=== PATIENT | male | born 1965 | race African-American/Black ===

== ENCOUNTER 2019-01-07 10:05 | Emergency (ER) | payer MEDICARE ==
[~2019-01-07] VITALS: Ht 166.4 cm; Wt 83.0 kg
[2019-01-07] MEDS ORDERED: MORPHINE SULFATE 10 MG/ML VIAL. IV ONE (11:15)
[2019-01-07] MEDS ORDERED: ONDANSETRON PF 4 MG/2 ML VIAL. IV ONE (11:15)
[2019-01-07] MEDS ORDERED: IV NORMAL SALINE 1000ML BAG 1,000 ML IV ONE (11:15)
[2019-01-07] MEDS ORDERED: CONTRAST GIVEN. MC PRN (11:30)
[2019-01-07] MEDS ORDERED: IOHEXOL 300 MG/ML 100ML VIAL. IV ONE (11:30)
[2019-01-07] MEDS ORDERED: ONDANSETRON ODT 4 MG TAB.RAPDIS. PO ONE (12:30)
[2019-01-07] MEDS ORDERED: MORPHINE SULFATE 4 MG/ML VIAL. IM ONE (12:30)
[2019-01-07 12:32] LABS: AMPHETAMINE/METHAMPHETAMINE NEG (NEG); BARBITURATES NEG (NEG); BENZODIAZEPINES NEG (NEG); CANNABINOIDS POS (NEG); COCAINE NEG (NEG); METHADONE NEG (NEG); OPIATES NEG (NEG); PHENCYCLIDINE NEG (NEG)
[2019-01-07 12:33] LABS: BILIRUBIN,URINE LARGE (NEG); CLARITY,URINE CLEAR; COLOR,URINE AMBER; NITRITE,URINE NEGATIVE (NEG); PROTEIN,URINE 100 mg/dL (NEG-TRACE)
[2019-01-07 12:43] LABS: BASO % 0 % (0-3); EOS % 0 % (0-3); HEMATOCRIT 49.1 % (39.0-53.0); HEMOGLOBIN 16.1 g/dL (13.0-17.5); LYMPH # 1.5 x10^3/uL (1.0-4.8); LYMPH % 13 % (24-48); MEAN CORPUSCULAR HEMOGLOBIN 29 pg (25-35); MEAN CORPUSCULAR HGB CONC 33 g/dL (31-37); MEAN CORPUSCULAR VOLUME 88 fL (79-100); MONO % 9 % (0-9); NEUT # 9.1 x10^3uL (1.8-7.7); NEUT % 78 % (31-73); PLATELET COUNT 287 x10^3/uL (140-400); RED BLOOD COUNT 5.61 x10^6/uL (4.30-5.70); RED CELL DISTRIBUTION WIDTH 15.8 % (11.5-14.5); WHITE BLOOD COUNT 11.7 x10^3/uL (4.0-11.0)
[2019-01-07 12:46] LABS: INFLUENZA A PATIENT NEGATIVE (NEGATIVE); INFLUENZA B PATIENT NEGATIVE (NEGATIVE)
[2019-01-07 12:49] LABS: HYALINE CASTS, URINE MANY /HPF; SQUAMOUS EPITHELIAL CELL,UR FEW /LPF
[2019-01-07 12:55] LABS: BACTERIA,URINE FEW /HPF (0-FEW); RBC,URINE OCC /HPF (0-2)
[2019-01-07 12:56] LABS: CALCIUM 9.1 mg/dL (8.5-10.1); CREATININE 1.1 mg/dL (0.7-1.3); GFR 84.4; POTASSIUM 4.5 mmol/L (3.5-5.1)
[2019-01-07 12:58] LABS: ALBUMIN 3.6 g/dL (3.4-5.0); ALBUMIN/GLOBULIN RATIO 1.1 (1.0-1.7); TOTAL BILIRUBIN 1.1 mg/dL (0.2-1.0)
[2019-01-07] MEDS ORDERED: MORPHINE SULFATE 4 MG/ML VIAL. IV ONE (13:15)
--- NOTE | 2019-01-07 13:47 | RAD ---
PQRS Compliance statement: One or more of the following individualized dose reduction techniques were utilized for this examination: 1. Automated exposure control. 2. Adjustment of the mA and/or kV according to patient size. 3. Use of iterative reconstruction technique. Indication:ABD PAIN H/O C DIFF INJ 75ML OMNI 300 NO PREV TECHNIQUE: CT abdomen and pelvis with IV contrast with multiplanar reformats. COMPARISON: Previous exam from 10/23/2004 FINDINGS: Heart is normal in size. No pericardial or pleural effusion. Clear lung bases. Liver, spleen, pancreas, right adrenal within normal limits. Status post cholecystectomy. Status post gastric bypass. 2.0 x 1.7 cm nodule is seen in the left adrenal gland. No nephrolithiasis or hydronephrosis. No free pelvic fluid or ascites. Small fat-containing right inguinal hernia. No enlarged retroperitoneal or pelvic adenopathy. No bowel obstruction. Normal appendix. The prostate and seminal vesicles show no large mass. Urinary bladder is within normal limits. Mild diffuse atherosclerotic disease of the abdominal aorta. No pneumoperitoneum. No suspicious bony lesion. IMPRESSION: 1. Left abdomen gland nodule may represent adenoma or metastasis. MRI abdomen with IV contrast recommended. Electronically signed by: Justin Serna DO (01/07/2019 1:44 PM) [id number]
[2019-01-07] MEDS ORDERED: HYDROmorphone 2 MG/ML VIAL IV ONE ×2 (15:00→16:15)
[2019-01-07] MEDS ORDERED: HYDR-3164 PO (16:25)
[2019-01-07] MEDS ORDERED: ONDA4TAB7 PO (16:25)
--- NOTE | 2019-01-07 16:26 | PHYS DOC ---
Past Medical History Past Medical History: Diabetes-Type II, Hypertension, Pancreatitis, Other Additional Past Medical Histor: C-DIFF Past Surgical History: Other Additional Past Surgical Histo: PANCREASE Alcohol Use: None Drug Use: None Adult General Chief Complaint Chief Complaint: ABDOMINAL PAIN HPI HPI Patient is a 54 year old male with history of pancreatitis, C. difficile, hypertension, diabetes type 2, who presents to the ED today complaining of 8 out of 10 generalized abdominal pain that is chronic. Patient states this pain has been going for 6 months, he states the pain began when he was diagnosed with C. difficile. He states he was treated for C. difficile. He states he has had diarrhea since then. Patient denies any fever, denies any vomiting, denies any melena. He states he was seen at [facility] for the same pain [address] Henriquez Review of Systems Review of Systems Constitutional: Denies fever or chills [] Eyes: Denies change in visual acuity, redness, or eye pain [] HENT: Denies nasal congestion or sore throat [] Respiratory: Denies cough or shortness of breath [] Cardiovascular: No additional information not addressed in HPI [] GI: Reports generalized abdominal pain with the diarrhea, denies nausea, vomiting, bloody stools : Denies dysuria or hematuria [] Musculoskeletal: Denies back pain or joint pain [] Integument: Denies rash or skin lesions [] Neurologic: Denies headache, focal weakness or sensory changes [] Endocrine: Denies polyuria or polydipsia [] All other systems were reviewed and found to be within normal limits, except as documented in this note. Current Medications Current Medications Current Medications Medications (Trade) Dose Ordered Sig/Rajiv Start Time Stop Time Status Last Admin Dose Admin Hydromorphone HCl (Dilaudid) 1 mg 1X ONCE 01/07/19 16:15 01/07/19 16:16 UNV Info (CONTRAST GIVEN -- Rx MONITORING) 1 each PRN DAILY PRN 01/07/19 11:30 01/09/19 11:29 Iohexol (Omnipaque 300 Mg/ml) 75 ml 1X ONCE 01/07/19 11:30 01/07/19 11:31 DC 01/07/19 13:25 75 ML Morphine Sulfate (Morphine Sulfate) 4 mg 1X ONCE 01/07/19 13:15 01/07/19 13:16 DC 01/07/19 13:04 4 MG Ondansetron HCl (Zofran Odt) 4 mg 1X ONCE 01/07/19 12:30 01/07/19 12:31 DC 01/07/19 12:58 4 MG Ondansetron HCl (Zofran) 4 mg 1X ONCE 01/07/19 11:15 01/07/19 11:16 DC Sodium Chloride 1,000 ml @ 1,000 mls/hr 1X ONCE 01/07/19 11:15 01/07/19 12:14 DC 01/07/19 13:02 1,000 MLS/HR Allergies Allergies Allergies Coded Allergies Type Severity Reaction Last Updated Verified aspirin Allergy Intermediate Hives 01/07/19 Yes fentanyl Allergy Intermediate Hives 01/07/19 Yes ketorolac Allergy Intermediate Hives 01/07/19 Yes tramadol Allergy Intermediate Hives 01/07/19 Yes Physical Exam Physical Exam Constitutional: Well developed, well nourished, no acute distress, non-toxic appearance. [] HENT: Normocephalic, atraumatic, bilateral external ears normal, oropharynx moist, no oral exudates, nose normal. [] Eyes: PERRLA, EOMI, conjunctiva normal, no discharge. [] Neck: Normal range of motion, no tenderness, supple, no stridor. [] Cardiovascular:Heart rate regular rhythm, no murmur [] Lungs & Thorax: Bilateral breath sounds clear to auscultation [] Abdomen: Old healed surgical incision noted on the lateral upper abdomen. Bowel sounds normal, soft, diffuse tenderness, no masses, no pulsatile masses. Negative psoas sign, negative obturator sign, no guarding Skin: Warm, dry, no erythema, no rash. [] Back: No tenderness, no CVA tenderness. [] Extremities: No tenderness, no cyanosis, no clubbing, ROM intact, no edema. [] Neurologic: Alert and oriented X 3, normal motor function, normal sensory function, no focal deficits noted. [] Psychologic: Affect normal, judgement normal, mood normal. [] Current Patient Data Vital Signs Vital Signs Date Time Temp Pulse Resp B/P (MAP) Pulse Ox O2 Delivery O2 Flow Rate FiO2 01/07/19 15:18 20 Room Air 01/07/19 13:04 100 01/07/19 10:15 98.2 112 122/84 (97) 98.2 Lab Values Laboratory Tests Test 01/07/19 10:50 01/07/19 11:55 01/07/19 12:35 Urine Collection Type Unknown Urine Color Dorina Urine Clarity Clear Urine pH 5.0 Urine Specific [place] >=1.030 Urine Protein 100 mg/dL (NEG-TRACE) Urine Glucose (UA) >=1000 mg/dL (NEG) Urine Ketones (Stick) 15 mg/dL (NEG) Urine Blood Negative (NEG) Urine Nitrite Negative (NEG) Urine Bilirubin Large (NEG) Urine Urobilinogen Dipstick 1.0 mg/dL (0.2 mg/dL) Urine Leukocyte Esterase Negative (NEG) Urine RBC Occ /HPF (0-2) Urine WBC 1-4 /HPF (0-4) Urine Squamous Epithelial Cells Few /LPF Urine Bacteria Few /HPF (0-FEW) Urine Hyaline Casts Many /HPF Urine Mucus Marked /LPF Urine Opiates Screen Neg (NEG) Urine Methadone Screen Neg (NEG) Urine Barbiturates Neg (NEG) Urine Phencyclidine Screen Neg (NEG) Urine Amphetamine/Methamphetamine Neg (NEG) Urine Benzodiazepines Screen Neg (NEG) Urine Cocaine Screen Neg (NEG) Urine Cannabinoids Screen Pos (NEG) Urine Ethyl Alcohol Neg (NEG) Influenza Type A Antigen Negative (NEGATIVE) Influenza Type B Antigen Negative (NEGATIVE) White Blood Count 11.7 x10^3/uL (4.0-11.0) H Red Blood Count 5.61 x10^6/uL (4.30-5.70) Hemoglobin 16.1 g/dL (13.0-17.5) Hematocrit 49.1 % (39.0-53.0) Mean Corpuscular Volume 88 fL (79-100) Mean Corpuscular Hemoglobin 29 pg (25-35) Mean Corpuscular Hemoglobin Concent 33 g/dL (31-37) Red Cell Distribution Width 15.8 % (11.5-14.5) H Platelet Count 287 x10^3/uL (140-400) Neutrophils (%) (Auto) 78 % (31-73) H Lymphocytes (%) (Auto) 13 % (24-48) L Monocytes (%) (Auto) 9 % (0-9) Eosinophils (%) (Auto) 0 % (0-3) Basophils (%) (Auto) 0 % (0-3) Neutrophils # (Auto) 9.1 x10^3uL (1.8-7.7) H Lymphocytes # (Auto) 1.5 x10^3/uL (1.0-4.8) Monocytes # (Auto) 1.0 x10^3/uL (0.0-1.1) Eosinophils # (Auto) 0.0 x10^3/uL (0.0-0.7) Basophils # (Auto) 0.0 x10^3/uL (0.0-0.2) Sodium Level 139 mmol/L (136-145) Potassium Level 4.5 mmol/L (3.5-5.1) Chloride Level 102 mmol/L (98-107) Carbon Dioxide Level 25 mmol/L (21-32) Anion Gap 12 (6-14) Blood Urea Nitrogen 20 mg/dL (8-26) Creatinine 1.1 mg/dL (0.7-1.3) Estimated GFR (Cockcroft-Gault) 84.4 BUN/Creatinine Ratio 18 (6-20) Glucose Level 218 mg/dL (70-99) H Calcium Level 9.1 mg/dL (8.5-10.1) Total Bilirubin 1.1 mg/dL (0.2-1.0) H Aspartate Amino Transferase (AST) 14 U/L (15-37) L Alanine Aminotransferase (ALT) 32 U/L (16-63) Alkaline Phosphatase 160 U/L (46-116) H Total Protein 7.0 g/dL (6.4-8.2) Albumin 3.6 g/dL (3.4-5.0) Albumin/Globulin Ratio 1.1 (1.0-1.7) Lipase 27 U/L (73-393) L Ethyl Alcohol Level < 10 mg/dL (0-10) Laboratory Tests 01/07/19 12:35 Laboratory Tests 01/07/19 12:35 EKG EKG [] Radiology/Procedures Radiology/Procedures [] Course & Med Decision Making Course & Med Decision Making Pertinent Labs and Imaging studies reviewed. (See chart for details) This is a 54-year-old male patient presenting to the ED today with chronic abdominal pain and chronic diarrhea from cd. He was diagnosed 6 months ago. He was treated. Patient did not have any diarrhea episodes in the ED hence unable to collect stool. CBC with a WBC of 11.7, CMP with glucose of 218, patient is diabetic. Patient is in no distress. CT of the abdomen and pelvic was negative for any acute findings, noted for left adrenal mass, recommended MRI. Consulted with Dr. Arenas on-call for Dr. Henriquez. Considering patient is stable, he 'll be discharged to follow-up in clinic. Dragon Disclaimer Dragon Disclaimer This electronic medical record was generated, in whole or in part, using a voice recognition dictation system. Departure Departure Impression: Primary Impression: Chronic generalized abdominal pain Additional Impression: Chronic diarrhea Disposition: HOME, SELF-CARE Condition: STABLE Referrals: Katelin HENRIQUEZ MD (PCP) Call his office tomorrow and set up a follow-up appointment JOIE WATTS MD Call his office tomorrow and set up a follow-up appointment Patient Instructions: Abdominal Pain Additional Instructions: You were evaluated in the emergency room for abdominal pain and chronic diarrhea. Please contact Dr. Henriquez's office tomorrow and set up a follow-up appointment. We also provided do a help desk coordinator, follow-up with them. Scripts Ondansetron Hcl (ZOFRAN) 4 Mg Tablet 1 TAB PO Q6HRS, #20 TAB Prov: KANDI GLEZ APRN 01/07/19 Hydrocodone/Apap 5-325 (NORCO 5-325 TABLET) 1 Each Tablet 1 TAB PO Q6HRS, #8 TAB Prov: KANDI GLEZ APRN 01/07/19 Problem Qualifiers KANDI GLEZ APRN Jan 07, 2019 16:26
[2019-01-07 16:33] VITALS: BP 170/85
[2019-02-23] MEDS ORDERED: FINA5TAB4 PO (12:50)
[2019-02-23] MEDS ORDERED: PREG300C PO (12:50)
[2019-02-23] MEDS ORDERED: LOSA-73 PO (12:50)
[2019-02-23] MEDS ORDERED: ZOLP10TA PO (12:50)
[2019-02-23] MEDS ORDERED: OMEP20CA10 PO (12:50)
[2019-02-23] MEDS ORDERED: ASPI-630 PO (12:50)
[2019-02-23] MEDS ORDERED: LIPA1CAP14 PO (12:50)
== END 2019-01-07 16:57 | disposition home or self-care (01) ==
LOC: ER 10:05
DX: G89.29 Other chronic pain (principal); R10.84 Generalized abdominal pain; R19.7 Diarrhea, unspecified; I10 Essential (primary) hypertension; E11.9 Type 2 diabetes mellitus without complications; Z88.4 Allergy status to anesthetic agent; Z88.6 Allergy status to analgesic agent; Z88.8 Allergy status to other drugs, medicaments and biological substances
CPT/HCPCS: 36415; 74177; 80053; 80307; 81001; 83690; 85025; 87804; 96361; 96374; 96375; 96376; 99284; G0480; J1170; J2270; J7030; Q0162; Q9967

== ENCOUNTER → 2019-07-30 | Day surgery (SDC) | payer MEDICARE, MEDICAID ==
[~2019-07-30] MED LIST: ASPI-630 PO; DEXTROSE 50% 25 GM / 50ML DISP.SYRIN. IV ONE; FINA5TAB4 PO; HYDR-3164 PO; INSU100C SQ; INSU100V37 SQ; IV RINGERS,LACTATED 1000ML 1,000 ML IV SCH; LIDOCAINE 2% PF 5 ML VIAL. ONE; LIPA1CAP14 PO; LOSA-73 PO; OMEP20CA10 PO; ONDA4TAB12 PO; ONDA4TAB7 PO; PREG300C PO; PROPOFOL 60 ML IV ONE; TAMS0.4C97 PO; ZOLP10TA PO
[2019-07-30 10:00] VITALS: BP 128/62
--- NOTE | 2019-08-03 11:07 | PATHOLOGY ---
[facility] Accession Number: [id number] . 01 Material submitted: . PART A: anastomosis - ANASTOMOSIS ULCER BX PART B: colon - RANDOM COLON BX'S . 01 Clinical history: . Weight loss, diarrhea. . 02 Diagnosis: A. Anastomosis ulcer, biopsy: - Granulation tissue and features of ulcer. - Abundant fungal organisms compatible with emy species present - Negative for malignancy. . B. Random colon, biopsy: - Fragments of unremarkable colonic mucosa. - There is no evidence of microscopic colitis or inflammatory bowel disease. . (MAP[place] [place] 08[place]02[place]2019) . Co-review: Dr. Lucila CHILD 08/03/2019 1045 Local . 02 Electronically signed: . Cruz Ghosh MD, Pathologist NPI- [id number] . 01 Gross description: . A. Received in formalin labeled "Brown, Aniket, anastomosis ulcer BX" is a 1.2 x 0.6 x 0.1 cm aggregate of tellez-brown mucosa fragments. The specimen is submitted in A1. . B. Received in formalin labeled "Brown, Aniket, random colon BXs" is a 1.8 x 0.7 x 0.1 cm aggregate of tellez-brown mucosa fragments. The specimen is submitted in B1. [place] [place] SY/[facility] 08/01/2019 1210 Local . 02 Pathologist provided ICD-10: K28.9, R19.7 . 02 CPT . 986864, 461815 Specimen Comment: A courtesy copy of this report has been sent to Specimen Comment: [phone], . Specimen Comment: Report sent to / DR VIERA Performed at: [address] [facility] [address], [place], [place] [id number] MD Jaime De Guzman MD Phone: [phone] Performed at: [address], [place], [place] [id number] MD Kimberly Henriquez MD Phone: [phone]
== END ==
LOC: ENDOS 07:39
PROVIDERS: ATTEND Internal Medicine Gastroenterology
DX: K52.9 Noninfective gastroenteritis and colitis, unspecified (principal); K64.8 Other hemorrhoids; K25.9 Gastric ulcer, unspecified as acute or chronic, without hemorrhage or perforation; F32.9 Major depressive disorder, single episode, unspecified; E11.9 Type 2 diabetes mellitus without complications; F41.9 Anxiety disorder, unspecified; K21.9 Gastro-esophageal reflux disease without esophagitis; I25.2 Old myocardial infarction; E78.00 Pure hypercholesterolemia, unspecified; Z90.49 Acquired absence of other specified parts of digestive tract; Z98.890 Other specified postprocedural states
CPT/HCPCS: 43239; 45380; 82962; 88305; J2001; J2704; J7042

== ENCOUNTER 2020-07-19 14:19 | Inpatient (IN) | payer MEDICARE, MEDICAID ==
[~2020-07-19] VITALS: Ht 165.1 cm; Wt 62.7 kg
[~2020-07-19 14:19] MED LIST changes: -DEXTROSE 50% 25 GM / 50ML DISP.SYRIN. IV ONE; -IV RINGERS,LACTATED 1000ML 1,000 ML IV SCH; -LIDOCAINE 2% PF 5 ML VIAL. ONE; -OMEP20CA10 PO; +OMEP20CA16 PO; -PROPOFOL 60 ML IV ONE
[2020-07-19] MEDS ORDERED: IV NORMAL SALINE 1000ML BAG 1,000 ML IV ONE (15:30)
[2020-07-19] MEDS ORDERED: ONDANSETRON PF 4 MG/2 ML VIAL. IVP ONE (15:30)
[2020-07-19] MEDS ORDERED: HYDROmorphone 2 MG/ML VIAL IV ONE ×2 (15:30→20:45)
--- NOTE | 2020-07-19 16:03 | PHYS DOC ---
Past Medical History Past Medical History: Depression, Diabetes-Type II, Hypertension, Pancreatitis, Other Additional Past Medical Histor: C-DIFF Past Surgical History: Other Additional Past Surgical Histo: PANCREASE,ABD SURGERY BOWEL TEAR Smoking Status: Current Every Day Smoker Alcohol Use: None Drug Use: None General Adult EDM: Chief Complaint: ABDOMINAL PAIN HPI: HPI: History obtained from the patient. Patient is a 55-year-old male past medical history notable for recent bowel perforation and surgery at [facility] who presents with abdominal pain for the past 6 days. Patient states that he has had intractable diffuse abdominal pain over the past 6 days. He notes it feels similar to when he had a bowel perforation. He states he has been seen in multiple emergency department since then and diagnosed with colitis. He states he has been taking amoxicillin with minimal relief. He notes that he is having normal bowel movements. He does note multiple episodes of nonbloody nonbilious emesis. states that the vomiting appears feculent in nature. Denies any objective fevers. Denies daily alcohol usage or drug usage. Endorses tobacco use. Denies urinary symptoms including dysuria or hematuria. Does note one episode of syncope after vomiting. Denies headache. States the pain is sharp, nonradiating, and constant. No alleviating factors. No other complaints. Review of Systems: Review of Systems: Constitutional: Denies fever or chills. [] Eyes: Denies change in visual acuity. [] HENT: Denies nasal congestion or sore throat. [] Respiratory: Denies cough or shortness of breath. [] Cardiovascular: Denies chest pain or edema. [] GI: Positive for abdominal pain and vomiting. : Positive for dysuria Musculoskeletal: Denies back pain or joint pain. [] Integument: Denies rash. [] Neurologic: Denies headache, focal weakness or sensory changes. [] Endocrine: Denies polyuria or polydipsia. [] Lymphatic: Denies swollen glands. [] Psychiatric: Denies depression or anxiety. [] Heart Score: Risk Factors: Risk Factors: DM, Current or recent (<one month) smoker, HTN, HLP, family history of CAD, obesity. Risk Scores: Score 0 - 3: 2.5% MACE over next 6 weeks - Discharge Home Score 4 - 6: 20.3% MACE over next 6 weeks - Admit for Clinical Observation Score 7 - 10: 72.7% MACE over next 6 weeks - Early Invasive Strategies Current Medications: Current Medications Medications (Trade) Dose Ordered Sig/Rajiv Start Time Stop Time Status Last Admin Dose Admin Hydromorphone HCl (Dilaudid) 1 mg 1X ONCE 07/19/20 15:30 07/19/20 15:31 DC 07/19/20 15:45 1 MG Ondansetron HCl (Zofran) 4 mg 1X ONCE 07/19/20 15:30 07/19/20 15:31 DC 07/19/20 15:44 4 MG Sodium Chloride 1,000 ml @ 1,000 mls/hr 1X ONCE 07/19/20 15:30 07/19/20 16:29 07/19/20 15:47 1,000 MLS/HR Allergies: Allergies: Allergies Coded Allergies Type Severity Reaction Last Updated Verified aspirin Allergy Intermediate Hives 07/30/19 Yes fentanyl Allergy Intermediate Hives 07/30/19 Yes ketorolac Allergy Intermediate Hives 07/30/19 Yes tramadol Allergy Intermediate Hives 07/30/19 Yes Physical Exam: PE: Constitutional: Well developed, well nourished, no acute distress, non-toxic appearance. [] HENT: Normocephalic, atraumatic, bilateral external ears normal, oropharynx moist, no oral exudates, nose normal. [] Eyes: PERRLA, EOMI, conjunctiva normal, no discharge. [] Neck: Normal range of motion, no tenderness, supple, no stridor. [] Cardiovascular:Heart rate regular rhythm, no murmur [] Lungs & Thorax: Bilateral breath sounds clear to auscultation [] Abdomen: Involuntary guarding noted in all quadrants. No obvious rigidity appreciated. Multiple surgical scars in the abdomen noted appears well-healed. Skin: Warm, dry, no erythema, no rash. [] Back: No tenderness, no CVA tenderness. [] Extremities: No tenderness, no cyanosis, no clubbing, ROM intact, no edema. [] Neurologic: Alert and oriented X 3, normal motor function, normal sensory function, no focal deficits noted. [] Psychologic: Affect normal, judgement normal, mood normal. [] Current Patient Data: Labs: Laboratory Tests Test 07/19/20 15:50 White Blood Count 8.8 x10^3/uL Red Blood Count 4.75 x10^6/uL Hemoglobin 13.0 g/dL Hematocrit 38.9 % Mean Corpuscular Volume 82 fL Mean Corpuscular Hemoglobin 27 pg Mean Corpuscular Hemoglobin Concent 33 g/dL Red Cell Distribution Width 19.4 % Platelet Count 247 x10^3/uL Neutrophils (%) (Auto) 77 % Lymphocytes (%) (Auto) 14 % Monocytes (%) (Auto) 7 % Eosinophils (%) (Auto) 1 % Basophils (%) (Auto) 1 % Neutrophils # (Auto) 6.8 x10^3/uL Lymphocytes # (Auto) 1.3 x10^3/uL Monocytes # (Auto) 0.6 x10^3/uL Eosinophils # (Auto) 0.0 x10^3/uL Basophils # (Auto) 0.0 x10^3/uL Sodium Level 137 mmol/L Potassium Level 3.5 mmol/L Chloride Level 101 mmol/L Carbon Dioxide Level 31 mmol/L Anion Gap 5 Blood Urea Nitrogen 9 mg/dL Creatinine 0.5 mg/dL Estimated GFR (Cockcroft-Gault) 208.9 BUN/Creatinine Ratio 18 Glucose Level 169 mg/dL Lactic Acid Level 1.0 mmol/L Calcium Level 8.9 mg/dL Total Bilirubin 0.5 mg/dL Aspartate Amino Transf (AST/SGOT) 19 U/L Alanine Aminotransferase (ALT/SGPT) 43 U/L Alkaline Phosphatase 148 U/L Total Protein 6.9 g/dL Albumin 3.1 g/dL Albumin/Globulin Ratio 0.8 Lipase 17 U/L Current Medications Medications (Trade) Dose Ordered Sig/Rajiv Route PRN Reason Start Time Stop Time Status Last Admin Dose Admin Hydromorphone HCl (Dilaudid) 1 mg 1X ONCE IV 07/19/20 15:30 07/19/20 15:31 DC 07/19/20 15:45 Ondansetron HCl (Zofran) 4 mg 1X ONCE IVP 07/19/20 15:30 07/19/20 15:31 DC 07/19/20 15:44 Sodium Chloride 1,000 ml @ 1,000 mls/hr 1X ONCE IV 07/19/20 15:30 07/19/20 16:29 DC 07/19/20 15:47 Iohexol (Omnipaque 300 Mg/ml) 75 ml 1X ONCE IV 07/19/20 16:45 07/19/20 16:46 DC 07/19/20 17:15 Info (CONTRAST GIVEN -- Rx MONITORING) 1 each PRN DAILY PRN MC SEE COMMENTS 07/19/20 17:00 07/21/20 16:59 Hydromorphone HCl (Dilaudid) 1 mg 1X ONCE IVP 07/19/20 18:45 07/19/20 18:46 DC 07/19/20 18:42 Vital Signs: Vital Signs Date Time Temp Pulse Resp B/P (MAP) Pulse Ox O2 Delivery O2 Flow Rate FiO2 07/19/20 15:09 98.8 74 22 215/92 (133) 100 Room Air 98.8 EKG: EKG: [] Radiology/Procedures: Radiology/Procedures: [facility] [address] [place] [address] IMAGING REPORT Signed PATIENT: SARAN CLARK ACCOUNT: [id number] : 1965 LOCATION: ER AGE: 55 SEX: M EXAM STATUS: REG ER ORD. PHYSICIAN: LUIS SKINNER DO REASON: abdominal pain diffuse. h/o recent bowel perforation. feculent vomitng PROCEDURE: CT ABD PELV W/ IV CONTRST ONLY Exam: CT of abdomen and pelvis with contrast INDICATION: Abdominal pain, diffuse TECHNIQUE: Sequential axial images through the abdomen and pelvis obtained following the administration of 75 mL of Omni 300 IV contrast. Sagittal and coronal reformatted images were reconstructed from the axial data and reviewed. Comparisons: 06/11/2019 FINDINGS: Heart size is normal. No pericardial effusion. Visualized lung bases are clear. No pleural effusion. Liver, spleen, and pancreas are unremarkable. Gallbladder is surgically absent. Stable left adrenal nodule measuring up to 2 cm. Kidneys demonstrate symmetric enhancement. No perinephric inflammation or hydronephrosis. No renal or ureteral calculi. Bladder is distended and appears thin-walled. Prostate is not enlarged. There is wall thickening involving the ascending colon as well as distal loops of small bowel. Remainder of the small bowel is unremarkable. No free intra-abdominal air or fluid. No obstruction. Abdominal aorta has a normal course and caliber. No enlarged intra-abdominal lymph nodes are identified. No suspicious osseous lesions or acute fractures. IMPRESSION: Wall thickening involving the ascending colon and distal loops of small bowel. Nonspecific in etiology may represent enterocolitis or be postoperative in etiology. No free air or fluid fluid is identified. Recommend correlation with short-term follow-up imaging to reassess. Exposure: One or more of the following in the visualized dose reduction techniques were utilized for this examination: 1. Automated exposure control 2. Adjustment of the MA and/or KV according to patient size 3. Use of iterative of reconstructive technique Electronically signed by: Merly Roberto MD (07/19/2020 5:34 PM) [id number] DICTATED and SIGNED BY: MERLY ROBERTO MD DATE: 07/19/20 1734 [] Course & Med Decision Making: Course & Med Decision Making Pertinent Labs and Imaging studies reviewed. (See chart for details) Patient is a 55-year-old male who presents with chief complaint of intractable abdominal pain over the past 6 days. Initial vital signs unremarkable. Physical exam noted above. CT imaging reveals no acute surgical emergency. Nonspecific colitis noted. Labs been reassuring including no leukocytosis or lactic acid. On repeat examination he still quite uncomfortable. I did speak with the the patient's surgeon Dr. Grier at [facility]. He states that he did have mesh repair for a potentially leaking peptic ulcer in his stomach. At this time given there is no acute surgical emergency the patient would not be transferred to [facility]. He will be hospitalized here for intractable nadira pain and further exams. Dragon Disclaimer: Dragon Disclaimer: This electronic medical record was generated, in whole or in part, using a voice recognition dictation system. Departure Departure Impression: Primary Impression: Intractable abdominal pain Disposition: ADMITTED INPATIENT Condition: STABLE Referrals: Katelin VIERA MD (PCP) Justicifation of Admission Dx: Justifications for Admission: Justification of Admission Dx: Yes Comments: intractable abdominal pain LUIS SKINNER DO Jul 19, 2020 16:02
[2020-07-19 16:05] LABS: BASO % 1 % (0-3); EOS % 1 % (0-3); HEMATOCRIT 38.9 % (39.0-53.0); LYMPH # 1.3 x10^3/uL (1.0-4.8); LYMPH % 14 % (24-48); MEAN CORPUSCULAR HEMOGLOBIN 27 pg (25-35); MEAN CORPUSCULAR HGB CONC 33 g/dL (31-37); MEAN CORPUSCULAR VOLUME 82 fL (79-100); MONO # 0.6 x10^3/uL (0.0-1.1); MONO % 7 % (0-9); NEUT # 6.8 x10^3/uL (1.8-7.7); NEUT % 77 % (31-73); PLATELET COUNT 247 x10^3/uL (140-400); RED BLOOD COUNT 4.75 x10^6/uL (4.30-5.70); RED CELL DISTRIBUTION WIDTH 19.4 % (11.5-14.5); WHITE BLOOD COUNT 8.8 x10^3/uL (4.0-11.0)
[2020-07-19 16:07] LABS: CALCIUM 8.9 mg/dL (8.5-10.1); CREATININE 0.5 mg/dL (0.7-1.3); GFR 208.9; POTASSIUM 3.5 mmol/L (3.5-5.1)
[2020-07-19 16:12] LABS: ALBUMIN 3.1 g/dL (3.4-5.0); ALBUMIN/GLOBULIN RATIO 0.8 (1.0-1.7); TOTAL BILIRUBIN 0.5 mg/dL (0.2-1.0); TOTAL PROTEIN 6.9 g/dL (6.4-8.2)
[2020-07-19] MEDS ORDERED: IOHEXOL 300 MG/ML 100ML VIAL. IV ONE (16:45)
[2020-07-19] MEDS ORDERED: CONTRAST GIVEN. MC PRN (17:00)
--- NOTE | 2020-07-19 17:36 | RAD ---
Exam: CT of abdomen and pelvis with contrast INDICATION: Abdominal pain, diffuse TECHNIQUE: Sequential axial images through the abdomen and pelvis obtained following the administration of 75 mL of Omni 300 IV contrast. Sagittal and coronal reformatted images were reconstructed from the axial data and reviewed. Comparisons: 06/11/2019 FINDINGS: Heart size is normal. No pericardial effusion. Visualized lung bases are clear. No pleural effusion. Liver, spleen, and pancreas are unremarkable. Gallbladder is surgically absent. Stable left adrenal nodule measuring up to 2 cm. Kidneys demonstrate symmetric enhancement. No perinephric inflammation or hydronephrosis. No renal or ureteral calculi. Bladder is distended and appears thin-walled. Prostate is not enlarged. There is wall thickening involving the ascending colon as well as distal loops of small bowel. Remainder of the small bowel is unremarkable. No free intra-abdominal air or fluid. No obstruction. Abdominal aorta has a normal course and caliber. No enlarged intra-abdominal lymph nodes are identified. No suspicious osseous lesions or acute fractures. IMPRESSION: Wall thickening involving the ascending colon and distal loops of small bowel. Nonspecific in etiology may represent enterocolitis or be postoperative in etiology. No free air or fluid fluid is identified. Recommend correlation with short-term follow-up imaging to reassess. Exposure: One or more of the following in the visualized dose reduction techniques were utilized for this examination: 1. Automated exposure control 2. Adjustment of the MA and/or KV according to patient size 3. Use of iterative of reconstructive technique Electronically signed by: Merly Jiménez MD (07/19/2020 5:34 PM) [id number]
[2020-07-19] MEDS ORDERED: HYDROmorphone 2 MG/ML VIAL IVP ONE (18:45)
[2020-07-19] MEDS ORDERED: ONDANSETRON PF 4 MG/2 ML VIAL. IV PRN (21:00)
--- NOTE | 2020-07-19 21:37 | NUR ---
The patient, SARAN CLARK, 55 y/o, M admitted by DENISE ELLIOTT III, DO, was given written information regarding hospital policies, unit procedures and contact persons. Valuables were checked and left with him.
[2020-07-19 21:40] VITALS: BP 136/81
[2020-07-19] MEDS: MORPHINE SULFATE 4 MG/ML VIAL. IV PRN (22:32)
[2020-07-19] MEDS ORDERED: NICOTINE POLACRILEX 2MG GUM PACKAGE of 12. BC PRN (23:00)
[2020-07-19] MEDS: ZOLPIDEM 5 MG TABLET. PO PRN (23:18)
[2020-07-19] MEDS: NICOTINE 21MG PATCH. TD PRN (23:19)
[2020-07-20] MEDS: MORPHINE SULFATE 4 MG/ML VIAL. IV PRN ×5 (00:27→09:10)
[2020-07-20 03:00] VITALS: BP 135/83
[2020-07-20 07:00] VITALS: BP 159/88
[2020-07-20 07:26] LABS: CALCIUM 8.2 mg/dL (8.5-10.1); CREATININE 0.6 mg/dL (0.7-1.3); GFR 169.3; POTASSIUM 3.6 mmol/L (3.5-5.1)
--- NOTE | 2020-07-20 08:36 | PDOC1 ---
History and Physical Date of Admission Date of Admission DATE: 07/20/20 TIME: 08:28 Identification/Chief Complaint Chief Complaint Abdominal pain Source Source: Patient History of Present Illness History of Present Illness Mr Calixto is a 55yo M w/ PMHx Depression, Diabetes-Type II, Hypertension, HLD, c- difficile, BPH, gallstone pancreatitis s/p Whipple and anastomotic ulcer s/p repair of perforated ulcer w/ Dr. Grier ~2 months ago at [facility] who presents to the ED with progressively worsening abdominal pain for the past 6 days. Patient states that he has had intractable diffuse abdominal pain over the past 6 days. He notes it feels similar to when he had a bowel perforation. He states he has been seen in multiple emergency department since then and diagnosed with colitis. He states he has been taking amoxicillin with minimal relief. He notes that he is having normal bowel movements. He does note multiple episodes of nonbloody nonbilious emesis since 07/18 daily and his notes that the vomiting appears feculent in nature. Denies any objective fevers. He has a remote alcohol history and stopped over a decade ago. Endorses tobacco use and marijuana use. Denies urinary symptoms including dysuria or hematuria. Does note one episode of syncope after vomiting. Denies headache. States the pain is sharp, nonradiating, and constant. No alleviating factors. No other complaints. ED physician d/w the patient's surgeon Dr. Grier at [facility]. He states that he did have mesh repair for a potentially leaking peptic ulcer in his stomach [address] abd with Wall thickening involving the ascending colon and distal loops of small bowel. Nonspecific in etiology may represent enterocolitis or be postoperative in etiology. Labs with NA 138, K3.6, BUN 7, CR 0.6, glucose 219, WBC 8.8, Hb 13, platelets 247, LFTs within normal limits with exception of slightly elevated alkaline phosphatase in the 140s. Lipase normal. Admitted for further treatment and pain control, unable to take p.o. Past Medical History Cardiovascular: HTN, Hyperlipidemia Infectious disease: Other (C difficile) Renal/: Benign prostatic enlarg. Endocrine: Diabetes Past Surgical History Past Surgical History Whipple, cholecystectomy, repair of perforated ulcer Past Surgical History: Cholecystectomy Family History Family History: High Cholestrol, Hypertension Social History Smoke: 1 pack per day ALCOHOL: none Drugs: Marijuana Current Problem List Problem List Problems Medical Problems: (1) Intractable abdominal pain Status: Acute Current Medications Current Medications Current Medications Hydromorphone HCl (Dilaudid) 1 mg 1X ONCE IV Last administered on 07/19/20at 15:45; Start 07/19/20 at 15:30; Stop 07/19/20 at 15:31; Status DC Ondansetron HCl (Zofran) 4 mg 1X ONCE IVP Last administered on 07/19/20at 15:44; Start 07/19/20 at 15:30; Stop 07/19/20 at 15:31; Status DC Sodium Chloride 1,000 ml @ 1,000 mls/hr 1X ONCE IV Last administered on 07/19/20at 15:47; Start 07/19/20 at 15:30; Stop 07/19/20 at 16:29; Status DC Iohexol (Omnipaque 300 Mg/ml) 75 ml 1X ONCE IV Last administered on 07/19/20at 17:15; Start 07/19/20 at 16:45; Stop 07/19/20 at 16:46; Status DC Info (CONTRAST GIVEN -- Rx MONITORING) 1 each PRN DAILY PRN MC SEE COMMENTS; Start 07/19/20 at 17:00; Stop 07/21/20 at 16:59 Hydromorphone HCl (Dilaudid) 1 mg 1X ONCE IVP Last administered on 07/19/20at 18:42; Start 07/19/20 at 18:45; Stop 07/19/20 at 18:46; Status DC Hydromorphone HCl (Dilaudid) 1 mg 1X ONCE IV Last administered on 07/19/20at 2 0:42; Start 07/19/20 at 20:45; Stop 07/19/20 at 20:46; Status DC Ondansetron HCl (Zofran) 4 mg PRN Q8HRS PRN IV NAUSEA/VOMITING; Start 07/19/20 at 21:00; Stop 07/20/20 at 20:59 Morphine Sulfate (Morphine Sulfate) 4 mg PRN Q2HR PRN IV PAIN Last administered on 07/20/20at 06:43; Start 07/19/20 at 21:00; Stop 07/20/20 at 20:59 Zolpidem Tartrate (Ambien) 5 mg PRN QHS PRN PO INSOMNIA Last administered on 07/19/20at 23:18; Start 07/19/20 at 23:00 Nicotine Polacrilex (Nicorette Gum) 1 each PRN Q1HR PRN BC SMOKING CESSATION Last administered on 07/20/20at 04:37; Start 07/19/20 at 23:00 Nicotine (Nicoderm Cq 21mg) 1 patch PRN DAILY PRN TD SMOKING CESSATION Last administered on 07/19/20at 23:19; Start 07/19/20 at 23:00 Active Scripts Active Ondansetron Odt (Ondansetron) 4 Mg Tab.rapdis 1 Tab PO PRN Q6-8HRS 4 Days Zofran (Ondansetron Hcl) 4 Mg Tablet 1 Tab PO Q6HRS [place] 5-325 Tablet (Acetaminophen/Hydrocodone Bitart) 1 Each Tablet 1 Tab PO Q6HRS Reported Humalog (Insulin Lispro) 100 Unit/1 Ml Cartridge 100 Unit SQ AC Tresiba (Insulin Degludec) 100 Unit/1 Ml Vial 30 Unit SQ HS Omeprazole 20 Mg Capsule.dr 1 Cap PO DAILY Zenpep Dr 20,000 Units Capsule (Lipase/Protease/Amylase) 1 Each Capsule.dr 1 Each PO TID Aspirin 81 Mg Tab.chew 1 Tab PO DAILY Finasteride 5 Mg Tablet 1 Tab PO DAILY Losartan Potassium 50 Mg Tablet 50 Mg PO DAILY Lyrica (Pregabalin) 300 Mg Capsule 1 Cap PO BID Ambien (Zolpidem Tartrate) 10 Mg Tablet 10 Mg PO PRN QHS PRN Allergies Allergies: Coded Allergies: aspirin (Verified Allergy, Intermediate, Hives, 07/30/19) IS ABLE TO TAKE LOW DOSE, 81MG, ONLY fentanyl (Verified Allergy, Intermediate, Hives, 07/30/19) ketorolac (Verified Allergy, Intermediate, Hives, 07/30/19) tramadol (Verified Allergy, Intermediate, Hives, 07/30/19) TOLERATES HYDROCODONE ROS General: YES: Fatigue, Malaise; No: Chills, Night Sweats, Appetite, Other PSYCHOLOGICAL ROS: YES: Anxiety; No: Behavioral Disorder, Concentration difficultie, Decreased libido, Depression, Disorientation, Hallucinations, Hostility, Irritablity, Memory difficulties, Mood Swings, Obsessive thoughts, Physical abuse, Sexual abuse, Sleep disturbances, Suicidal ideation, Other Eyes: No Blurry vision, No Decreased vision, No Double vision, No Dry eyes, No Excessive tearing, No Eye Pain, No Itchy Eyes, No Loss of vision, No Photophobia, No Scotomata, No Uses contacts, No Uses glasses, No Other HEENT: No: Heacaches, Visual Changes, Hearing change, Nasal congestion, Nasal discharge, Oral lesions, Sinus pain, Sore Throat, Epistaxis, Sneezing, Snoring, Tinnitus, Vertigo, Vocal changes, Other ALLERGY AND IMMUNOLOGY: No: Hives, Insect Bite Sensitivity, Itchy/Watery Eyes, Nasal Congestion, Post Nasal Drip, Seasonal Allergies, Other Hematological and Lymphatic: No: Bleeding Problems, Blood Clots, Blood Transfusions, Brusing, Night Sweats, Pallor, Swollen Lymph Nodes, Other ENDOCRINE: No: Breast Changes, Galactorrhea, Hair Pattern Changes, Hot Flashes, Malaise/lethargy, Mood Swings, Palpitations, Polydipsia/polyuria, Skin Changes, Temperature Intolerance, Unexpected Weight Changes, Other Breast: No New/Changing Breast Lumps, No Nipple changes, No Nipple discharge, No Other Respiratory: No: Cough, Hemoptysis, Orthopnea, Pleuritic Pain, Shortness of breath, SOB with excertion, Sputum Changes, Stridor, Tachypnea, Wheezing, Other Cardiovascular: No Chest Pain, No Palpitations, No Orthopnea, No Paroxysmal Noc. Dyspnea, No Edema, No Lt Headedness, No Other Gastrointestinal: Yes Nausea, Yes Vomiting, Yes Abdominal Pain; No Diarrhea, No Constipation, No Melena, No Hematochezia, No Other Genitourinary: No Dysuria, No Frequency, No Incontinence, No Hematuria, No Retention, No Discharge, No Urgency, No Pain, No Flank Pain, No Other, No , No , No , No , No , No , No Musculoskeletal: No Gait Disturbance, No Joint Pain, No Joint Stiffness, No Joint Swelling, No Muscle Pain, No Muscular Weakness, No Pain In:, No Swelling In:, No Other Neurological: No Behavorial Changes, No Bowel/Bladder ControlChng, No Confusion, No Dizziness, No Gait Disturbance, No Headaches, No Impaired Coord/balance, No Memory Loss, No Numbness/Tingling, No Seizures, No Speech Problems, No Tremors, No Visual Changes, No Weakness, No Other Skin: No Dry Skin, No Eczema, No Hair Changes, No Lumps, No Mole Changes, No Mottling, No Nail Changes, No Pruritus, No Rash, No Skin Lesion Changes, No Other, No Acne Physical Exam General: Alert, Oriented X3, Cooperative, mild distress HEENT: Atraumatic, PERRLA, EOMI, Mucous membr. moist/pink Lungs: Clear to auscultation, Normal air movement Heart: S1S2, RRR, no thrills, no rubs, no gallops, no murmurs Abdomen: Normal bowel sounds, Soft, No hepatosplenomegaly, No masses, Other (Epigastric pain) Rectal Exam: not examined Extremities: No clubbing, No cyanosis, No edema, Normal pulses, No tenderness/swelling Skin: No rashes, No breakdown, No significant lesion Neuro: Normal gait, Normal speech, Strength at 5/5 X4 ext, Normal tone, Sensation intact, Cranial nerves 3-12 NL, Reflexes 2+ Psych/Mental Status: Mental status NL, Mood NL Vitals Vitals Vital Signs Date Time Temp Pulse Resp B/P (MAP) Pulse Ox O2 Delivery O2 Flow Rate FiO2 07/20/20 07:13 18 98 Room Air 07/20/20 03:00 98.6 82 135/83 (100) 98.6 Labs Labs Laboratory Tests Test 07/19/20 15:50 07/19/20 22:19 07/19/20 23:49 07/20/20 06:35 White Blood Count 8.8 x10^3/uL (4.0-11.0) Red Blood Count 4.75 x10^6/uL (4.30-5.70) Hemoglobin 13.0 g/dL (13.0-17.5) Hematocrit 38.9 % (39.0-53.0) Mean Corpuscular Volume 82 fL (79-100) Mean Corpuscular Hemoglobin 27 pg (25-35) Mean Corpuscular Hemoglobin Concent 33 g/dL (31-37) Red Cell Distribution Width 19.4 % (11.5-14.5) Platelet Count 247 x10^3/uL (140-400) Neutrophils (%) (Auto) 77 % (31-73) Lymphocytes (%) (Auto) 14 % (24-48) Monocytes (%) (Auto) 7 % (0-9) Eosinophils (%) (Auto) 1 % (0-3) Basophils (%) (Auto) 1 % (0-3) Neutrophils # (Auto) 6.8 x10^3/uL (1.8-7.7) Lymphocytes # (Auto) 1.3 x10^3/uL (1.0-4.8) Monocytes # (Auto) 0.6 x10^3/uL (0.0-1.1) Eosinophils # (Auto) 0.0 x10^3/uL (0.0-0.7) Basophils # (Auto) 0.0 x10^3/uL (0.0-0.2) Sodium Level 137 mmol/L (136-145) 138 mmol/L (136-145) Potassium Level 3.5 mmol/L (3.5-5.1) 3.6 mmol/L (3.5-5.1) Chloride Level 101 mmol/L (98-107) 102 mmol/L (98-107) Carbon Dioxide Level 31 mmol/L (21-32) 29 mmol/L (21-32) Anion Gap 5 (6-14) 7 (6-14) Blood Urea Nitrogen 9 mg/dL (8-26) 7 mg/dL (8-26) Creatinine 0.5 mg/dL (0.7-1.3) 0.6 mg/dL (0.7-1.3) Estimated GFR (Cockcroft-Gault) 208.9 169.3 BUN/Creatinine Ratio 18 (6-20) Glucose Level 169 mg/dL (70-99) 219 mg/dL (70-99) Lactic Acid Level 1.0 mmol/L (0.4-2.0) 1.2 mmol/L (0.4-2.0) Calcium Level 8.9 mg/dL (8.5-10.1) 8.2 mg/dL (8.5-10.1) Total Bilirubin 0.5 mg/dL (0.2-1.0) Aspartate Amino Transf (AST/SGOT) 19 U/L (15-37) Alanine Aminotransferase (ALT/SGPT) 43 U/L (16-63) Alkaline Phosphatase 148 U/L (46-116) Total Protein 6.9 g/dL (6.4-8.2) Albumin 3.1 g/dL (3.4-5.0) Albumin/Globulin Ratio 0.8 (1.0-1.7) Lipase 17 U/L (73-393) Glucose (Fingerstick) 203 mg/dL (70-99) Test 07/20/20 08:09 Glucose (Fingerstick) 242 mg/dL (70-99) Laboratory Tests Test 07/19/20 15:50 07/19/20 22:19 07/19/20 23:49 07/20/20 06:35 White Blood Count 8.8 x10^3/uL (4.0-11.0) Red Blood Count 4.75 x10^6/uL (4.30-5.70) Hemoglobin 13.0 g/dL (13.0-17.5) Hematocrit 38.9 % (39.0-53.0) Mean Corpuscular Volume 82 fL (79-100) Mean Corpuscular Hemoglobin 27 pg (25-35) Mean Corpuscular Hemoglobin Concent 33 g/dL (31-37) Red Cell Distribution Width 19.4 % (11.5-14.5) Platelet Count 247 x10^3/uL (140-400) Neutrophils (%) (Auto) 77 % (31-73) Lymphocytes (%) (Auto) 14 % (24-48) Monocytes (%) (Auto) 7 % (0-9) Eosinophils (%) (Auto) 1 % (0-3) Basophils (%) (Auto) 1 % (0-3) Neutrophils # (Auto) 6.8 x10^3/uL (1.8-7.7) Lymphocytes # (Auto) 1.3 x10^3/uL (1.0-4.8) Monocytes # (Auto) 0.6 x10^3/uL (0.0-1.1) Eosinophils # (Auto) 0.0 x10^3/uL (0.0-0.7) Basophils # (Auto) 0.0 x10^3/uL (0.0-0.2) Sodium Level 137 mmol/L (136-145) 138 mmol/L (136-145) Potassium Level 3.5 mmol/L (3.5-5.1) 3.6 mmol/L (3.5-5.1) Chloride Level 101 mmol/L (98-107) 102 mmol/L (98-107) Carbon Dioxide Level 31 mmol/L (21-32) 29 mmol/L (21-32) Anion Gap 5 (6-14) 7 (6-14) Blood Urea Nitrogen 9 mg/dL (8-26) 7 mg/dL (8-26) Creatinine 0.5 mg/dL (0.7-1.3) 0.6 mg/dL (0.7-1.3) Estimated GFR (Cockcroft-Gault) 208.9 169.3 BUN/Creatinine Ratio 18 (6-20) Glucose Level 169 mg/dL (70-99) 219 mg/dL (70-99) Lactic Acid Level 1.0 mmol/L (0.4-2.0) 1.2 mmol/L (0.4-2.0) Calcium Level 8.9 mg/dL (8.5-10.1) 8.2 mg/dL (8.5-10.1) Total Bilirubin 0.5 mg/dL (0.2-1.0) Aspartate Amino Transf (AST/SGOT) 19 U/L (15-37) Alanine Aminotransferase (ALT/SGPT) 43 U/L (16-63) Alkaline Phosphatase 148 U/L (46-116) Total Protein 6.9 g/dL (6.4-8.2) Albumin 3.1 g/dL (3.4-5.0) Albumin/Globulin Ratio 0.8 (1.0-1.7) Lipase 17 U/L (73-393) Glucose (Fingerstick) 203 mg/dL (70-99) Test 07/20/20 08:09 Glucose (Fingerstick) 242 mg/dL (70-99) Images Images CT abdomen/pelvis: Heart size is normal. No pericardial effusion. Visualized lung bases are clear. No pleural effusion. Liver, spleen, and pancreas are unremarkable. Gallbladder is surgically absent. Stable left adrenal nodule measuring up to 2 cm. Kidneys demonstrate symmetric enhancement. No perinephric inflammation or hydronephrosis. No renal or ureteral calculi. Bladder is distended and appears thin-walled. Prostate is not enlarged. There is wall thickening involving the ascending colon as well as distal loops of small bowel. Remainder of the small bowel is unremarkable. No free intra- abdominal air or fluid. No obstruction. Abdominal aorta has a normal course and caliber. No enlarged intra-abdominal lymph nodes are identified. No suspicious osseous lesions or acute fractures. IMPRESSION: Wall thickening involving the ascending colon and distal loops of small bowel. Nonspecific in etiology may represent enterocolitis or be postoperative in etiology. No free air or fluid fluid is identified. Recommend correlation with short-term follow-up imaging to reassess. VTE Prophylaxis Ordered VTE Prophylaxis Devices: Yes VTE Pharmacological Prophylaxi: Yes Assessment/Plan Assessment/Plan A/P: Intractable Abdominal pain - likely 2/2 colitis vs chronic pancreatitis. Nausea and vomiting - likely enteritis/colitis related. Consult GI H/o gallstone pancreatitis s/p Whipple, h/o anastomotic ulcer/perf s/p repair - stable. will monitor Chronic diarrhea/pancreatic insufficiency - cont supplements with pancrealipase Diverticulosis, hemorrhoids - No lower GI bleeding H/o C Diff - will check for recurrence HTN - cont home meds HLD - cont home meds DARRION - will d/w if he is on home CPAP DM - sliding scale insulin BPH - cont meds Depression/anxiety - cont meds FEN - npo PPX - lovenox FULL CODE Dispo - inpatient Justifications for Admission Other Justification MAVERICK PATE MD Jul 20, 2020 08:36
[2020-07-20] MEDS ORDERED: ONDANSETRON PF 4 MG/2 ML VIAL. IV PRN (08:45)
[2020-07-20] MEDS ORDERED: ONDANSETRON ODT 4 MG TAB.RAPDIS. PO PRN (08:45)
[2020-07-20] MEDS: FINASTERIDE 5 MG TABLET. PO SCH (09:09)
[2020-07-20] MEDS: LOSARTAN POTASSIUM 50 MG TABLET. PO SCH (09:09)
[2020-07-20] MEDS: ASPIRIN CHEWABLE 81 MG TABLET. PO SCH (09:09)
--- NOTE | 2020-07-20 10:02 | NUR ---
SW following. Discussed with RN, pt from home with family, ambulatory, room air, NPO. RN advised no SW needs at this time. SW will continue to follow.
[2020-07-20] MEDS: HYDROcodone/APAP 5/325MG 1 TAB TABLET PO SCH ×3 (10:24→17:22)
[2020-07-20 10:32] LABS: BASO % 0 % (0-3); EOS # 0.1 x10^3/uL (0.0-0.7); EOS % 2 % (0-3); HEMATOCRIT 38.5 % (39.0-53.0); HEMOGLOBIN 12.6 g/dL (13.0-17.5); LYMPH # 1.4 x10^3/uL (1.0-4.8); LYMPH % 25 % (24-48); MEAN CORPUSCULAR HEMOGLOBIN 27 pg (25-35); MEAN CORPUSCULAR HGB CONC 33 g/dL (31-37); MEAN CORPUSCULAR VOLUME 83 fL (79-100); MONO # 0.5 x10^3/uL (0.0-1.1); MONO % 8 % (0-9); NEUT # 3.6 x10^3/uL (1.8-7.7); NEUT % 64 % (31-73); PLATELET COUNT 236 x10^3/uL (140-400); RED BLOOD COUNT 4.65 x10^6/uL (4.30-5.70); RED CELL DISTRIBUTION WIDTH 19.5 % (11.5-14.5); WHITE BLOOD COUNT 5.7 x10^3/uL (4.0-11.0)
[2020-07-20 11:00] VITALS: BP 146/84
[2020-07-20] MEDS ORDERED: DEXTROSE 50% 25 GM / 50ML DISP.SYRIN. IV PRN (12:45)
[2020-07-20] MEDS: HYDROmorphone 2 MG/ML VIAL IVP PRN ×3 (12:53→21:37)
[2020-07-20] MEDS: INSULIN LISPRO 300 UNITS/3 ML VIAL. SQ SCH ×2 (12:57→17:22)
--- NOTE | 2020-07-20 14:09 | PDOC2 ---
GI CONSULT Date of Service: DATE: 07/20/20 TIME: 13:57 Reason For Consult: chronic pancreatic insufficiency HPI: HPI: 55 y/o male admitted through ER. H/o gallstone pancreatitis s/p Whipple and anastomotic ulcer s/p repair of perforated ulcer w/ Dr. Grier ~2 months ago @ . The patient is not a great historian. H/o chronic oily stools on Zenpep. Also on ASA 81mg QD, Protonix QD, and Zofran PRN. Additional h/o C Diff and GERD. To ER w/ a couple weeks of diffuse abdominal discomfort and intermittent vomiting. Denies dysphagia, hematemesis, hematochezia, melena, change in diarrhea, constipation. Has lost a lot of weight. EGD and colonoscopy by Dr. Villela in 07/2019 showed oozing gastric ulcers (path c/w emy), Billroth II gastrojejunostomy, normal jejunum, lipid droplets in the colon, internal hemorrhoids, and normal random colon biopsies. PMH: PMH: NE, HTN, HLD, DARRION, DM, BPH, C Diff, depression/anxiety Whipple, cholecystectomy, repair of perforated ulcer FH: Family History: No pertinent hx Social History: Smoke: <1 pack per day ALCOHOL: other (heavy in the past, none since age 27) Drugs: Marijuana ROS: GEN: Denies fevers, chills, sweats HEENT: Denies blurred vision, sore throat CV: Denies chest pain RESP: Denies shortness of air, cough GI: Per HPI : Denies hematuria, dysuria ENDO: +weight loss NEURO: Denies confusion, dizziness MSK: Denies weakness, joint pain/swelling SKIN: Denies jaundice, pruritus Vitals: Vitals: Vital Signs Date Time Temp Pulse Resp B/P (MAP) Pulse Ox O2 Delivery O2 Flow Rate FiO2 07/20/20 12:53 Room Air 07/20/20 11:00 97.9 82 18 146/84 (104) 97 97.9 Labs: Labs: Laboratory Tests Test 07/19/20 15:50 07/19/20 22:19 07/19/20 23:49 07/20/20 06:35 White Blood Count 8.8 x10^3/uL (4.0-11.0) Red Blood Count 4.75 x10^6/uL (4.30-5.70) Hemoglobin 13.0 g/dL (13.0-17.5) Hematocrit 38.9 % (39.0-53.0) Mean Corpuscular Volume 82 fL (79-100) Mean Corpuscular Hemoglobin 27 pg (25-35) Mean Corpuscular Hemoglobin Concent 33 g/dL (31-37) Red Cell Distribution Width 19.4 % (11.5-14.5) Platelet Count 247 x10^3/uL (140-400) Neutrophils (%) (Auto) 77 % (31-73) Lymphocytes (%) (Auto) 14 % (24-48) Monocytes (%) (Auto) 7 % (0-9) Eosinophils (%) (Auto) 1 % (0-3) Basophils (%) (Auto) 1 % (0-3) Neutrophils # (Auto) 6.8 x10^3/uL (1.8-7.7) Lymphocytes # (Auto) 1.3 x10^3/uL (1.0-4.8) Monocytes # (Auto) 0.6 x10^3/uL (0.0-1.1) Eosinophils # (Auto) 0.0 x10^3/uL (0.0-0.7) Basophils # (Auto) 0.0 x10^3/uL (0.0-0.2) Sodium Level 137 mmol/L (136-145) 138 mmol/L (136-145) Potassium Level 3.5 mmol/L (3.5-5.1) 3.6 mmol/L (3.5-5.1) Chloride Level 101 mmol/L (98-107) 102 mmol/L (98-107) Carbon Dioxide Level 31 mmol/L (21-32) 29 mmol/L (21-32) Anion Gap 5 (6-14) 7 (6-14) Blood Urea Nitrogen 9 mg/dL (8-26) 7 mg/dL (8-26) Creatinine 0.5 mg/dL (0.7-1.3) 0.6 mg/dL (0.7-1.3) Estimated GFR (Cockcroft-Gault) 208.9 169.3 BUN/Creatinine Ratio 18 (6-20) Glucose Level 169 mg/dL (70-99) 219 mg/dL (70-99) Lactic Acid Level 1.0 mmol/L (0.4-2.0) 1.2 mmol/L (0.4-2.0) Calcium Level 8.9 mg/dL (8.5-10.1) 8.2 mg/dL (8.5-10.1) Total Bilirubin 0.5 mg/dL (0.2-1.0) Aspartate Amino Transf (AST/SGOT) 19 U/L (15-37) Alanine Aminotransferase (ALT/SGPT) 43 U/L (16-63) Alkaline Phosphatase 148 U/L (46-116) Total Protein 6.9 g/dL (6.4-8.2) Albumin 3.1 g/dL (3.4-5.0) Albumin/Globulin Ratio 0.8 (1.0-1.7) Lipase 17 U/L (73-393) Glucose (Fingerstick) 203 mg/dL (70-99) Test 07/20/20 08:09 07/20/20 10:05 07/20/20 11:18 Glucose (Fingerstick) 242 mg/dL (70-99) 228 mg/dL (70-99) White Blood Count 5.7 x10^3/uL (4.0-11.0) Red Blood Count 4.65 x10^6/uL (4.30-5.70) Hemoglobin 12.6 g/dL (13.0-17.5) Hematocrit 38.5 % (39.0-53.0) Mean Corpuscular Volume 83 fL (79-100) Mean Corpuscular Hemoglobin 27 pg (25-35) Mean Corpuscular Hemoglobin Concent 33 g/dL (31-37) Red Cell Distribution Width 19.5 % (11.5-14.5) Platelet Count 236 x10^3/uL (140-400) Neutrophils (%) (Auto) 64 % (31-73) Lymphocytes (%) (Auto) 25 % (24-48) Monocytes (%) (Auto) 8 % (0-9) Eosinophils (%) (Auto) 2 % (0-3) Basophils (%) (Auto) 0 % (0-3) Neutrophils # (Auto) 3.6 x10^3/uL (1.8-7.7) Lymphocytes # (Auto) 1.4 x10^3/uL (1.0-4.8) Monocytes # (Auto) 0.5 x10^3/uL (0.0-1.1) Eosinophils # (Auto) 0.1 x10^3/uL (0.0-0.7) Basophils # (Auto) 0.0 x10^3/uL (0.0-0.2) Allergies: Coded Allergies: aspirin (Verified Allergy, Intermediate, Hives, 07/30/19) IS ABLE TO TAKE LOW DOSE, 81MG, ONLY fentanyl (Verified Allergy, Intermediate, Hives, 07/30/19) ketorolac (Verified Allergy, Intermediate, Hives, 07/30/19) tramadol (Verified Allergy, Intermediate, Hives, 07/30/19) TOLERATES HYDROCODONE Medications: Current Medications Medications (Trade) Dose Ordered Sig/Rajiv Route PRN Reason Start Time Stop Time Status Last Admin Dose Admin Hydromorphone HCl (Dilaudid) 1 mg 1X ONCE IV 07/19/20 15:30 07/19/20 15:31 DC 07/19/20 15:45 Ondansetron HCl (Zofran) 4 mg 1X ONCE IVP 07/19/20 15:30 07/19/20 15:31 DC 07/19/20 15:44 Sodium Chloride 1,000 ml @ 1,000 mls/hr 1X ONCE IV 07/19/20 15:30 07/19/20 16:29 DC 07/19/20 15:47 Iohexol (Omnipaque 300 Mg/ml) 75 ml 1X ONCE IV 07/19/20 16:45 07/19/20 16:46 DC 07/19/20 17:15 Hydromorphone HCl (Dilaudid) 1 mg 1X ONCE IVP 07/19/20 18:45 07/19/20 18:46 DC 07/19/20 18:42 Hydromorphone HCl (Dilaudid) 1 mg 1X ONCE IV 07/19/20 20:45 07/19/20 20:46 DC 07/19/20 20:42 Morphine Sulfate (Morphine Sulfate) 4 mg PRN Q2HR PRN IV PAIN 07/19/20 21:00 07/20/20 12:34 DC 07/20/20 09:10 Zolpidem Tartrate (Ambien) 5 mg PRN QHS PRN PO INSOMNIA 07/19/20 23:00 07/19/20 23:18 Nicotine Polacrilex (Nicorette Gum) 1 each PRN Q1HR PRN BC SMOKING CESSATION 07/19/20 23:00 07/20/20 04:37 Nicotine (Nicoderm Cq 21mg) 1 patch PRN DAILY PRN TD SMOKING CESSATION 07/19/20 23:00 07/19/20 23:19 Ondansetron HCl (Zofran) 4 mg PRN Q4HRS PRN IV NAUSEA/VOMITING 07/20/20 08:45 07/20/20 09:18 Aspirin (Aspirin Chewable) 81 mg DAILY PO 07/20/20 09:00 07/20/20 09:09 Finasteride (Proscar) 5 mg DAILY PO 07/20/20 09:00 07/20/20 09:09 Acetaminophen/ Hydrocodone Bitart (Lortab 5/325) 1 tab Q6HRS PO 07/20/20 08:40 07/20/20 10:24 Losartan Potassium (Cozaar) 50 mg DAILY PO 07/20/20 09:00 07/20/20 09:09 Hydromorphone HCl (Dilaudid) 1 mg PRN Q4HRS PRN IVP PAIN 07/20/20 12:45 07/20/20 12:53 Insulin Human Lispro (HumaLOG) 0-9 UNITS TIDWMEALS SQ 07/20/20 13:00 07/20/20 12:57 Imaging: Imaging: CT A/P IMPRESSION: Wall thickening involving the ascending colon and distal loops of small bowel. Nonspecific in etiology may represent enterocolitis or be postoperative in etiology. No free air or fluid fluid is identified. Recommend correlation with short-term follow-up imaging to reassess. PE: GEN: NAD HEENT: Atraumatic, PERRL LUNGS: CTAB HEART: RRR ABD: quiet BS, soft, diffusely uncomfortable - worst upper abd EXTREMITY: No edema SKIN: abd scars NEURO/PSYCH: A & O 3 A/P: A/P: Abd pain, vomiting H/o gallstone pancreatitis s/p Whipple, h/o anastomotic ulcer/perf s/p repair CRC screen - UTD Chronic diarrhea/pancreatic insufficiency Diverticulosis, hemorrhoids H/o C Diff -- Seen w/ Dr. Villela. Try clears, start atbx, observe. Continue PPI and pancreatic enzymes. Could check C Diff w/ h/o same. OSCAR LILLY Jul 20, 2020 14:09
[2020-07-20] MEDS ORDERED: ENOXAPARIN 40 MG/0.4 ML SYRINGE. SQ SCH (14:30)
[2020-07-20 15:00] VITALS: BP 156/90
[2020-07-20] MEDS: CIPROFLOXACIN 200MG PREMIX 100 ML IV SCH ×2 (15:42→21:47)
[2020-07-20] MEDS: LIPASE/PROTEAS/AMYLAS 10/32/42 CAPSULE.DR. PO SCH (17:16)
[2020-07-20 19:00] VITALS: BP 142/82
[2020-07-20] MEDS ORDERED: OXYC1TAB22 PO (19:42)
[2020-07-20] MEDS ORDERED: INSULIN GLARGINE SYRINGE. SQ SCH (21:00)
[2020-07-20] MEDS: NICOTINE 21MG PATCH. TD PRN (21:37)
[2020-07-20] MEDS: ZOLPIDEM 5 MG TABLET. PO PRN (21:37)
[2020-07-20] MEDS: oxyCODONE/APAP 10/325 1 TAB TABLET PO PRN (22:43)
[2020-07-20 23:00] VITALS: BP 164/90
[2020-07-21 03:01] VITALS: BP 160/96
[2020-07-21] MEDS: oxyCODONE/APAP 10/325 1 TAB TABLET PO PRN ×3 (04:00→11:19)
[2020-07-21 04:35] LABS: HEMATOCRIT 37.7 % (39.0-53.0); HEMOGLOBIN 12.3 g/dL (13.0-17.5); RED BLOOD COUNT 4.54 x10^6/uL (4.30-5.70); RED CELL DISTRIBUTION WIDTH 19.3 % (11.5-14.5); WHITE BLOOD COUNT 7.7 x10^3/uL (4.0-11.0)
[2020-07-21 04:52] LABS: CALCIUM 7.7 mg/dL (8.5-10.1); CREATININE 0.7 mg/dL (0.7-1.3); GFR 141.7
[2020-07-21 07:00] VITALS: BP 156/94
[2020-07-21] MEDS ORDERED: PANTOPRAZOLE IV PUSH 40 MG VIAL. IVP SCH (07:30)
[2020-07-21] MEDS: INSULIN LISPRO 300 UNITS/3 ML VIAL. SQ SCH (08:00)
[2020-07-21] MEDS: LIPASE/PROTEAS/AMYLAS 10/32/42 CAPSULE.DR. PO SCH (08:00)
--- NOTE | 2020-07-21 08:21 | PDOC ---
[employer] PROGRESS NOTE Date of Service DOS: DATE: 07/21/20 TIME: 08:19 Chief Complaint Chief Complaint A/P: Intractable Abdominal pain - likely 2/2 colitis vs chronic pancreatitis vs outlet obstruction vs malignancy vs ischemic colitis unlikely vs dysmotility likely related to chronic opioid use Nausea and vomiting - likely enteritis/colitis related. Consult GI H/o gallstone pancreatitis s/p Whipple, h/o anastomotic ulcer/perf s/p repair - stable. will monitor Chronic diarrhea/pancreatic insufficiency - cont supplements with pancrealipase Diverticulosis, hemorrhoids - No lower GI bleeding H/o C Diff - will check for recurrence HTN - cont home meds HLD - cont home meds DARRION - will d/w if he is on home CPAP DM - sliding scale insulin BPH - cont meds Depression/anxiety - cont meds FEN - npo PPX - lovenox FULL CODE Dispo - inpatient History of Present Illness History of Present Illness Mr Calitxo is a 55yo M w/ PMHx Depression, Diabetes-Type II, Hypertension, HLD, c- difficile, BPH, gallstone pancreatitis s/p Whipple and anastomotic ulcer s/p repair of perforated ulcer w/ Dr. Grier ~2 months ago at [facility] who presents to the ED with progressively worsening abdominal pain for the past 6 days. Patient states that he has had intractable diffuse abdominal pain over the past 6 days. He notes it feels similar to when he had a bowel perforation. He states he has been seen in multiple emergency department since then and diagnosed with colitis. He states he has been taking amoxicillin with minimal relief. He notes that he is having normal bowel movements. He does note multiple episodes of nonbloody nonbilious emesis since 07/18 daily and his notes that the vomiting appears feculent in nature. Denies any objective fevers. He has a remote alcohol history and stopped over a decade ago. Endorses tobacco use and marijuana use. Denies urinary symptoms including dysuria or hematuria. Does note one episode of syncope after vomiting. Denies headache. States the pain is sharp, nonradiating, and constant. No alleviating factors. No other complaints. ED physician d/w the patient's surgeon Dr. Grier at [facility]. He states that he did have mesh repair for a potentially leaking peptic ulcer in his stomach [address] abd with Wall thickening involving the ascending colon and distal loops of small bowel. Nonspecific in etiology may represent enterocolitis or be postoperative in etiology. Labs with NA 138, K3.6, BUN 7, CR 0.6, glucose 219, WBC 8.8, Hb 13, platelets 247, LFTs within normal limits with exception of slightly elevated alkaline phosphatase in the 140s. Lipase normal. Admitted for further treatment and pain control, unable to take p.o. After trialing clear liquid diet last night he actually got an entire tray. Improved significantly with IV Cipro for his colitis. Discussed with GI as his labs improved and his pain is resolved will discharge home on 2 more additional days of Cipro and Flagyl. Vitals/I&O Vitals/I&O: Vital Signs Date Time Temp Pulse Resp B/P (MAP) Pulse Ox O2 Delivery O2 Flow Rate FiO2 07/21/20 06:01 18 100 Room Air 07/21/20 03:01 98.8 83 160/96 (117) 98.8 I & O 07/20/20 07/20/20 07/21/20 15:00 23:00 07:00 Intake Total 480 ml Output Total 800 ml Balance 480 ml -800 ml Physical Exam General: Alert, Oriented X3, Cooperative, mild distress Abdomen: Normal bowel sounds, Soft, No hepatosplenomegaly, No masses, Other (Epigastric pain) Extremities: No clubbing, No cyanosis, No edema, Normal pulses, No tenderness/swelling Skin: No rashes, No breakdown, No significant lesion Labs Labs: Laboratory Tests Test 07/20/20 10:05 07/20/20 11:18 07/20/20 16:49 07/20/20 20:54 White Blood Count 5.7 x10^3/uL (4.0-11.0) Red Blood Count 4.65 x10^6/uL (4.30-5.70) Hemoglobin 12.6 g/dL (13.0-17.5) Hematocrit 38.5 % (39.0-53.0) Mean Corpuscular Volume 83 fL (79-100) Mean Corpuscular Hemoglobin 27 pg (25-35) Mean Corpuscular Hemoglobin Concent 33 g/dL (31-37) Red Cell Distribution Width 19.5 % (11.5-14.5) Platelet Count 236 x10^3/uL (140-400) Neutrophils (%) (Auto) 64 % (31-73) Lymphocytes (%) (Auto) 25 % (24-48) Monocytes (%) (Auto) 8 % (0-9) Eosinophils (%) (Auto) 2 % (0-3) Basophils (%) (Auto) 0 % (0-3) Neutrophils # (Auto) 3.6 x10^3/uL (1.8-7.7) Lymphocytes # (Auto) 1.4 x10^3/uL (1.0-4.8) Monocytes # (Auto) 0.5 x10^3/uL (0.0-1.1) Eosinophils # (Auto) 0.1 x10^3/uL (0.0-0.7) Basophils # (Auto) 0.0 x10^3/uL (0.0-0.2) C-Reactive Protein, Quantitative < 0.5 mg/L (0-3.3) Procalcitonin < 0.10 ng/mL (0.00-0.10) Glucose (Fingerstick) 228 mg/dL (70-99) 213 mg/dL (70-99) 139 mg/dL (70-99) Test 07/21/20 04:00 07/21/20 07:48 White Blood Count 7.7 x10^3/uL (4.0-11.0) Red Blood Count 4.54 x10^6/uL (4.30-5.70) Hemoglobin 12.3 g/dL (13.0-17.5) Hematocrit 37.7 % (39.0-53.0) Mean Corpuscular Volume 83 fL (79-100) Mean Corpuscular Hemoglobin 27 pg (25-35) Mean Corpuscular Hemoglobin Concent 33 g/dL (31-37) Red Cell Distribution Width 19.3 % (11.5-14.5) Platelet Count 238 x10^3/uL (140-400) Sodium Level 137 mmol/L (136-145) Potassium Level 4.0 mmol/L (3.5-5.1) Chloride Level 103 mmol/L (98-107) Carbon Dioxide Level 28 mmol/L (21-32) Anion Gap 6 (6-14) Blood Urea Nitrogen 7 mg/dL (8-26) Creatinine 0.7 mg/dL (0.7-1.3) Estimated GFR (Cockcroft-Gault) 141.7 Glucose Level 320 mg/dL (70-99) Calcium Level 7.7 mg/dL (8.5-10.1) Glucose (Fingerstick) 308 mg/dL (70-99) Assessment and Plan Assessmemt and Plan Problems Medical Problems: (1) Intractable abdominal pain Status: Acute Comment Review of Relevant I have reviewed the following items gricelda (where applicable) has been applied. Medications: Current Medications Medications (Trade) Dose Ordered Sig/Rajiv Route PRN Reason Start Time Stop Time Status Last Admin Dose Admin Ondansetron HCl (Zofran) 4 mg PRN Q4HRS PRN IV NAUSEA/VOMITING 07/20/20 08:45 07/20/20 09:18 Aspirin (Aspirin Chewable) 81 mg DAILY PO 07/20/20 09:00 07/20/20 09:09 Finasteride (Proscar) 5 mg DAILY PO 07/20/20 09:00 07/20/20 09:09 Acetaminophen/ Hydrocodone Bitart (Lortab 5/325) 1 tab Q6HRS PO 07/20/20 08:40 07/20/20 19:45 DC 07/20/20 10:24 Losartan Potassium (Cozaar) 50 mg DAILY PO 07/20/20 09:00 07/20/20 09:09 Hydromorphone HCl (Dilaudid) 1 mg PRN Q4HRS PRN IVP PAIN 07/20/20 12:45 07/20/20 21:37 Amylase/Lipase/ Protease (Zenpep 10,000) 2 cap TIDWMEALS PO 07/20/20 17:00 07/20/20 17:16 Insulin Glargine (Lantus Syringe) 23 unit QHS SQ 07/20/20 21:00 07/20/20 21:46 Insulin Human Lispro (HumaLOG) 0-9 UNITS TIDWMEALS SQ 07/20/20 13:00 07/20/20 17:22 Ciprofloxacin/ Dextrose 100 ml @ 100 mls/hr Q12HR IV 07/20/20 14:30 07/20/20 21:47 Pantoprazole Sodium (PROTONIX VIAL for IV PUSH) 40 mg DAILYAC IVP 07/21/20 07:30 07/21/20 05:02 Enoxaparin Sodium (Lovenox 40mg Syringe) 40 mg Q24H SQ 07/20/20 14:30 07/20/20 15:41 Oxycodone/ Acetaminophen (Percocet 10/325) 1 tab PRN Q6HRS PRN PO PAIN 07/20/20 20:00 07/21/20 05:01 Justifications for Admission Other Justification MAVERICK PATE MD Jul 21, 2020 08:21
[2020-07-21] MEDS ORDERED: INSULIN LISPRO 300 UNITS/3 ML VIAL. SQ SCH (09:15)
--- NOTE | 2020-07-21 09:41 | NUR ---
SW following. Discussed with RN, pt advanced to clear liquid diet - tolerating well. RN advised no SW needs, anticipates possible discharge home today. SW will continue to follow.
[2020-07-21] MEDS ORDERED: CIPR100T3 PO (09:47)
[2020-07-21] MEDS ORDERED: METR250T PO (09:47)
[2020-07-21 09:53] VITALS: BP 156/94
[2020-07-21] MEDS: LOSARTAN POTASSIUM 50 MG TABLET. PO SCH (09:53)
[2020-07-21] MEDS: FINASTERIDE 5 MG TABLET. PO SCH (09:53)
[2020-07-21] MEDS: ASPIRIN CHEWABLE 81 MG TABLET. PO SCH (09:53)
--- NOTE | 2020-07-21 10:09 | PDOC ---
Date of Service: DATE: 07/21/20 TIME: 10:08 Subjective: Subjective: Better - no n/v, less pain, tolerating diet, stool more firm. Objective: Objective: D/w nurse - ate a boxed lunch in the middle of the night. Vital Signs: Vital Signs Date Time Temp Pulse Resp B/P (MAP) Pulse Ox O2 Delivery O2 Flow Rate FiO2 07/21/20 09:53 90 156/94 07/21/20 07:00 98.9 18 99 98.9 07/21/20 06:01 Room Air Labs: Laboratory Tests Test 07/20/20 11:18 07/20/20 16:49 07/20/20 20:54 07/21/20 04:00 Glucose (Fingerstick) 228 mg/dL 213 mg/dL 139 mg/dL White Blood Count 7.7 x10^3/uL Red Blood Count 4.54 x10^6/uL Hemoglobin 12.3 g/dL Hematocrit 37.7 % Mean Corpuscular Volume 83 fL Mean Corpuscular Hemoglobin 27 pg Mean Corpuscular Hemoglobin Concent 33 g/dL Red Cell Distribution Width 19.3 % Platelet Count 238 x10^3/uL Sodium Level 137 mmol/L Potassium Level 4.0 mmol/L Chloride Level 103 mmol/L Carbon Dioxide Level 28 mmol/L Anion Gap 6 Blood Urea Nitrogen 7 mg/dL Creatinine 0.7 mg/dL Estimated GFR (Cockcroft-Gault) 141.7 Glucose Level 320 mg/dL Calcium Level 7.7 mg/dL Test 07/21/20 07:48 Glucose (Fingerstick) 308 mg/dL PE: GEN: NAD LUNGS: CTAB HEART: RRR ABD: soft, less tender NEURO/PSYCH: A & O 3 A/P: Abd pain, vomiting - resolved H/o gallstone pancreatitis s/p Whipple, h/o anastomotic ulcer/perf s/p repair Chronic diarrhea/pancreatic insufficiency DM -- DC per primary. Follow-up w/ surgeon at . Continue PPI and pancreatic enzymes. ?need for atbx on DC - will review w/ Dr. Villela. Justicifation of Admission Dx: Justifications for Admission: Justification of Admission Dx: Yes OSCAR LILLY Jul 21, 2020 10:09
--- NOTE | 2020-07-21 11:30 | NUR ---
Discharge Note: Patient was discharged home with self care. Patients IV was discontinued without any complication per RN. Patients at the bedside at the time of discharge education. Patient was given discharge summary/instructions, follow-ups, and educational material. Patients prescriptions were sent to patient preferred pharmacy. Patient was taken down to the main entrance via wheelchair accompanied by HELEN Egan, with all personal belongings where his was waiting for him to take him home.
--- NOTE | 2020-07-21 12:17 | PDOC3 ---
Discharge Summary Visit Information Date of Admission: Jul 19, 2020 Date of Discharge: Jul 21, 2020 Admitting Diagnosis: Intractable abdominal pain Final Diagnosis Problems Medical Problems: (1) Intractable abdominal pain Status: Acute Brief Hospital Course Allergies Allergies Coded Allergies Type Severity Reaction Last Updated Verified aspirin Allergy Intermediate Hives 07/30/19 Yes fentanyl Allergy Intermediate Hives 07/30/19 Yes ketorolac Allergy Intermediate Hives 07/30/19 Yes tramadol Allergy Intermediate Hives 07/30/19 Yes Vital Signs Vital Signs Date Time Temp Pulse Resp B/P (MAP) Pulse Ox O2 Delivery O2 Flow Rate FiO2 07/21/20 11:19 Room Air 07/21/20 09:53 90 156/94 07/21/20 07:00 98.9 18 99 98.9 Lab Results Laboratory Tests Test 07/19/20 15:50 07/19/20 22:19 07/19/20 23:49 07/20/20 06:35 White Blood Count 8.8 x10^3/uL (4.0-11.0) Red Blood Count 4.75 x10^6/uL (4.30-5.70) Hemoglobin 13.0 g/dL (13.0-17.5) Hematocrit 38.9 % (39.0-53.0) Mean Corpuscular Volume 82 fL (79-100) Mean Corpuscular Hemoglobin 27 pg (25-35) Mean Corpuscular Hemoglobin Concent 33 g/dL (31-37) Red Cell Distribution Width 19.4 % (11.5-14.5) Platelet Count 247 x10^3/uL (140-400) Neutrophils (%) (Auto) 77 % (31-73) Lymphocytes (%) (Auto) 14 % (24-48) Monocytes (%) (Auto) 7 % (0-9) Eosinophils (%) (Auto) 1 % (0-3) Basophils (%) (Auto) 1 % (0-3) Neutrophils # (Auto) 6.8 x10^3/uL (1.8-7.7) Lymphocytes # (Auto) 1.3 x10^3/uL (1.0-4.8) Monocytes # (Auto) 0.6 x10^3/uL (0.0-1.1) Eosinophils # (Auto) 0.0 x10^3/uL (0.0-0.7) Basophils # (Auto) 0.0 x10^3/uL (0.0-0.2) Sodium Level 137 mmol/L (136-145) 138 mmol/L (136-145) Potassium Level 3.5 mmol/L (3.5-5.1) 3.6 mmol/L (3.5-5.1) Chloride Level 101 mmol/L (98-107) 102 mmol/L (98-107) Carbon Dioxide Level 31 mmol/L (21-32) 29 mmol/L (21-32) Anion Gap 5 (6-14) 7 (6-14) Blood Urea Nitrogen 9 mg/dL (8-26) 7 mg/dL (8-26) Creatinine 0.5 mg/dL (0.7-1.3) 0.6 mg/dL (0.7-1.3) Estimated GFR (Cockcroft-Gault) 208.9 169.3 BUN/Creatinine Ratio 18 (6-20) Glucose Level 169 mg/dL (70-99) 219 mg/dL (70-99) Lactic Acid Level 1.0 mmol/L (0.4-2.0) 1.2 mmol/L (0.4-2.0) Calcium Level 8.9 mg/dL (8.5-10.1) 8.2 mg/dL (8.5-10.1) Total Bilirubin 0.5 mg/dL (0.2-1.0) Aspartate Amino Transf (AST/SGOT) 19 U/L (15-37) Alanine Aminotransferase (ALT/SGPT) 43 U/L (16-63) Alkaline Phosphatase 148 U/L (46-116) Total Protein 6.9 g/dL (6.4-8.2) Albumin 3.1 g/dL (3.4-5.0) Albumin/Globulin Ratio 0.8 (1.0-1.7) Lipase 17 U/L (73-393) Glucose (Fingerstick) 203 mg/dL (70-99) Test 07/20/20 08:09 07/20/20 10:05 07/20/20 11:18 07/20/20 16:49 Glucose (Fingerstick) 242 mg/dL (70-99) 228 mg/dL (70-99) 213 mg/dL (70-99) White Blood Count 5.7 x10^3/uL (4.0-11.0) Red Blood Count 4.65 x10^6/uL (4.30-5.70) Hemoglobin 12.6 g/dL (13.0-17.5) Hematocrit 38.5 % (39.0-53.0) Mean Corpuscular Volume 83 fL (79-100) Mean Corpuscular Hemoglobin 27 pg (25-35) Mean Corpuscular Hemoglobin Concent 33 g/dL (31-37) Red Cell Distribution Width 19.5 % (11.5-14.5) Platelet Count 236 x10^3/uL (140-400) Neutrophils (%) (Auto) 64 % (31-73) Lymphocytes (%) (Auto) 25 % (24-48) Monocytes (%) (Auto) 8 % (0-9) Eosinophils (%) (Auto) 2 % (0-3) Basophils (%) (Auto) 0 % (0-3) Neutrophils # (Auto) 3.6 x10^3/uL (1.8-7.7) Lymphocytes # (Auto) 1.4 x10^3/uL (1.0-4.8) Monocytes # (Auto) 0.5 x10^3/uL (0.0-1.1) Eosinophils # (Auto) 0.1 x10^3/uL (0.0-0.7) Basophils # (Auto) 0.0 x10^3/uL (0.0-0.2) C-Reactive Protein, Quantitative < 0.5 mg/L (0-3.3) Procalcitonin < 0.10 ng/mL (0.00-0.10) Test 07/20/20 20:54 07/21/20 04:00 07/21/20 07:48 Glucose (Fingerstick) 139 mg/dL (70-99) 308 mg/dL (70-99) White Blood Count 7.7 x10^3/uL (4.0-11.0) Red Blood Count 4.54 x10^6/uL (4.30-5.70) Hemoglobin 12.3 g/dL (13.0-17.5) Hematocrit 37.7 % (39.0-53.0) Mean Corpuscular Volume 83 fL (79-100) Mean Corpuscular Hemoglobin 27 pg (25-35) Mean Corpuscular Hemoglobin Concent 33 g/dL (31-37) Red Cell Distribution Width 19.3 % (11.5-14.5) Platelet Count 238 x10^3/uL (140-400) Sodium Level 137 mmol/L (136-145) Potassium Level 4.0 mmol/L (3.5-5.1) Chloride Level 103 mmol/L (98-107) Carbon Dioxide Level 28 mmol/L (21-32) Anion Gap 6 (6-14) Blood Urea Nitrogen 7 mg/dL (8-26) Creatinine 0.7 mg/dL (0.7-1.3) Estimated GFR (Cockcroft-Gault) 141.7 Glucose Level 320 mg/dL (70-99) Calcium Level 7.7 mg/dL (8.5-10.1) Laboratory Tests Test 07/20/20 16:49 07/20/20 20:54 07/21/20 04:00 07/21/20 07:48 Glucose (Fingerstick) 213 mg/dL (70-99) 139 mg/dL (70-99) 308 mg/dL (70-99) White Blood Count 7.7 x10^3/uL (4.0-11.0) Red Blood Count 4.54 x10^6/uL (4.30-5.70) Hemoglobin 12.3 g/dL (13.0-17.5) Hematocrit 37.7 % (39.0-53.0) Mean Corpuscular Volume 83 fL (79-100) Mean Corpuscular Hemoglobin 27 pg (25-35) Mean Corpuscular Hemoglobin Concent 33 g/dL (31-37) Red Cell Distribution Width 19.3 % (11.5-14.5) Platelet Count 238 x10^3/uL (140-400) Sodium Level 137 mmol/L (136-145) Potassium Level 4.0 mmol/L (3.5-5.1) Chloride Level 103 mmol/L (98-107) Carbon Dioxide Level 28 mmol/L (21-32) Anion Gap 6 (6-14) Blood Urea Nitrogen 7 mg/dL (8-26) Creatinine 0.7 mg/dL (0.7-1.3) Estimated GFR (Cockcroft-Gault) 141.7 Glucose Level 320 mg/dL (70-99) Calcium Level 7.7 mg/dL (8.5-10.1) Brief Hospital Course Mr Calixto is a 55yo M w/ PMHx Depression, Diabetes-Type II, Hypertension, HLD, c- difficile, BPH, gallstone pancreatitis s/p Whipple and anastomotic ulcer s/p repair of perforated ulcer w/ Dr. Grier ~2 months ago at [facility] who presents to the ED with progressively worsening abdominal pain for the past 6 days. Patient states that he has had intractable diffuse abdominal pain over the past 6 days. He notes it feels similar to when he had a bowel perforation. He states he has been seen in multiple emergency department since then and diagnosed with colitis. He states he has been taking amoxicillin with minimal relief. He notes that he is having normal bowel movements. He does note multiple episodes of nonbloody nonbilious emesis since 07/18 daily and his notes that the vomiting appears feculent in nature. Denies any objective fevers. He has a remote alcohol history and stopped over a decade ago. Endorses tobacco use and marijuana use. Denies urinary symptoms including dysuria or hematuria. Does note one episode of syncope after vomiting. Denies headache. States the pain is sharp, nonradiating, and constant. No alleviating factors. No other complaints. ED physician d/w the patient's surgeon Dr. Grier at [facility]. He states that he did have mesh repair for a potentially leaking peptic ulcer in his stomach [address] abd with Wall thickening involving the ascending colon and distal loops of small bowel. Nonspecific in etiology may represent enterocolitis or be postoperative in etiology. Labs with NA 138, K3.6, BUN 7, CR 0.6, glucose 219, WBC 8.8, Hb 13, platelets 247, LFTs within normal limits with exception of slightly elevated alkaline phosphatase in the 140s. Lipase normal. Admitted for further treatment and pain control, unable to take p.o. After trialing clear liquid diet last night he actually got an entire tray. Improved significantly with IV Cipro for his colitis. Discussed with GI as his labs improved and his pain is resolved will discharge home on 2 more additional days of Cipro and Flagyl. Consults: GI Problem list: Intractable Abdominal pain - likely 2/2 colitis vs chronic pancreatitis vs outlet obstruction vs malignancy vs ischemic colitis unlikely vs dysmotility likely related to chronic opioid use Nausea and vomiting - likely enteritis/colitis related. Consult GI H/o gallstone pancreatitis s/p Whipple, h/o anastomotic ulcer/perf s/p repair - stable. will monitor Chronic diarrhea/pancreatic insufficiency - cont supplements with pancrealipase Diverticulosis, hemorrhoids - No lower GI bleeding H/o C Diff - will check for recurrence HTN - cont home meds HLD - cont home meds DARRION - will d/w if he is on home CPAP DM - sliding scale insulin BPH - cont meds Depression/anxiety - cont meds Greater than 30 minutes spent on d/c home Discharge Information Condition at Discharge: Improved Follow Up: Weeks (1) Disposition/Orders: D/C to Home Scheduled Aspirin (Aspirin) 81 Mg Tab.chew, 1 TAB PO DAILY for PREVENTATIVE, #30 Ref 3 (Reported) Entered as Reported by: Jessica Ibrahim on 02/23/191249 Last Action: Continued on 07/20/20836 by MAVERICK PATE MD Ciprofloxacin Hcl (Ciprofloxacin Hcl) 100 Mg Tablet, 1 TAB PO BID for Colitis for 2 Days, #4 Ref 0 Prescribed by: MAVERICK PATE MD on 07/21/20 0947 Finasteride (Finasteride) 5 Mg Tablet, 1 TAB PO DAILY for BPH, #30 Ref 11 (Reported) Entered as Reported by: Jessica Ibrahim on 02/23/19 1250 Last Action: Continued on 07/20/20836 by MAVERICK PATE MD Hydrocodone/Apap 5-325 (Montchanin 5-325 Tablet) 1 Each Tablet, 1 TAB PO Q6HRS, #8 Prescribed by: Day Cid APRN on 01/07/19 1625 Last Action: Continued on 07/20/20836 by MAVERICK PATE MD Insulin Degludec (Tresiba) 100 Unit/1 Ml Vial, 30 UNIT SQ HS for iddm, (Reported) Entered as Reported by: NAI CHRISTIAN on 07/30/19 0848 Insulin Lispro (Humalog) 100 Unit/1 Ml Cartridge, 100 UNIT SQ ac for iddm, (Reported) Entered as Reported by: NAI CHRISTIAN on 07/30/19 0848 Lipase/Protease/Amylase (Zenpenawaf Morton 20,000 Units Capsule) 1 Each Capsule.dr, 1 EACH PO TID for PANCEREAS, (Reported) Entered as Reported by: Jessica Ibrahim on 02/23/19 125 Last Action: Converted on 07/20/20 1236 by MAVERICK PATE MD Losartan Potassium (Losartan Potassium) 50 Mg Tablet, 50 MG PO DAILY for HYPERTENSION, (Reported) Entered as Reported by: Jessica Ibrahim on 02/23/19 125 Last Action: Continued on 07/20/20 0837 by MAVERICK PATE MD Metronidazole (Flagyl) 250 Mg Tablet, 1 TAB PO BID for Coitis for 2 Days, #4 Prescribed by: MAVERICK PATE MD on 07/21/20 0947 Omeprazole (Omeprazole) 20 Mg Capsule.dr, 1 CAP PO DAILY for GERD, #30 Ref 5 (Reported) Entered as Reported by: Jessica Ibrahim on 02/23/19 1250 Ondansetron (Ondansetron Odt) 4 Mg Tab.rapdis, 1 TAB PO PRN Q6-8HRS for 4 Days, #16 Ref 0 Prescribed by: CRYSTAL GUERRERO APRN on 06/11/19 1750 Last Action: Continued on 07/20/20836 by MAVERICK PATE MD Ondansetron Hcl (Zofran) 4 Mg Tablet, 1 TAB PO Q6HRS, #20 Prescribed by: Day Cid APRN on 01/07/19 1625 Pregabalin (Lyrica) 300 Mg Capsule, 1 CAP PO BID for PAIN, #60 Ref 2 (Reported) Entered as Reported by: Jessica Ibrahim on 02/23/19 125 Scheduled PRN Oxycodone/Apap 10-325 (Percocet 10-325 Mg Tablet ) 1 Each Tablet, 1 TAB PO PRN Q6HRS PRN for PAIN, Ref 0 (Reported) Entered as Reported by: GORDON ARREAGA on 07/20/201941 Last Action: Continued on 07/20/201955 by GORDON ARREAGA Zolpidem Tartrate (Ambien) 10 Mg Tablet, 10 MG PO PRN QHS PRN for INSOMNIA, Ref 0 (Reported) Entered as Reported by: Jessica Ibrahim on 02/23/19 1250 Discontinued Medications Tamsulosin Hcl (Flomax) 0.4 Mg Cap.er.24h, 0.4 MG PO DAILY for prostate, (Reported) Entered as Reported by: WILBUR FOX on 07/30/19 0803 Last Action: Discontinued on 07/19/20 2245 by GORDON ARREAGA Justicifation of Admission Dx: Justifications for Admission: Justification of Admission Dx: Yes MAVERICK PATE MD Jul 21, 2020 12:17
== END 2020-07-21 11:56 | disposition home or self-care (01) | DRG 394 ==
LOC: ER 14:19 → 5 NORTH 21:00
PROVIDERS: ADMIT Internal Medicine; ATTEND Internal Medicine
DX: K55.9 Vascular disorder of intestine, unspecified (principal); K86.1 Other chronic pancreatitis; K52.9 Noninfective gastroenteritis and colitis, unspecified; E11.9 Type 2 diabetes mellitus without complications; E78.5 Hyperlipidemia, unspecified; F12.90 Cannabis use, unspecified, uncomplicated; F17.210 Nicotine dependence, cigarettes, uncomplicated; F32.9 Major depressive disorder, single episode, unspecified; F41.9 Anxiety disorder, unspecified; G47.33 Obstructive sleep apnea (adult) (pediatric); I10 Essential (primary) hypertension; K57.90 Diverticulosis of intestine, part unspecified, without perforation or abscess without bleeding; K64.8 Other hemorrhoids; K86.89 Other specified diseases of pancreas; N40.0 Benign prostatic hyperplasia without lower urinary tract symptoms; Z82.49 Family history of ischemic heart disease and other diseases of the circulatory system; Z87.11 Personal history of peptic ulcer disease; Z90.411 Acquired partial absence of pancreas; K21.9 Gastro-esophageal reflux disease without esophagitis; Z88.8 Allergy status to other drugs, medicaments and biological substances
CPT/HCPCS: 36415; 74177; 80048; 80053; 82962; 83605; 83690; 84145; 85025; 85027; 86140; 96361; 96374; 96375; 96376; C9113; J0744; J1170; J1650; J1815; J2270; J2405; J7030; Q9967; 99285-25; G0378

== ENCOUNTER 2020-10-10 16:02 | Emergency (ER) | payer MEDICARE, MEDICAID ==
[~2020-10-10] VITALS: Ht 165.1 cm; Wt 70.0 kg
[~2020-10-10 16:02] MED LIST changes: +CIPR100T3 PO; +METR250T PO; +OXYC1TAB22 PO
[2020-10-10] MEDS ORDERED: IV NORMAL SALINE 1000ML BAG 1,000 ML IV SCH (16:30)
--- NOTE | 2020-10-10 16:30 | PHYS DOC ---
Past Medical History Past Medical History: Depression, Diabetes-Type II, Hypertension, Pancreatitis, Other Additional Past Medical Histor: C-DIFF (BALJEET BROWN DO) Past Surgical History: Other Additional Past Surgical Histo: PANCREASE,ABD SURGERY BOWEL TEAR (BALJEET BROWN DO) Smoking Status: Current Every Day Smoker Alcohol Use: None Drug Use: None (BALJEET BROWN DO) General Adult EDM: Chief Complaint: ABDOMINAL PAIN HPI: HPI: Patient is a 55 year old male w/ PMHx Depression, Diabetes-Type II, Hypertension, HLD, c- difficile, BPH, gallstone pancreatitis s/p Whipple and anastomotic ulcer s/p repair of perforated ulcer w/ Dr. Grier ~3 months ago at [facility] who presents to the ED with progressively worsening abdominal pain for the past 7 days. Patient states that he has had intractable diffuse abdominal pain over the past 7 days. He states he has been seen in multiple emergency department since his operation and was diagnosed with colitis. Patient also complained of diarrhea with nausea and vomiting. Patient feels weak and dehydrated. Patient denies any cough or fever. (BALJEET BROWN DO) Review of Systems: Review of Systems: Constitutional: Denies fever or chills. [] Eyes: Denies change in visual acuity. [] HENT: Denies nasal congestion or sore throat. [] Respiratory: Denies cough or shortness of breath. [] Cardiovascular: Denies chest pain or edema. [] GI: Positive for abdominal pain, nausea vomiting, diarrhea : Denies dysuria. [] Musculoskeletal: Denies back pain or joint pain. [] Integument: Denies rash. [] Neurologic: Denies headache, focal weakness or sensory changes. [] Endocrine: Denies polyuria or polydipsia. [] Lymphatic: Denies swollen glands. [] Psychiatric: Denies depression or anxiety. [] (BALJEET BROWN DO) Heart Score: Risk Factors: Risk Factors: DM, Current or recent (<one month) smoker, HTN, HLP, family history of CAD, obesity. Risk Scores: Score 0 - 3: 2.5% MACE over next 6 weeks - Discharge Home Score 4 - 6: 20.3% MACE over next 6 weeks - Admit for Clinical Observation Score 7 - 10: 72.7% MACE over next 6 weeks - Early Invasive Strategies (BALJEET BROWN DO) Current Medications: Current Medications Medications (Trade) Dose Ordered Sig/Rajiv Start Time Stop Time Status Last Admin Dose Admin Sodium Chloride 1,000 ml @ 1,000 mls/hr Q1H 10/10/20 16:30 10/10/20 17:29 (BALJEET BROWN DO) Allergies: Allergies: Allergies Coded Allergies Type Severity Reaction Last Updated Verified aspirin Allergy Intermediate Hives 07/30/19 Yes fentanyl Allergy Intermediate Hives 07/30/19 Yes ketorolac Allergy Intermediate Hives 07/30/19 Yes tramadol Allergy Intermediate Hives 07/30/19 Yes (BALJEET BROWN DO) Physical Exam: PE: Constitutional: Well developed, well nourished, no acute distress, non-toxic appearance. [] HENT: Normocephalic, atraumatic, bilateral external ears normal, oropharynx moist, no oral exudates, nose normal. [] Eyes: PERRLA, EOMI, conjunctiva normal, no discharge. [] Neck: Normal range of motion, no tenderness, supple, no stridor. [] Cardiovascular:Heart rate regular rhythm, no murmur [] Lungs & Thorax: Bilateral breath sounds clear to auscultation [] Abdomen: Bowel sounds normal, soft, diffuse tenderness to palpation, no masses, no pulsatile masses. Skin: Warm, dry, no erythema, no rash. [] Back: No tenderness, no CVA tenderness. [] Extremities: No tenderness, no cyanosis, no clubbing, ROM intact, no edema. [] Neurologic: Alert and oriented X 3, normal motor function, normal sensory function, no focal deficits noted. [] Psychologic: Affect normal, judgement normal, mood normal. [] (BALJEET BROWN DO) Current Patient Data: Labs: Laboratory Tests Test 10/10/20 17:01 10/10/20 17:20 10/10/20 17:24 White Blood Count 10.5 x10^3/uL Red Blood Count 5.59 x10^6/uL Hemoglobin 15.8 g/dL Hematocrit 46.7 % Mean Corpuscular Volume 84 fL Mean Corpuscular Hemoglobin 28 pg Mean Corpuscular Hemoglobin Concent 34 g/dL Red Cell Distribution Width 19.6 % Platelet Count 258 x10^3/uL Neutrophils (%) (Auto) 80 % Lymphocytes (%) (Auto) 11 % Monocytes (%) (Auto) 8 % Eosinophils (%) (Auto) 0 % Basophils (%) (Auto) 1 % Neutrophils # (Auto) 8.4 x10^3/uL Lymphocytes # (Auto) 1.2 x10^3/uL Monocytes # (Auto) 0.9 x10^3/uL Eosinophils # (Auto) 0.0 x10^3/uL Basophils # (Auto) 0.1 x10^3/uL Urine Collection Type Unknown Urine Color Yellow Urine Clarity Clear Urine pH 6.0 Urine Specific [place] >=1.030 Urine Protein 100 mg/dL Urine Glucose (UA) >=1000 mg/dL Urine Ketones (Stick) 40 mg/dL Urine Blood Negative Urine Nitrite Negative Urine Bilirubin Negative Urine Urobilinogen Dipstick 0.2 mg/dL Urine Leukocyte Esterase Negative Urine RBC 0 /HPF Urine WBC 0 /HPF Urine Squamous Epithelial Cells Occ /LPF Urine Bacteria 0 /HPF Urine Opiates Screen Neg Urine Methadone Screen Neg Urine Barbiturates Neg Urine Phencyclidine Screen Neg Urine Amphetamine/Methamphetamine Neg Urine Benzodiazepines Screen Neg Urine Cocaine Screen Neg Urine Cannabinoids Screen Pos Urine Ethyl Alcohol Neg Glucose (Fingerstick) 458 mg/dL Current Medications Medications (Trade) Dose Ordered Sig/Rajiv Route PRN Reason Start Time Stop Time Status Last Admin Dose Admin Sodium Chloride 1,000 ml @ 1,000 mls/hr Q1H IV 10/10/20 16:30 10/10/20 17:29 DC 10/10/20 17:16 Morphine Sulfate (Morphine Sulfate) 4 mg 1X ONCE IV 10/10/20 17:15 10/10/20 17:16 DC 10/10/20 17:16 Ondansetron HCl (Zofran) 4 mg 1X ONCE IVP 10/10/20 17:15 10/10/20 17:16 DC 10/10/20 17:16 Sodium Chloride 1,000 ml @ 1,000 mls/hr 1X ONCE IV 10/10/20 17:45 10/10/20 18:44 (BALJEET BROWN DO) EKG: EKG: [] (BALJEET BROWN DO) Radiology/Procedures: Radiology/Procedures: [] (BALJEET BROWN DO) Impression: IMPRESSION: There is moderate wall thickening of the stomach. There is mild wall thickening of small bowel loops. Findings suggest nonspecific gastroenteritis. There is no bowel obstruction. (LUÍS MEADOWS DO) Course & Med Decision Making: Course & Med Decision Making Pertinent Labs and Imaging studies reviewed. (See chart for details) Patient is a 55-year-old male with history of chronic abdominal pain presented to ER today for 7-day history abdominal pain with nausea vomiting diarrhea. CT scan of his abdomen pelvis pending at this time. Patient care was endorsed to the incoming physician Dr. Luís Meadows at shift change. (BALJEET BROWN DO) Course & Med Decision Making Assumed care at shift change disposition pending radiologic imaging laboratory analysis and reevaluation. CT imaging shows no acute process-- no bowel obstruction. Glucose > 400 Urine with Ketones 40 Acetone present Treatment with 2L NS Morphine for pain. Insulin 0.1 unit/kg Patient advises me that he has been noncompliant with regards to taking his diabetes medications. Informed patient that his blood sugars were greater than 400. Patient requesting admission to the hospital for blood sugar control. Repeat blood sugar--- 357. Patient discharged home to follow up with PCP. (LUÍS MEADOWS DO) Dragon Disclaimer: Dragon Disclaimer: This electronic medical record was generated, in whole or in part, using a voice recognition dictation system. (BALJEET BROWN DO) Departure Departure Impression: Primary Impression: Chronic generalized abdominal pain Disposition: 01 DC HOME SELF CARE/HOMELESS Condition: STABLE Referrals: Katelin VIERA MD (PCP) Patient Instructions: Abdominal Pain, Chronic Pain, Viral Gastroenteritis Scripts Hydrocodone/Apap 5-325 (NORCO 5-325 TABLET) 1 Each Tablet 1 TAB PO PRN Q6HRS PRN for PAIN, #20 TAB 0 Refills Prov: LUÍS MEADOWS DO 10/10/20 BALJEET BROWN DO Oct 10, 2020 16:30 LUÍS MEADOWS DO Oct 10, 2020 19:10
[2020-10-10 17:15] LABS: BASO # 0.1 x10^3/uL (0.0-0.2); BASO % 1 % (0-3); EOS % 0 % (0-3); HEMATOCRIT 46.7 % (39.0-53.0); HEMOGLOBIN 15.8 g/dL (13.0-17.5); LYMPH # 1.2 x10^3/uL (1.0-4.8); LYMPH % 11 % (24-48); MEAN CORPUSCULAR HEMOGLOBIN 28 pg (25-35); MEAN CORPUSCULAR HGB CONC 34 g/dL (31-37); MEAN CORPUSCULAR VOLUME 84 fL (79-100); MONO # 0.9 x10^3/uL (0.0-1.1); MONO % 8 % (0-9); NEUT # 8.4 x10^3/uL (1.8-7.7); NEUT % 80 % (31-73); PLATELET COUNT 258 x10^3/uL (140-400); RED BLOOD COUNT 5.59 x10^6/uL (4.30-5.70); RED CELL DISTRIBUTION WIDTH 19.6 % (11.5-14.5); WHITE BLOOD COUNT 10.5 x10^3/uL (4.0-11.0)
[2020-10-10] MEDS ORDERED: MORPHINE SULFATE 4 MG/ML VIAL. IV ONE ×2 (17:15→18:00)
[2020-10-10] MEDS ORDERED: ONDANSETRON PF 4 MG/2 ML VIAL. IVP ONE (17:15)
[2020-10-10 17:29] LABS: BILIRUBIN,URINE NEGATIVE (NEG); CLARITY,URINE CLEAR; COLOR,URINE YELLOW; NITRITE,URINE NEGATIVE (NEG); PROTEIN,URINE 100 mg/dL (NEG-TRACE); UROBILINOGEN,URINE 0.2 mg/dL (0.2 mg/dL)
[2020-10-10 17:34] LABS: BARBITURATES NEG (NEG); BENZODIAZEPINES NEG (NEG); CANNABINOIDS POS (NEG); COCAINE NEG (NEG); METHADONE NEG (NEG); OPIATES NEG (NEG); PHENCYCLIDINE NEG (NEG)
[2020-10-10 17:35] LABS: AMPHETAMINE/METHAMPHETAMINE NEG (NEG)
[2020-10-10 17:36] LABS: BACTERIA,URINE 0 /HPF (0-FEW); RBC,URINE 0 /HPF (0-2); WBC,URINE 0 /HPF (0-4)
[2020-10-10] MEDS ORDERED: IV NORMAL SALINE 1000ML BAG 1,000 ML IV ONE ×2 (17:45→19:30)
[2020-10-10 18:20] LABS: CALCIUM 8.7 mg/dL (8.5-10.1); CREATININE 0.9 mg/dL (0.7-1.3); POTASSIUM 4.2 mmol/L (3.5-5.1)
[2020-10-10 18:25] LABS: ALBUMIN/GLOBULIN RATIO 0.9 (1.0-1.7); MAGNESIUM 2.2 mg/dL (1.8-2.4); TOTAL BILIRUBIN 0.8 mg/dL (0.2-1.0); TOTAL PROTEIN 6.5 g/dL (6.4-8.2)
[2020-10-10] MEDS ORDERED: CONTRAST GIVEN. MC PRN (18:45)
[2020-10-10] MEDS ORDERED: IOHEXOL 300 MG/ML 100ML VIAL. IV ONE (18:45)
--- NOTE | 2020-10-10 19:06 | RAD ---
PQRS Compliance Statement: One or more of the following individualized dose reduction techniques were utilized for this examination: 1. Automated exposure control 2. Adjustment of the mA and/or kV according to patient size 3. Use of iterative reconstruction technique CT ABD PELV W/ IV CONTRST ONLY Clinical Indication: Reason: ABDOMINAL PAIN, NAUSEA, VOMITING Comparison: CT abdomen and pelvis with contrast July 19, 2020. Technique: Helical CT imaging of the abdomen and pelvis is performed after 75 cc of Omnipaque 300 IV contrast. Oral contrast not administered. Findings: Minimal atelectasis posterior right lower lobe. Coronary artery disease. Liver, spleen, pancreas, and abdominal aorta caliber are normal. Cholecystectomy. Adrenal gland hyperplasia. Kidneys enhance symmetrically, no hydronephrosis. There is moderate wall thickening of the gastric body and antrum. There is no surrounding inflammation. There is also mild wall thickening of several small bowel loops. No small bowel obstruction is seen. The appendix is normal. There is no colon wall thickening. Urinary bladder is normal. Prostate and seminal vesicles are normal. There is no pelvic free fluid. There is degenerative endplate spurring of the thoracolumbar spine. IMPRESSION: There is moderate wall thickening of the stomach. There is mild wall thickening of small bowel loops. Findings suggest nonspecific gastroenteritis. There is no bowel obstruction. Electronically signed by: Reggie Lopez MD (10/10/2020 7:03 PM) [facility]
[2020-10-10] MEDS ORDERED: HYDR-3164 PO (19:15)
[2020-10-10] MEDS ORDERED: INSULIN REGULAR 100 UNIT/ML 3ML VIAL. IV ONE (19:30)
[2020-10-10] MEDS ORDERED: DICYCLOMINE 20 MG/2 ML VIAL. IM ONE (19:30)
[2020-10-10 21:30] VITALS: BP 171/82
== END 2020-10-10 21:50 | disposition home or self-care (01) ==
LOC: ER 16:02
DX: G89.29 Other chronic pain (principal); R10.84 Generalized abdominal pain; R11.2 Nausea with vomiting, unspecified; R19.7 Diarrhea, unspecified; E86.0 Dehydration; R53.1 Weakness; F32.9 Major depressive disorder, single episode, unspecified; E11.9 Type 2 diabetes mellitus without complications; I10 Essential (primary) hypertension; K86.1 Other chronic pancreatitis; F17.200 Nicotine dependence, unspecified, uncomplicated; Z98.890 Other specified postprocedural states; Z88.6 Allergy status to analgesic agent; Z88.8 Allergy status to other drugs, medicaments and biological substances
CPT/HCPCS: 36415; 74177; 80053; 80307; 81001; 82010; 82962; 83690; 83735; 85025; 96361; 96372; 96374; 96375; 96376; 99285; J0500; J1815; J2270; J2405; J7030; Q9967

== ENCOUNTER 2020-10-14 10:28 | Emergency (ER) | payer MEDICARE, MEDICAID ==
[~2020-10-14] VITALS: Ht 165.1 cm; Wt 68.0 kg
--- NOTE | 2020-10-14 11:08 | PHYS DOC ---
Past Medical History Past Medical History: Depression, Diabetes-Type II, Hypertension, Pancreatitis, Other Additional Past Medical Histor: C-DIFF Past Surgical History: Other Additional Past Surgical Histo: PANCREASE,ABD SURGERY BOWEL TEAR Smoking Status: Current Every Day Smoker Alcohol Use: None Drug Use: None General Adult EDM: Chief Complaint: ABDOMINAL PAIN HPI: HPI: 55 yo M PMH Depression, Diabetes-Type II, Hypertension, HLD, c- difficile, BPH, gallstone pancreatitis s/p Whipple and anastomotic ulcer s/p repair of perforated ulcer at [facility], presents to the ED with c/o diffuse, nonlocalized bowel pain with nausea, and diarrhea for the past week, was seen in the ED 4 days ago for the same complaints. Pt states his pmd should be calling and recommending admission along with IV medications including "morphine or fentanyl." States he's had cdiff and "this is not cdiff," denies a malodorous foul-smelling stool. EMR reviewed-pt was here 4 days ago, CT a/p w/contrast concerning for colitis, was al'ed with norca. Was admitted 07/2020 for intractable abdominal pain. Pt has not followed up with his surgeon at [facility]. Hasn't drank alcohol in over 20 years. Review of Systems: Review of Systems: Constitutional: Denies fever or chills. [] Eyes: Denies change in visual acuity. [] HENT: Denies nasal congestion or sore throat. [] Respiratory: Denies cough or shortness of breath. [] Cardiovascular: Denies chest pain or edema. [] GI: Denies melena or hematochezia : Denies dysuria. [] Musculoskeletal: Denies back pain or joint pain. [] Integument: Denies rash. [] Neurologic: Denies headache, focal weakness or sensory changes. [] Endocrine: Denies polyuria or polydipsia. [] Lymphatic: Denies swollen glands. [] Psychiatric: Denies depression or anxiety. [] Heart Score: Risk Factors: Risk Factors: DM, Current or recent (<one month) smoker, HTN, HLP, family history of CAD, obesity. Risk Scores: Score 0 - 3: 2.5% MACE over next 6 weeks - Discharge Home Score 4 - 6: 20.3% MACE over next 6 weeks - Admit for Clinical Observation Score 7 - 10: 72.7% MACE over next 6 weeks - Early Invasive Strategies Allergies: Allergies: Allergies Coded Allergies Type Severity Reaction Last Updated Verified aspirin Allergy Intermediate Hives 07/30/19 Yes fentanyl Allergy Intermediate Hives 07/30/19 Yes ketorolac Allergy Intermediate Hives 07/30/19 Yes tramadol Allergy Intermediate Hives 07/30/19 Yes Physical Exam: PE: Constitutional: Well developed, well nourished, no acute distress, non-toxic appearance. HENT: Normocephalic, atraumatic, mucous membranes slightly dry Eyes: EOMI, conjunctiva normal, no discharge. Neck: Normal range of motion, supple, Cardiovascular: S1/2 present, regular rhythm, mild tachycardia on arrival Lungs & Thorax: Speaking in full sentences, bilateral equal chest rise, no tachypnea or increased work of breathing Abdomen: soft, no focal ttp, pain, guarding or peritoneal signs Skin: Warm, dry, no erythema, no rash. [] Back: No tenderness, Extremities: No tenderness, no cyanosis, no edema Neurologic: Alert and oriented X 3, normal motor function, normal sensory function, no focal deficits noted. [] Psychologic: Affect normal, judgement normal, mood normal. [] Current Patient Data: Vital Signs: Vital Signs Date Time Temp Pulse Resp B/P (MAP) Pulse Ox O2 Delivery O2 Flow Rate FiO2 10/14/20 10:52 98.0 118 18 114/72 (86) 100 Room Air 98.0 EKG: EKG: [] Radiology/Procedures: Radiology/Procedures: IMAGING REPORT Signed PATIENT: SARAN CLARK ACCOUNT: [id number] : 1965 LOCATION: ER AGE: 55 SEX: M EXAM STATUS: REG ER ORD. PHYSICIAN: GIUSEPPE FISHMAN DO REASON: abd pain PROCEDURE: CT ABD PELV W/ IV CONTRST ONLY CT abdomen pelvis with contrast. HISTORY: Abdominal pain CT scan the abdomen pelvis was done using 75 mL Omnipaque 300 contrast. The patient's had multiple prior CTs. Lung bases are clear. There is no effusion. There is mild thoracolumbar scoliosis. A liver lesion is not identified. Patient's had a cholecystectomy. Spleen is normal in appearance. Adrenal glands are unremarkable. Patient's had a gastrojejunostomy, probably a Whipple procedure. There is no mass or hydronephrosis in the kidneys. There is atherosclerotic change in the aorta without an aneurysm. There is no mass at the tail of the pancreas. Pattern in the stomach is unchanged from prior exams. There is fluid in the proximal small bowel loops which is nonspecific. There is no bowel obstruction. There is nonspecific mild bowel wall enhancement similar to recent studies. There is no free air. There is no ascites or free air or abscess. IMPRESSION: 1. No bowel obstruction. 2. Nonspecific changes in the bowel similar to multiple recent studies. 3. No other acute finding. PQRS Compliance Statement: One or more of the following individualized dose reduction techniques were utilized for this examination: 1. Automated exposure control 2. Adjustment of the mA and/or kV according to patient size 3. Use of iterative reconstruction technique Electronically signed by: Akshat Louis MD (10/14/2020 12:38 PM) [facility] DICTATED and SIGNED BY: AKSHAT LOUIS MD DATE: 10/14/20 [id number] 0 Course & Med Decision Making: Course & Med Decision Making Pertinent Labs and Imaging studies reviewed. (See chart for details) Concern for chronic diffuse abdominal pain in the setting of vomiting and diarrhea (no witnessed v/d in ed). Pt is calm and in no distress-no indication for narcotic medications (pt is requesting). Tachycardia resolved with IVFs to upper 80s/low 90s. Urinalysis contaminated but will treat for complicated UTI. Will also DC with Zofran ODT. Strict ED return precautions were given for dehydration, neurologic deficits or severe pain. Encouraged urgent outpatient follow-up with PMD (regarding chronic pain management) and GI and general surgery. Life-threatening processes were considered but are low suspicion at this time, given history and physical exam. Pt was educated on all prescription medications and adverse effects. All patient's questions were answered and pt was stable at time of discharge. Life/limb-threatening differential includes but is not limited to, aortic dissection, aortic aneurysm, acute coronary syndrome, surgical abdomen (appendicitis, cholecystitis, ischemic bowel, strangulated hernia, etc), bowel obstruction or volvulus, bladder outlet obstruction, gastrointestinal bleeding, inflammatory bowel disease, peptic ulcer disease, sepsis, diverticular disease, ureterolithiasis, nephrolithiasis, testicular torsion, or genitourinary infection. I spoken with the patient and her caregivers. I explained the patient's condition, diagnoses and treatment plan based on the information available to me at this time. I have answered the patient and her caregiver's questions and addressed any concerns. The patient and her caregivers have a good understanding of patient's diagnosis, condition and treatment plan as can be expected at this point. Vital signs have been stable. Patient's condition is stable and appropriate for discharge from the emergency department. Patient will pursue further outpatient evaluation with primary care physician or other designated or consulting physician as outlined in the discharge instructions. The patient and/or caregivers are agreeable to this plan of care and follow-up instructions have been explained in detail. The patient and/or caregivers have received these instructions in written form and have expressed an understanding of the discharge instructions. The patient and/or caregivers are aware that any significant change of condition or worsening of symptoms should prompt immediate return to this or the closest emergency department or call to 1. Denisa Disclaimer: Denisa Disclaimer: This electronic medical record was generated, in whole or in part, using a voice recognition dictation system. Departure Departure Impression: Primary Impression: Complicated urinary tract infection Additional Impressions: Vomiting and diarrhea Chronic generalized abdominal pain Disposition: 01 DC HOME SELF CARE/HOMELESS Condition: STABLE Referrals: Katelin VIERA MD (PCP) in 1 week Patient Instructions: Abdominal Pain, Urinary Tract Infection Additional Instructions: FOLLOW UP WITH SURGERY: [facility] Address: [address] [address] FOLLOW UP WITH GASTROENTEROLOGY: Gastroenterology [facility] Address: [address] [place] [id number] EMERGENCY DEPARTMENT GENERAL DISCHARGE INSTRUCTIONS Thank you for coming to [facility] Emergency Department (ED) today and trusting us with you care. We trust that you had a positive experience in our Emergency Department. If you wish to speak to the department management, you may call the Director at [phone]. YOUR FOLLOW UP INSTRUCTIONS ARE FOLLOWS: 1. Do you have a private Doctor? If you do not have a private doctor, please ask for a resource list of physicians or clinics that may be able to assist you with follow up care. 2. The Emergency Physicain has interpreted your x-rays. The X-Ray specialist will also review them. If there is a change in the findings, you will be notified in 48 hours when at all possible. 3. A lab test or culture has been done, your results will be reviewed and you will be notified if you need a change in treatment. ADDITIONAL INSTRUCTIONS AND INFORMATION: 1. Your care today has been supervised by a physician who is specially trained in emergency care. Many problems require more than one evaluation for a complete diagnosis and treatment. We recommend that you schedule your follow up appointment as recommended to ensure complete treatment of you illness or injury. If you are unable to obtain follow up care and continue to have a problem, or if your condition worsens, we recommend that you return to the ED. 2. We are not able to safely determine your condition over the phone nor are we able to give sound medical advice over the phone. For these safety reasons, if you call for medical advice we will ask you to come to the ED for further evaluation. 3. If you have any questions regarding these discharge instructions please call the ED at [phone]. SAFETY INFORMATION: In the interest of safety, wellness, and injury prevention; we encourage you to wear your sealbelt, if you smoke; quite smoking, and we encourage family to use a protective helmet for bicycling and other sporting events that present an increased risk for head injury. IF YOUR SYMPTOMS WORSEN OR NEW SYMPTOMS DEVELOP, OR YOU HAVE CONCERNS ABOUT YOUR CONDITION; OR IF YOUR CONDITION WORSENS WHILE YOU ARE WAITING FOR YOUR FOLLOW UP APPOINTMENT; EITHER CONTACT YOUR PRIMARY CARE DOCTOR, THE PHYSICIAN WHOSE NAME AND NUMBER YOU WERE GIVEN, OR RETURN TO THE ED IMMEDIATELY. Scripts Ondansetron (ONDANSETRON ODT) 4 Mg Tab.rapdis 1 TAB PO PRN Q6-8HRS, #20 TAB Prov: GIUSEPPE FISHMAN DO 10/14/20 Cefpodoxime Proxetil (CEFPODOXIME PROXETIL) 200 Mg Tablet 1 TAB PO BID for 14 Days, #28 TAB Prov: GIUSEPPE FISHMAN DO 10/14/20 GIUSEPPE FISHMAN DO Oct 14, 2020 11:08
[2020-10-14 11:21] LABS: BILIRUBIN,URINE SMALL (NEG); CLARITY,URINE CLEAR; COLOR,URINE AMBER; NITRITE,URINE NEGATIVE (NEG); PROTEIN,URINE 30 mg/dL (NEG-TRACE)
[2020-10-14 11:31] LABS: HYALINE CASTS, URINE MANY /HPF
[2020-10-14 11:37] LABS: RBC,URINE 0 /HPF (0-2)
[2020-10-14 11:38] LABS: BACTERIA,URINE FEW /HPF (0-FEW)
[2020-10-14 11:46] LABS: BASO % 0 % (0-3); EOS % 0 % (0-3); HEMATOCRIT 48.7 % (39.0-53.0); HEMOGLOBIN 16.5 g/dL (13.0-17.5); LYMPH # 1.3 x10^3/uL (1.0-4.8); LYMPH % 12 % (24-48); MEAN CORPUSCULAR HEMOGLOBIN 29 pg (25-35); MEAN CORPUSCULAR HGB CONC 34 g/dL (31-37); MEAN CORPUSCULAR VOLUME 85 fL (79-100); MONO # 0.6 x10^3/uL (0.0-1.1); MONO % 6 % (0-9); NEUT # 8.8 x10^3/uL (1.8-7.7); NEUT % 81 % (31-73); PLATELET COUNT 260 x10^3/uL (140-400); RED BLOOD COUNT 5.73 x10^6/uL (4.30-5.70); RED CELL DISTRIBUTION WIDTH 18.8 % (11.5-14.5); WHITE BLOOD COUNT 10.8 x10^3/uL (4.0-11.0)
[2020-10-14 12:02] LABS: CALCIUM 7.8 mg/dL (8.5-10.1); CREATININE 0.8 mg/dL (0.7-1.3); GFR 121.4
[2020-10-14 12:04] LABS: POTASSIUM 3.8 mmol/L (3.5-5.1)
[2020-10-14 12:08] LABS: ALBUMIN 2.9 g/dL (3.4-5.0); MAGNESIUM 2.2 mg/dL (1.8-2.4); TOTAL BILIRUBIN 0.5 mg/dL (0.2-1.0); TOTAL PROTEIN 5.8 g/dL (6.4-8.2)
[2020-10-14 12:12] LABS: PLT ESTIMATE ADEQUATE (ADEQUATE)
[2020-10-14] MEDS ORDERED: CONTRAST GIVEN. MC PRN (12:15)
[2020-10-14] MEDS ORDERED: IOHEXOL 300 MG/ML 100ML VIAL. IV ONE (12:15)
--- NOTE | 2020-10-14 12:41 | RAD ---
CT abdomen pelvis with contrast. HISTORY: Abdominal pain CT scan the abdomen pelvis was done using 75 mL Omnipaque 300 contrast. The patient's had multiple prior CTs. Lung bases are clear. There is no effusion. There is mild thoracolumbar scoliosis. A liver lesion is not identified. Patient's had a cholecystectomy. Spleen is normal in appearance. Adrenal glands are unremarkable. Patient's had a gastrojejunostomy, probably a Whipple procedure. There is no mass or hydronephrosis in the kidneys. There is atherosclerotic change in the aorta without an aneurysm. There is no mass at the tail of the pancreas. Pattern in the stomach is unchanged from prior exams. There is fluid in the proximal small bowel loops which is nonspecific. There is no bowel obstruction. There is nonspecific mild bowel wall enhancement similar to recent studies. There is no free air. There is no ascites or free air or abscess. IMPRESSION: 1. No bowel obstruction. 2. Nonspecific changes in the bowel similar to multiple recent studies. 3. No other acute finding. PQRS Compliance Statement: One or more of the following individualized dose reduction techniques were utilized for this examination: 1. Automated exposure control 2. Adjustment of the mA and/or kV according to patient size 3. Use of iterative reconstruction technique Electronically signed by: Akshat Louis MD (10/14/2020 12:38 PM) [facility]
[2020-10-14] MEDS ORDERED: FAMOTIDINE 20 MG/2 ML VIAL IVP ONE (12:45)
[2020-10-14] MEDS ORDERED: LIDO:MAALOX 1:1 20 ML SINGLE DOSE. SWSW ONE (12:45)
[2020-10-14] MEDS ORDERED: METOCLOPRAMIDE HCL 10 MG/2 ML VIAL. IVP ONE (12:45)
[2020-10-14 13:12] LABS: BARBITURATES NEG (NEG); BENZODIAZEPINES NEG (NEG); CANNABINOIDS POS (NEG); COCAINE NEG (NEG); METHADONE NEG (NEG); OPIATES NEG (NEG); PHENCYCLIDINE NEG (NEG)
[2020-10-14 13:13] LABS: AMPHETAMINE/METHAMPHETAMINE NEG (NEG)
[2020-10-14] MEDS ORDERED: CEFP200T PO (13:48)
[2020-10-14 14:00] VITALS: BP 125/79
[2020-10-14] MEDS ORDERED: ONDA4TAB12 PO (14:01)
== END 2020-10-14 14:19 | disposition home or self-care (01) ==
LOC: ER 10:28
DX: N39.0 Urinary tract infection, site not specified (principal); R10.84 Generalized abdominal pain; R11.2 Nausea with vomiting, unspecified; R19.7 Diarrhea, unspecified; F32.9 Major depressive disorder, single episode, unspecified; E11.9 Type 2 diabetes mellitus without complications; I10 Essential (primary) hypertension; K86.1 Other chronic pancreatitis; F17.200 Nicotine dependence, unspecified, uncomplicated; Z98.890 Other specified postprocedural states; Z88.8 Allergy status to other drugs, medicaments and biological substances; Z88.6 Allergy status to analgesic agent
CPT/HCPCS: 36415; 74177; 80053; 80307; 81001; 83690; 83735; 84484; 85025; 87086; 96374; 96375; 99285; G0480; J2765; J3490; Q9967

== ENCOUNTER → 2021-03-02 | Outpatient (CLI) | payer MEDICARE, MEDICAID ==
[~2021-03-02] MED LIST changes: +CEFP200T PO
--- NOTE | 2021-03-02 12:00 | RAD ---
MRI abdomen without contrast and MRCP: Clinical indications: Abdominal pain. Status post Whipple procedure. COMPARISON: October 06, 2020.. Technique: T1 and T2 weighted MRI sequences of the abdomen was performed in the axial and coronal sri gustavo. In phase and out of phase MRI sequences were performed. Using a single shot heavily T2-weighted fast spin-echo and MIP algorithm, 3-D reconstructed MRCP was generated. Findings: MRI abdomen: No liver lesion. The spleen is homogeneous in appearance. Spleen is not enlarged. The head and neck and distal body of the pancreas have been surgically resected Whipple's procedure. Gastrojejunostomy is apparent. Choledochojejunostomy is apparent. The gallbladder is surgically absent. No adrenal mass is evident. Small bilateral renal cysts are seen. This is incidental finding and no further follow-up is needed. No hydronephrosis No focal aneurysmal dilatation of the abdominal aorta is seen. No enlarged abdominal lymphadenopathy is seen. No ascites is seen. There is a focus of signal abnormality involving the central L1 vertebral body which is increased on T2-weighted images and decreased on T1-weighted images. There is focal sclerosis of this vertebral feli dy seen on the CT study which is unchanged dating back to January 07, 2019 CT study. 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 MRCP: Choledochojejunostomy is evident. There is no abnormal dilatation of the extrahepatic biliary tree an d no stone or stricture is seen. The residual main pancreatic duct within the body and tail of the pancreas is mildly dilated It miranda ures 3 mm and is unchanged from previous CT study. IMPRESSION: Partial pancreatectomy with Whipple's procedure. Mild unchanged dilatation of the main pancreatic duct within the residual pancreas in comparison to t he abdomen CT study dated October 06, 2020. No extra hepatic biliary ductal dilatation or stone or s tricture is seen. No new abnormality. Electronically signed by: Pardeep Joseph MD (03/02/2021 11:57 AM) [place] [id number]
== END ==
LOC: MRI 09:15
PROVIDERS: ATTEND Internal Medicine Gastroenterology
DX: K90.81 Whipple's disease (principal); N28.1 Cyst of kidney, acquired; Z90.49 Acquired absence of other specified parts of digestive tract
CPT/HCPCS: 74181

== ENCOUNTER 2021-09-25 09:10 | Emergency (ER) | payer MEDICARE, MEDICAID ==
[~2021-09-25] VITALS: Ht 172.7 cm; Wt 75.0 kg
[2021-09-25] MEDS ORDERED: IV NORMAL SALINE 1000ML BAG 1,000 ML IV SCH (10:00)
--- NOTE | 2021-09-25 10:06 | PHYS DOC ---
Past Medical History Past Medical History: Depression, Diabetes-Type II, Hypertension, Pancreatitis, Other Additional Past Medical Histor: C-DIFF (GABRIEL AGRAWAL APRN) Past Surgical History: Other Additional Past Surgical Histo: PANCREASE,ABD SURGERY BOWEL TEAR (GABRIEL AGRAWAL APRN) Smoking Status: Current Every Day Smoker Alcohol Use: None Drug Use: None (GABRIEL AGRAWAL APRN) General Adult EDM: Chief Complaint: MULTIPLE COMPLAINTS HPI: HPI: Patient is a 56-year-old male who presents to the emergency department today for nausea, vomiting, diarrhea, umbilical/lower abdominal pain that radiates to his bilateral flanks and sweats. He rates his pain 9 out of 10. No treatment prior to arrival. Patient has a history of pancreatitis with a Whipple, bowel tear and diabetes type 2. Patient denies any blood in his stools or vomit, urinary complaints, fevers. Patient is well known to [facility] and was seen there yesterday for same complaints. Patient had unremarkable blood work and Ct scan showed proctitis. Per PAs note at [facility] patient was requesting Morphine when he arrived. (GABRIEL AGRAWAL APRN) Review of Systems: Review of Systems: Constitutional: See HPI GI: See HPI : See HPI Musculoskeletal: See HPI (GABRIEL AGRAWAL APRN) Heart Score: C/O Chest Pain: N/A Risk Factors: Risk Factors: DM, Current or recent (<one month) smoker, HTN, HLP, family history of CAD, obesity. Risk Scores: Score 0 - 3: 2.5% MACE over next 6 weeks - Discharge Home Score 4 - 6: 20.3% MACE over next 6 weeks - Admit for Clinical Observation Score 7 - 10: 72.7% MACE over next 6 weeks - Early Invasive Strategies (GABRIEL AGRAWAL APRN) Current Medications: Current Medications Medications (Trade) Dose Ordered Sig/Rajiv Start Time Stop Time Status Last Admin Dose Admin Sodium Chloride 1,000 ml @ 1,000 mls/hr Q1H 09/25/21 10:00 09/25/21 10:59 UNV (GABRIEL AGRAWAL APRN) Allergies: Allergies: Allergies Coded Allergies Type Severity Reaction Last Updated Verified aspirin Allergy Intermediate Hives 07/30/19 Yes fentanyl Allergy Intermediate Hives 07/30/19 Yes ketorolac Allergy Intermediate Hives 07/30/19 Yes tramadol Allergy Intermediate Hives 07/30/19 Yes (GABRIEL AGRAWAL APRN) Physical Exam: PE: Constitutional: Well developed, well nourished, no acute distress, non-toxic appearance. [] HENT: Normocephalic, atraumatic, bilateral external ears normal, oropharynx moist, no oral exudates, nose normal. [] Eyes: PERRL, EOMI, conjunctiva normal, no discharge. [] Neck: Normal range of motion, no tenderness, supple, no stridor. [] Cardiovascular:Heart rate regular rhythm, no murmur [] Lungs & Thorax: Bilateral breath sounds clear to auscultation [] Abdomen: Bowel sounds normal, soft, umbilical and bilateral lower abdominal pain with palpation, no rebound tenderness, no masses, no pulsatile masses. [] Skin: Warm, dry, no erythema, no rash. [] Back: No tenderness, no CVA tenderness. [] Extremities: No tenderness, no cyanosis, no clubbing, ROM intact, no edema. [] Neurologic: Alert and oriented X 3, normal motor function, normal sensory function, no focal deficits noted. [] Psychologic: Affect normal, judgement normal, mood normal. [] (GABRIEL AGRAWAL APRN) Current Patient Data: Labs: Laboratory Tests Test 09/25/21 10:00 09/25/21 10:05 Urine Collection Type Void Urine Color Yellow Urine Clarity Clear Urine pH 6.5 Urine Specific [place] 1.025 Urine Protein 100 mg/dL Urine Glucose (UA) Negative mg/dL Urine Ketones (Stick) Negative mg/dL Urine Blood Negative Urine Nitrite Negative Urine Bilirubin Negative Urine Urobilinogen Dipstick 0.2 mg/dL Urine Leukocyte Esterase Negative Urine RBC 0 /HPF Urine WBC 0 /HPF Urine Squamous Epithelial Cells Few /LPF Urine Bacteria 0 /HPF Urine Mucus Slight /LPF White Blood Count 9.5 x10^3/uL Red Blood Count 4.41 x10^6/uL Hemoglobin 13.1 g/dL Hematocrit 38.7 % Mean Corpuscular Volume 88 fL Mean Corpuscular Hemoglobin 30 pg Mean Corpuscular Hemoglobin Concent 34 g/dL Red Cell Distribution Width 17.1 % Platelet Count 346 x10^3/uL Neutrophils (%) (Auto) 78 % Lymphocytes (%) (Auto) 13 % Monocytes (%) (Auto) 7 % Eosinophils (%) (Auto) 1 % Basophils (%) (Auto) 1 % Neutrophils # (Auto) 7.4 x10^3/uL Lymphocytes # (Auto) 1.3 x10^3/uL Monocytes # (Auto) 0.7 x10^3/uL Eosinophils # (Auto) 0.0 x10^3/uL Basophils # (Auto) 0.1 x10^3/uL Sodium Level 140 mmol/L Potassium Level 4.1 mmol/L Chloride Level 106 mmol/L Carbon Dioxide Level 28 mmol/L Anion Gap 6 Blood Urea Nitrogen 9 mg/dL Creatinine 0.5 mg/dL Estimated GFR (Cockcroft-Gault) 208.1 BUN/Creatinine Ratio 18 Glucose Level 166 mg/dL Calcium Level 7.8 mg/dL Total Bilirubin 0.2 mg/dL Aspartate Amino Transf (AST/SGOT) 43 U/L Alanine Aminotransferase (ALT/SGPT) 63 U/L Alkaline Phosphatase 195 U/L Total Protein 5.8 g/dL Albumin 2.2 g/dL Albumin/Globulin Ratio 0.6 Lipase 16 U/L Current Medications Medications (Trade) Dose Ordered Sig/Rajiv Route PRN Reason Start Time Stop Time Status Last Admin Dose Admin Sodium Chloride 1,000 ml @ 1,000 mls/hr Q1H IV 09/25/21 10:00 09/25/21 10:15 DC Morphine Sulfate (Morphine Sulfate) 4 mg 1X ONCE IVP 09/25/21 10:15 09/25/21 10:16 DC 09/25/21 10:18 Sodium Chloride 1,000 ml @ 1,000 mls/hr 1X ONCE IV 09/25/21 10:15 09/25/21 11:14 DC 09/25/21 10:21 Ondansetron HCl (Zofran) 4 mg 1X ONCE IVP 09/25/21 10:30 09/25/21 10:31 DC 09/25/21 10:29 Vital Signs: Vital Signs Date Time Temp Pulse Resp B/P (MAP) Pulse Ox O2 Delivery O2 Flow Rate FiO2 09/25/21 09:10 98.0 75 18 172/82 (112) 99 Room Air 98.0 (GABRIEL AGRAWAL BUSINESS ADVISOR) EKG: EKG: EKG performed by ER staff at 1018 shows sinus rhythm with a rate of 69, QTC of 417, no STEMI read by at 1022 (GABRIEL AGRAWAL BUSINESS ADVISOR) Radiology/Procedures: Radiology/Procedures: []PROCEDURE: CT ABDOMEN PELVIS WO CONTRAST EXAM: CT Abdomen and Pelvis without IV contrast CLINICAL HISTORY: umbillical/flank pain COMPARISON: 10/14/2020 TECHNIQUE: Helical CT of the abdomen and pelvis without intravenous contrast. Ax ial, coronal and sagittal reformatted images were generated. PQRS compliance statement - One or more of the following individualized dose reduction techniques were utilized for this study: 1. Automated exposure control 2. Adjustment of the mA and/or kV according to patient size 3. Use of iterative reconstruction technique FINDINGS: Lack of intravenous contrast limits evaluation of solid organs, vasculature, and lymph nodes. Lower chest: Trace right pleural effusion. Dependent opacities in lower lobes likely scarring/atelectasis. Abdomen and Pelvis: No focal liver lesion. Cholecystectomy clips are seen. Pancreas, spleen and right adrenal gland are unremarkable. Left adrenal gland is mildly thickened possibly physiologic. No focal renal lesion. Trace infiltration about the right kidney, nonspecific but could be seen with pyelonephritis. Appendix is normal. Fluid distention of the colon with some fluid levels, may be seen with diarrheal state. No abdominal or pelvic lymphadenopathy. Trace infiltration about the right colon. Aorta is normal in caliber. Atherosclerotic calcifications are seen. Trace fat- containing femoral hernias. Bones: Degenerative changes of spine. No aggressive osseous lesion. IMPRESSION: 1. Trace infiltration about the right colon may be seen with colitis. Fluid distention of the colon with intermittent fluid levels may be seen with diarrheal state. Following resolution of the acute process, the right colon can be evaluated with colonoscopy to exclude associated mass. 2. There is trace infiltration about the right kidney, possibly reactive or may be seen with pyelonephritis and can be correlated with urinalysis. Electronically signed by: Seth Tomas MD (09/25/2021 11:06 AM) [id number] DICTATED and SIGNED BY: SETH TOMAS MD DATE: 09/25/21 [id number] (GABRIEL AGRAWAL APRN) Course & Med Decision Making: Course & Med Decision Making Pertinent Labs and Imaging studies reviewed. (See chart for details) [] Patient presents to the emergency department with nausea, vomiting, diarrhea and abdominal pain. Work-up in the ER consisted of blood work, CT scan of abdomen and pelvis, urinalysis. Nursing staff had difficulty obtaining a peripheral IV, an in the EJ was performed and IV contrast unable to be administered through EJ per protocol therefore CT abdomen and pelvis without c ontrast was performed. Patient treated with IV fluids, nausea and pain medication. Patient was seen at [place] yesterday for same complaints and was diagnosed with proctitis. Patient advised at that time to follow up with his PCP for his chronic back and abdominal pain. Blood work is unremarkable. The CT scan of his abdomen and pelvis showed colitis. Patient will be treated with an antibiotic outpatient. Patient advised to follow-up with his primary care provider if he requires any additional pain medication. Patient advised to increase his fluids and increase his vitamin D intake. I discussed with patient all findings and diagnostic testing as well as the need to follow-up with PCP for further evaluation and treatment or return to the ER if any new or worsening symptoms. Strict return precautions were also discussed at length. Patient voiced understanding and agreement with the plan. Patient is hemodynamically stable at the time of disposition. (GABRIEL AGRAWAL APRN) Dragon Disclaimer: Dragon Disclaimer: This electronic medical record was generated, in whole or in part, using a voice recognition dictation system. (GABRIEL AGRAWAL APRN) Departure Departure Impression: Primary Impression: Colitis Disposition: 01 HOME / SELF CARE / HOMELESS Condition: GOOD Referrals: Katelin VIERA MD (PCP) Patient Instructions: Abdominal Pain, Colitis Additional Instructions: You were seen in the emergency department today for chronic abdominal pain. Your work-up was unremarkable however your CT scan of your abdomen showed colitis this will be treated with antibiotic. You were noted to have a decreased calcium level, increase your calcium and vitamin D intake at home. You can do this by drinking more milk. You will need to follow-up with your primary care provider tomorrow regarding your ER visit. If you require additional pain medication, you will need to see your primary care provider follow-up with the pain management doctor for your chronic abdominal and back pain. If you develop worsening of your abdominal or back pain, intractable nausea or vomiting, high fevers refractory to treatment, blood in your stools or vomit please return to the ER. EMERGENCY DEPARTMENT GENERAL DISCHARGE INSTRUCTIONS Thank you for coming to [facility] Emergency Department (ED) today and trusting us with you care. We trust that you had a positive experience in our Emergency Department. If you wish to speak to the department management, you may call the Director at [phone]. YOUR FOLLOW UP INSTRUCTIONS ARE FOLLOWS: 1. Do you have a private Doctor? If you do not have a private doctor, please ask for a resource list of physicians or clinics that may be able to assist you with follow up care. 2. The Emergency Physicain has interpreted your x-rays. The X-Ray specialist will also review them. If there is a change in the findings, you will be notified in 48 hours when at all possible. 3. A lab test or culture has been done, your results will be reviewed and you will be notified if you need a change in treatment. ADDITIONAL INSTRUCTIONS AND INFORMATION: 1. Your care today has been supervised by a physician who is specially trained in emergency care. Many problems require more than one evaluation for a complete diagnosis and treatment. We recommend that you schedule your follow up appointment as recommended to ensure complete treatment of you illness or injury. If you are unable to obtain follow up care and continue to have a problem, or if your condition worsens, we recommend that you return to the ED. 2. We are not able to safely determine your condition over the phone nor are we able to give sound medical advice over the phone. For these safety reasons, if you call for medical advice we will ask you to come to the ED for further evaluation. 3. If you have any questions regarding these discharge instructions please call the ED at [phone]. SAFETY INFORMATION: In the interest of safety, wellness, and injury prevention; we encourage you to wear your sealbelt, if you smoke; quite smoking, and we encourage family to use a protective helmet for bicycling and other sporting events that present an increased risk for head injury. IF YOUR SYMPTOMS WORSEN OR NEW SYMPTOMS DEVELOP, OR YOU HAVE CONCERNS ABOUT YOUR CONDITION; OR IF YOUR CONDITION WORSENS WHILE YOU ARE WAITING FOR YOUR FOLLOW UP APPOINTMENT; EITHER CONTACT YOUR PRIMARY CARE DOCTOR, THE PHYSICIAN WHOSE NAME AND NUMBER YOU WERE GIVEN, OR RETURN TO THE ED IMMEDIATELY. Scripts Ciprofloxacin Hcl (CIPROFLOXACIN HCL) 500 Mg Tablet 1 TAB PO BID for colitis for 5 Days, #10 TAB 0 Refills Prov: GABRIEL AGRAWAL APRN 09/25/21 Attending Signature I have participated in the care of this patient and I have reviewed and agree with all pertinent clinical information above including history, exam, and recommendations. (SONAL HEARN DO) GABRIEL AGRAWAL APRN Sep 25, 2021 10:05 SONAL HEARN DO Sep 25, 2021 12:01
[2021-09-25] MEDS ORDERED: IV NORMAL SALINE 1000ML BAG 1,000 ML IV ONE (10:15)
[2021-09-25] MEDS ORDERED: MORPHINE SULFATE 4 MG/ML INJ. IVP ONE (10:15)
[2021-09-25 10:19] LABS: BILIRUBIN,URINE NEGATIVE (NEG); CLARITY,URINE CLEAR; COLOR,URINE YELLOW; NITRITE,URINE NEGATIVE (NEG); PH,URINE 6.5 (<5.0-8.0); PROTEIN,URINE 100 mg/dL (NEG-TRACE); UROBILINOGEN,URINE 0.2 mg/dL (0.2 mg/dL)
[2021-09-25] MEDS ORDERED: ONDANSETRON PF 4 MG/2 ML VIAL. IVP ONE (10:30)
[2021-09-25 10:35] LABS: BACTERIA,URINE 0 /HPF (0-FEW); RBC,URINE 0 /HPF (0-2); WBC,URINE 0 /HPF (0-4)
[2021-09-25 10:36] LABS: CALCIUM 7.8 mg/dL (8.5-10.1); CREATININE 0.5 mg/dL (0.7-1.3); GFR 208.1; POTASSIUM 4.1 mmol/L (3.5-5.1)
[2021-09-25 10:44] LABS: ALBUMIN 2.2 g/dL (3.4-5.0); ALBUMIN/GLOBULIN RATIO 0.6 (1.0-1.7); TOTAL BILIRUBIN 0.2 mg/dL (0.2-1.0); TOTAL PROTEIN 5.8 g/dL (6.4-8.2)
[2021-09-25 10:51] LABS: BASO # 0.1 x10^3/uL (0.0-0.2); BASO % 1 % (0-3); EOS % 1 % (0-3); HEMATOCRIT 38.7 % (39.0-53.0); HEMOGLOBIN 13.1 g/dL (13.0-17.5); LYMPH # 1.3 x10^3/uL (1.0-4.8); LYMPH % 13 % (24-48); MEAN CORPUSCULAR HEMOGLOBIN 30 pg (25-35); MEAN CORPUSCULAR HGB CONC 34 g/dL (31-37); MEAN CORPUSCULAR VOLUME 88 fL (79-100); MONO # 0.7 x10^3/uL (0.0-1.1); MONO % 7 % (0-9); NEUT # 7.4 x10^3/uL (1.8-7.7); NEUT % 78 % (31-73); PLATELET COUNT 346 x10^3/uL (140-400); RED BLOOD COUNT 4.41 x10^6/uL (4.30-5.70); RED CELL DISTRIBUTION WIDTH 17.1 % (11.5-14.5); WHITE BLOOD COUNT 9.5 x10^3/uL (4.0-11.0)
--- NOTE | 2021-09-25 11:09 | RAD ---
EXAM: CT Abdomen and Pelvis without IV contrast CLINICAL HISTORY: umbillical/flank pain COMPARISON: 10/14/2020 TECHNIQUE: Helical CT of the abdomen and pelvis without intravenous contrast. Axial, coronal and sagi ttal reformatted images were generated. PQRS compliance statement - One or more of the following individualized dose reduction techniques wer e utilized for this study: 1. Automated exposure control 2. Adjustment of the mA and/or kV according to patient size 3. Use of iterative reconstruction technique FINDINGS: Lack of intravenous contrast limits evaluation of solid organs, vasculature, and lymph nodes. Lower chest: Trace right pleural effusion. Dependent opacities in lower lobes likely scarring/atelectasis. Abdomen and Pelvis: No focal liver lesion. Cholecystectomy clips are seen. Pancreas, spleen and right adrenal gland are u nremarkable. Left adrenal gland is mildly thickened possibly physiologic. No focal renal lesion. Trac e infiltration about the right kidney, nonspecific but could be seen with pyelonephritis. Appendix is normal. Fluid distention of the colon with some fluid levels, may be seen with diarrheal state. No abdominal or pelvic lymphadenopathy. Trace infiltration about the right colon. Aorta is normal in caliber. Atherosclerotic calcifications are seen. Trace fat-containing femoral her nias. Bones: Degenerative changes of spine. No aggressive osseous lesion. IMPRESSION: 1. Trace infiltration about the right colon may be seen with colitis. Fluid distention of the colon with intermittent fluid levels may be seen with diarrheal state. Following resolution of the acute pr ocess, the right colon can be evaluated with colonoscopy to exclude associated mass. 2. There is trace infiltration about the right kidney, possibly reactive or may be seen with pyelone phritis and can be correlated with urinalysis. Electronically signed by: Seth Reno MD (09/25/2021 11:06 AM) [facility]
[2021-09-25] MEDS ORDERED: CIPR500T2 PO (11:22)
[2021-09-25 11:43] VITALS: BP 175/84
[2021-09-25] MEDS ORDERED: MORPHINE SULFATE 2 MG/ML INJ. IVP ONE (12:00)
--- NOTE | 2021-09-25 13:15 | EKG ---
[facility] [address] [place] [address] Test Date: 2021-09-25 Test Time: 10:18:25 Pat Name: SARAN CLARK Department: Room: Gender: M [employer]: : 1965 Requested By: GABRIEL AGRAWAL Order Number: [id number] Reading MD: Xander Monahan MD Measurements Intervals [place] Rate: 69 P: 42 DE: 128 QRS: 39 QRSD: 82 T: 46 QT: 388 QTc: 417 Interpretive Statements SINUS RHYTHM Electronically Signed On 09-30-2021 14:13:28 FRANCHISE BUSINESS CONSULTANT by Xander Monahan MD
== END 2021-09-25 12:11 | disposition home or self-care (01) ==
LOC: ER 09:10
DX: K52.9 Noninfective gastroenteritis and colitis, unspecified (principal); E11.9 Type 2 diabetes mellitus without complications; I10 Essential (primary) hypertension; F17.200 Nicotine dependence, unspecified, uncomplicated; Z88.4 Allergy status to anesthetic agent; Z88.6 Allergy status to analgesic agent
CPT/HCPCS: 36415; 74176; 80053; 81001; 83690; 85025; 93005; 96361; 96374; 96375; 96376; 99285; J2270; J2405; J7030

== ENCOUNTER 2022-01-06 10:03 | Emergency (ER) | payer MEDICARE, MEDICAID ==
[~2022-01-06] VITALS: Ht 165.1 cm; Wt 61.3 kg
[~2022-01-06 10:03] MED LIST changes: +CIPR500T2 PO; +COLE1TAB PO; +FAMO20TA5 PO; +FIDA200T PO; +LIPA1CAP31 PO; +OXYC5TAB4 PO; +VANC250C3 PO
[2022-01-06] MEDS ORDERED: ONDANSETRON PF 4 MG/2 ML VIAL. IVP ONE ×2 (12:00→16:00)
[2022-01-06] MEDS ORDERED: MORPHINE SULFATE 4 MG/ML INJ. IVP ONE (12:00)
[2022-01-06] MEDS ORDERED: IV NORMAL SALINE 1000ML BAG 1,000 ML IV ONE (12:00)
[2022-01-06 12:52] LABS: BASO # 0.1 x10^3/uL (0.0-0.2); BASO % 1 % (0-3); EOS % 0 % (0-3); HEMATOCRIT 41.8 % (39.0-53.0); HEMOGLOBIN 13.5 g/dL (13.0-17.5); LYMPH # 1.5 x10^3/uL (1.0-4.8); LYMPH % 12 % (24-48); MEAN CORPUSCULAR HEMOGLOBIN 28 pg (25-35); MEAN CORPUSCULAR HGB CONC 32 g/dL (31-37); MEAN CORPUSCULAR VOLUME 85 fL (79-100); MONO # 0.8 x10^3/uL (0.0-1.1); MONO % 7 % (0-9); NEUT % 81 % (31-73); PLATELET COUNT 415 x10^3/uL (140-400); RED BLOOD COUNT 4.92 x10^6/uL (4.30-5.70); RED CELL DISTRIBUTION WIDTH 17.1 % (11.5-14.5); WHITE BLOOD COUNT 12.4 x10^3/uL (4.0-11.0)
[2022-01-06 13:03] LABS: ANION GAP 10 (6-14); BLOOD UREA NITROGEN 7 mg/dL (8-26); BUN/CREATININE RATIO 10 (6-20); CALCIUM 8.2 mg/dL (8.5-10.1); CARBON DIOXIDE 27 mmol/L (21-32); CHLORIDE 103 mmol/L (98-107); CREATININE 0.7 mg/dL (0.7-1.3); GFR 141.2; GLUCOSE 269 mg/dL (70-99); SODIUM 140 mmol/L (136-145)
[2022-01-06 13:09] LABS: ALBUMIN 2.5 g/dL (3.4-5.0); ALBUMIN/GLOBULIN RATIO 0.6 (1.0-1.7); ALK PHOS 265 U/L (46-116); ALT (SGPT) 35 U/L (16-63); AST (SGOT) 22 U/L (15-37); LIPASE < 10 U/L (73-393); TOTAL BILIRUBIN 0.6 mg/dL (0.2-1.0); TOTAL PROTEIN 6.4 g/dL (6.4-8.2)
[2022-01-06] MEDS ORDERED: CONTRAST GIVEN. MC PRN (14:15)
[2022-01-06] MEDS ORDERED: IOHEXOL 300 MG/ML 100ML VIAL. IV ONE (14:30)
[2022-01-06] MEDS ORDERED: MORPHINE SULFATE 10 MG/ML VIAL. IVP ONE (14:30)
--- NOTE | 2022-01-06 14:48 | PHYS DOC ---
Past Medical History Past Medical History: Depression, Diabetes-Type II, Hypertension, Pancreatitis, Other Additional Past Medical Histor: C-DIFF Past Surgical History: Other Additional Past Surgical Histo: Whipple, scar tissue repair Smoking Status: Current Every Day Smoker Additional Information: 3/4 pack/day Alcohol Use: None Drug Use: None General Adult EDM: Chief Complaint: DIARRHEA HPI: HPI: Patient is a 56 year old male w/ hx of whipple, recently diagnosed c diff colitis who presents with abdominal pain and diarrhea. He was just discharged on 12/31 from this facility after having his PO vancomycin changed to fidaxomicin 200 mg bid. States the diarrhea has continued. 13 episodes last night. Watery stool. States any time he eats he has stool shortly after. Reports nausea but no vomiting. No fever or chills. States his abdominal pain has been progressive, diffuse pain. Is on oxycodone at home. Review of Systems: Review of Systems: Constitutional: Denies fever or chills. [] Eyes: Denies change in visual acuity. [] HENT: Denies nasal congestion or sore throat. [] Respiratory: Denies cough or shortness of breath. [] Cardiovascular: Denies chest pain or edema. [] GI: Reports abdominal pain, nausea, and diarrhea. Integument: Denies rash. [] Neurologic: Denies headache, focal weakness or sensory changes. [] Psychiatric: Denies depression or anxiety. [] Heart Score: C/O Chest Pain: N/A Risk Factors: Risk Factors: DM, Current or recent (<one month) smoker, HTN, HLP, family history of CAD, obesity. Risk Scores: Score 0 - 3: 2.5% MACE over next 6 weeks - Discharge Home Score 4 - 6: 20.3% MACE over next 6 weeks - Admit for Clinical Observation Score 7 - 10: 72.7% MACE over next 6 weeks - Early Invasive Strategies Current Medications: Current Medications Medications (Trade) Dose Ordered Sig/Rajiv Start Time Stop Time Status Last Admin Dose Admin Info (CONTRAST GIVEN -- Rx MONITORING) 1 each PRN DAILY PRN 01/06/22 14:15 01/08/22 14:14 Iohexol (Omnipaque 300 Mg/ml) 75 ml 1X ONCE 01/06/22 14:30 01/06/22 14:31 DC 01/06/22 14:10 75 ML Morphine Sulfate (Morphine Sulfate) 5 mg 1X ONCE 01/06/22 14:30 01/06/22 14:31 DC Ondansetron HCl (Zofran) 4 mg 1X ONCE 01/06/22 12:00 01/06/22 12:01 DC 01/06/22 12:40 4 MG Sodium Chloride 1,000 ml @ 1,000 mls/hr 1X ONCE 01/06/22 12:00 01/06/22 12:59 DC 01/06/22 12:40 1,000 MLS/HR Allergies: Allergies: Allergies Coded Allergies Type Severity Reaction Last Updated Verified acetaminophen Allergy Intermediate 12/28/21 Yes aspirin Allergy Intermediate Hives 12/28/21 Yes fentanyl Allergy Intermediate Hives 12/28/21 Yes ketorolac Allergy Intermediate Hives 12/28/21 Yes tramadol Allergy Intermediate Hives 12/28/21 Yes Physical Exam: PE: Constitutional: Well developed, well nourished, no acute distress, non-toxic cynthia earance. [] HENT: Normocephalic, atraumatic Neck: Normal range of motion, no tenderness, supple, no stridor. [] Cardiovascular:Heart rate regular rhythm, no murmur [] Lungs & Thorax: Bilateral breath sounds clear to auscultation [] Abdomen: Diffuse abdominal tenderness to palpation. + voluntary guarding. Non- focal. Skin: Warm, dry, no erythema, no rash. [] Back: No tenderness, no CVA tenderness. [] Extremities: No tenderness, no cyanosis, no clubbing, ROM intact, no edema. [] Neurologic: Alert and oriented X 3, normal motor function, normal sensory function, no focal deficits noted. [] Psychologic: Affect normal, judgement normal, mood normal. [] Current Patient Data: Labs: Laboratory Tests Test 01/06/22 10:51 01/06/22 12:30 Glucose (Fingerstick) 274 mg/dL (70-99) H White Blood Count 12.4 x10^3/uL (4.0-11.0) H Red Blood Count 4.92 x10^6/uL (4.30-5.70) Hemoglobin 13.5 g/dL (13.0-17.5) Hematocrit 41.8 % (39.0-53.0) Mean Corpuscular Volume 85 fL (79-100) Mean Corpuscular Hemoglobin 28 pg (25-35) Mean Corpuscular Hemoglobin Concent 32 g/dL (31-37) Red Cell Distribution Width 17.1 % (11.5-14.5) H Platelet Count 415 x10^3/uL (140-400) H Neutrophils (%) (Auto) 81 % (31-73) H Lymphocytes (%) (Auto) 12 % (24-48) L Monocytes (%) (Auto) 7 % (0-9) Eosinophils (%) (Auto) 0 % (0-3) Basophils (%) (Auto) 1 % (0-3) Neutrophils # (Auto) 10.0 x10^3/uL (1.8-7.7) H Lymphocytes # (Auto) 1.5 x10^3/uL (1.0-4.8) Monocytes # (Auto) 0.8 x10^3/uL (0.0-1.1) Eosinophils # (Auto) 0.0 x10^3/uL (0.0-0.7) Basophils # (Auto) 0.1 x10^3/uL (0.0-0.2) Sodium Level 140 mmol/L (136-145) Potassium Level 4.0 mmol/L (3.5-5.1) Chloride Level 103 mmol/L (98-107) Carbon Dioxide Level 27 mmol/L (21-32) Anion Gap 10 (6-14) Blood Urea Nitrogen 7 mg/dL (8-26) L Creatinine 0.7 mg/dL (0.7-1.3) Estimated GFR (Cockcroft-Gault) 141.2 BUN/Creatinine Ratio 10 (6-20) Glucose Level 269 mg/dL (70-99) H Calcium Level 8.2 mg/dL (8.5-10.1) L Total Bilirubin 0.6 mg/dL (0.2-1.0) Aspartate Amino Transferase (AST) 22 U/L (15-37) Alanine Aminotransferase (ALT) 35 U/L (16-63) Alkaline Phosphatase 265 U/L (46-116) H Total Protein 6.4 g/dL (6.4-8.2) Albumin 2.5 g/dL (3.4-5.0) L Albumin/Globulin Ratio 0.6 (1.0-1.7) L Lipase < 10 U/L (73-393) L Laboratory Tests 01/06/22 12:30 Laboratory Tests 01/06/22 12:30 Vital Signs: Vital Signs Date Time Temp Pulse Resp B/P (MAP) Pulse Ox O2 Delivery O2 Flow Rate FiO2 01/06/22 12:41 68 18 152/80 (104) 98 Room Air 01/06/22 10:45 98.4 98.4 EKG: EKG: [] Radiology/Procedures: Radiology/Procedures: [] Impression: [id number] [place] [address] IMAGING REPORT Signed PATIENT: SARAN CLARK ACCOUNT: [id number] : 1965 LOCATION: ER AGE: 56 SEX: M EXAM STATUS: REG ER ORD. PHYSICIAN: CAROLANN GALLARDO MD REASON: colitis now with worsening of pain, leukocytosis PROCEDURE: CT ABD PELV W/ IV CONTRST ONLY EXAM: Abdomen and pelvis CT with intravenous contrast. HISTORY: Colitis. Leukocytosis. TECHNIQUE: Computed tomographic images of the abdomen and pelvis were obtained following the administration of intravenous contrast. Multiplanar reformatting was performed. *One or more of the following individualized dose reduction techniques were utilized for this examination: 1. Automated exposure control. 2. Adjustment of the mA and/or kV according to patient size. 3. Use of iterative reconstruction technique. COMPARISON: 12/28/2021. FINDINGS: Evaluation of the lower thorax demonstrates a trace right pleural effusion. There is no infiltrate. The heart is normal in size. No hepatic lesion is seen. There is mild periportal edema, likely due to the hydration status of the patient. The gallbladder is surgically absent. There is atrophy and ductal dilatation involving the pancreatic body and tail. There are surgical clips within the kodi hepatis. The spleen is normal in size. There is bilateral adrenal gland thickening with a superimposed left adrenal nodule measuring 2.0 cm. There are small simple appearing left greater than right renal cysts. There is no hy dronephrosis. There is no appendicitis. There are prominent areas of fluid-filled loops of small bowel throughout the abdomen. There is also wall thickening involving the stomach. There is wall thickening involving the colon and rectum. There is bladder wall thickening due to underdistention. There is aortic and aortic branch vessel atherosclerosis. There is no aneurysm. There is no lymphadenopathy. There is degenerative change involving the spine. There is no acute or suspicious osseous finding. IMPRESSION: 1. Prominent air and fluid-filled small bowel throughout the abdomen with wall thickening and thickened gastric mucosa suggesting gastroenteritis. No obstruction is seen. 2. Colonic and rectal wall thickening likely due to colitis of infectious or inflammatory etiologies. This is stable in appearance. 3. Multiple simple appearing renal cysts. 4. Bladder wall thickening due to underdistention or cystitis. 5. Atrophic pancreatic body and tail with ductal dilatation and evidence of prior Whipple surgery. Electronically signed by: Jeannette Gonzalez MD (01/06/2022 2:55 PM) [facility] DICTATED and SIGNED BY: JEANNETTE GONZALEZ MD DATE: 01/06/22 [id number] 0 Course & Med Decision Making: Course & Med Decision Making Pertinent Labs and Imaging studies reviewed. (See chart for details) Patient 56-year-old male with history of Whipple and recently diagnosed C. difficile infection discharged on 12/31 on Fidaxomicin who presents with worsening abdominal pain and diarrhea. On arrival is afebrile, hemodynamically stable, overall well-appearing but with diffuse tenderness and guarding on examination. CMP similar to recent baseline. Slight new leukocytosis to 12 K. Given his significant tenderness and surgical history abdomen pelvis was obtained. 1448 CT without significant change from previous during his last admission. Discussed findings with patient and explained that the hospital would not be likely to provide care that he will not have at home between p.o. pain meds and p.o. antibiotics for continued C. difficile infection. At time of discharge patient did complain of some right-sided dental discomfort, he does seem to have dental caries and potential dental infection. I asked him to follow-up with a dentist, given his C. difficile infection feel the risks of antibiotics may be higher than the potential benefit. Patient expresses understanding. [id number] Denisa Disclaimer: Denisa Disclaimer: This electronic medical record was generated, in whole or in part, using a voice recognition dictation system. Departure Departure Impression: Primary Impression: Colitis Additional Impression: Intractable abdominal pain Disposition: HOME / SELF CARE / HOMELESS Condition: STABLE Referrals: Katelin VIERA MD (PCP) Patient Instructions: Clostridium Difficile Infection Additional Instructions: Please continue taking your home medications for C. difficile infection including fidaxomicin 200 mg twice daily. Please take all of your other medications as prescribed. For nausea you can take Zofran 4 mg, allowing it to dissolve under the tongue up to every 4-6 hours Scripts Ondansetron (ONDANSETRON ODT) 4 Mg Tab.rapdis 1 TAB PO PRN Q4-6HRS PRN for NAUSEA/VOMITING, #16 TAB Prov: CAROLANN GALLARDO MD 01/06/22 CAROLANN GALLARDO MD Jan 06, 2022 14:48
--- NOTE | 2022-01-06 14:58 | RAD ---
EXAM: Abdomen and pelvis CT with intravenous contrast. HISTORY: Colitis. Leukocytosis. TECHNIQUE: Computed tomographic images of the abdomen and pelvis were obtained following the administ ration of intravenous contrast. Multiplanar reformatting was performed. *One or more of the following individualized dose reduction techniques were utilized for this examina tion: 1. Automated exposure control. 2. Adjustment of the mA and/or kV according to patient size. 3. Use of iterative reconstruction technique. COMPARISON: 12/28/2021. FINDINGS: Evaluation of the lower thorax demonstrates a trace right pleural effusion. There is no inf iltrate. The heart is normal in size. No hepatic lesion is seen. There is mild periportal edema, like ly due to the hydration status of the patient. The gallbladder is surgically absent. There is atrophy and ductal dilatation involving the pancreatic body and tail. There are surgical clips within the kodi hepatis. The spleen is normal in size. Ther e is bilateral adrenal gland thickening with a superimposed left adrenal nodule measuring 2.0 cm. The re are small simple appearing left greater than right renal cysts. There is no hydronephrosis. There is no appendicitis. There are prominent areas of fluid-filled loops of small bowel throughout t he abdomen. There is also wall thickening involving the stomach. There is wall thickening involving t he colon and rectum. There is bladder wall thickening due to underdistention. There is aortic and aortic branch vessel atherosclerosis. There is no aneurysm. There is no lymphaden opathy. There is degenerative change involving the spine. There is no acute or suspicious osseous fin ding. IMPRESSION: 1. Prominent air and fluid-filled small bowel throughout the abdomen with wall thickening and thicken ed gastric mucosa suggesting gastroenteritis. No obstruction is seen. 2. Colonic and rectal wall thickening likely due to colitis of infectious or inflammatory etiologies. This is stable in appearance. 3. Multiple simple appearing renal cysts. 4. Bladder wall thickening due to underdistention or cystitis. 5. Atrophic pancreatic body and tail with ductal dilatation and evidence of prior Whipple surgery. Electronically signed by: Jeannette Landin MD (01/06/2022 2:55 PM) [facility]
[2022-01-06] MEDS ORDERED: ONDA4TAB12 PO (15:58)
[2022-01-06] MEDS ORDERED: MORPHINE SULFATE 2 MG/ML INJ. IVP ONE (16:00)
[2022-01-06 16:16] VITALS: BP 163/82
== END 2022-01-06 16:15 | disposition home or self-care (01) ==
LOC: ER 10:03
DX: K52.9 Noninfective gastroenteritis and colitis, unspecified (principal); E11.9 Type 2 diabetes mellitus without complications; I10 Essential (primary) hypertension; F17.200 Nicotine dependence, unspecified, uncomplicated; Z88.4 Allergy status to anesthetic agent; Z88.6 Allergy status to analgesic agent
CPT/HCPCS: 36415; 74177; 80053; 82962; 83690; 85025; 96361; 96374; 96375; 96376; 99285; J2270; J2405; J7030; Q9967

== ENCOUNTER 2022-03-02 16:35 | Inpatient (IN) | payer MEDICARE, MEDICAID ==
[~2022-03-02] VITALS: Ht 165.1 cm; Wt 57.8 kg
[2022-03-02] MEDS ORDERED: HYDROmorphone 2 MG/ML INJ. IM ONE (17:45)
--- NOTE | 2022-03-02 18:00 | PHYS DOC ---
Past Medical History Past Medical History: Depression, Diabetes-Type II, Hypertension, Pancreatitis, Other Additional Past Medical Histor: C-DIFF (KIM MEYER MD) Past Surgical History: Other Additional Past Surgical Histo: Whipple, scar tissue repair, NECK FUSIONS (KIM MEYER MD) Smoking Status: Current Every Day Smoker Alcohol Use: None Drug Use: None (KIM MEYER MD) General Adult EDM: Chief Complaint: right side chest pain HPI: HPI: Patient is a 57 year old M who presents with diffuse pain. Patient states it is a 10 out of 10. It is exacerbated with light touch on skin. Patient was s een here in the emergency department for opiate withdrawal. He states that he was in the emergency department last night after a fall that he sustained. He states that he was at [facility] and a CT scan was performed. Per patient nothing was found. He was discharged at that time to home and told to present to [place], our emergency department, if he continued to have pain. Currently he is complaining about pain all over his body, mostly in his back and abdomen. He has no other symptoms, no nausea vomiting, no fever, no chills, no ataxia, no neurological deficiencies. (IKM MEYER MD) Review of Systems: Review of Systems: Constitutional: Denies fever or chills. [] Eyes: Denies change in visual acuity. [] HENT: Denies nasal congestion or sore throat. [] Respiratory: Denies cough or shortness of breath. [] Cardiovascular: Denies chest pain or edema. [] GI: + abdominal pain, no nausea, vomiting, bloody stools or diarrhea. [] : Denies dysuria. [] Musculoskeletal: + back pain no joint pain. [] Integument: Denies rash. [] Neurologic: Denies headache, focal weakness or sensory changes. [] Endocrine: Denies polyuria or polydipsia. [] Lymphatic: Denies swollen glands. [] Psychiatric: Denies depression or anxiety. [] (KIM MEYER MD) Heart Score: C/O Chest Pain: No Risk Factors: Risk Factors: DM, Current or recent (<one month) smoker, HTN, HLP, family history of CAD, obesity. Risk Scores: Score 0 - 3: 2.5% MACE over next 6 weeks - Discharge Home Score 4 - 6: 20.3% MACE over next 6 weeks - Admit for Clinical Observation Score 7 - 10: 72.7% MACE over next 6 weeks - Early Invasive Strategies (KIM MEYER MD) C/O Chest Pain: N/A (BALJEET BROWN DO) Current Medications: Current Medications Medications (Trade) Dose Ordered Sig/Rajiv Start Time Stop Time Status Last Admin Dose Admin Hydromorphone HCl (Dilaudid) 1 mg 1X ONCE 03/02/22 17:45 03/02/22 17:46 (KIM MEYER MD) Allergies: Allergies: Allergies Coded Allergies Type Severity Reaction Last Updated Verified acetaminophen Allergy Intermediate 12/28/21 Yes aspirin Allergy Intermediate Hives 12/28/21 Yes fentanyl Allergy Intermediate Hives 12/28/21 Yes ketorolac Allergy Intermediate Hives 12/28/21 Yes tramadol Allergy Intermediate Hives 12/28/21 Yes (KIM MEYER MD) Physical Exam: PE: Constitutional: Well developed, well nourished, no acute distress, non-toxic appearance. [] HENT: Normocephalic, atraumatic, bilateral external ears normal, oropharynx moist, no oral exudates, nose normal. [] Eyes: PERRLA, EOMI, conjunctiva normal, no discharge. [] Neck: Normal range of motion, no tenderness, supple, no stridor. [] Cardiovascular:Heart rate regular rhythm, no murmur [] Lungs & Thorax: Bilateral breath sounds clear to auscultation [] Abdomen: Bowel sounds normal, soft, + diffuse tenderness, no masses, no pulsatile masses. [] Skin: Warm, dry, no erythema, no rash. [] Back: + tenderness throughout Extremities: No tenderness, no cyanosis, no clubbing, ROM intact, no edema. [] Neurologic: Alert and oriented X 3, normal motor function, normal sensory function, no focal deficits noted. [] Psychologic: Affect normal, judgement normal, mood normal. [] (KIM MEYER MD) Current Patient Data: Vital Signs: Vital Signs Date Time Temp Pulse Resp B/P (MAP) Pulse Ox O2 Delivery O2 Flow Rate FiO2 03/02/22 16:43 82 16 160/80 (106) 100 Room Air 03/02/22 16:36 98.1 98.1 (KIM MEYER MD) Labs: Laboratory Tests Test 03/02/22 18:20 White Blood Count 8.5 x10^3/uL Red Blood Count 4.48 x10^6/uL Hemoglobin 12.3 g/dL Hematocrit 37.8 % Mean Corpuscular Volume 84 fL Mean Corpuscular Hemoglobin 28 pg Mean Corpuscular Hemoglobin Concent 33 g/dL Red Cell Distribution Width 20.1 % Platelet Count 307 x10^3/uL Neutrophils (%) (Auto) 71 % Lymphocytes (%) (Auto) 15 % Monocytes (%) (Auto) 8 % Eosinophils (%) (Auto) 5 % Basophils (%) (Auto) 1 % Neutrophils # (Auto) 6.0 x10^3/uL Lymphocytes # (Auto) 1.3 x10^3/uL Monocytes # (Auto) 0.7 x10^3/uL Eosinophils # (Auto) 0.4 x10^3/uL Basophils # (Auto) 0.1 x10^3/uL Platelet Estimate Adequate Poikilocytosis Slight Anisocytosis Mod Schistocytes Occ Sodium Level 140 mmol/L Potassium Level 4.2 mmol/L Chloride Level 104 mmol/L Carbon Dioxide Level 30 mmol/L Anion Gap 6 Blood Urea Nitrogen 9 mg/dL Creatinine 0.9 mg/dL Estimated GFR (Cockcroft-Gault) 105.2 BUN/Creatinine Ratio 10 Glucose Level 399 mg/dL Calcium Level 8.2 mg/dL Total Bilirubin 0.4 mg/dL Aspartate Amino Transf (AST/SGOT) 42 U/L Alanine Aminotransferase (ALT/SGPT) 49 U/L Alkaline Phosphatase 187 U/L Total Protein 6.2 g/dL Albumin 2.5 g/dL Albumin/Globulin Ratio 0.7 Current Medications Medications (Trade) Dose Ordered Sig/Rajiv Route PRN Reason Start Time Stop Time Status Last Admin Dose Admin Hydromorphone HCl (Dilaudid) 1 mg 1X ONCE IM 03/02/22 17:45 03/02/22 17:46 DC 03/02/22 17:38 Morphine Sulfate (Morphine Sulfate) 4 mg 1X ONCE IVP 03/02/22 19:30 03/02/22 19:31 Sodium Chloride 1,000 ml @ 1,000 mls/hr 1X ONCE IV 03/02/22 19:30 03/02/22 20:29 (BALJEET BROWN DO) EKG: EKG: Sinus rhythm (KIM MEYER MD) Radiology/Procedures: Radiology/Procedures: [] Impression: 57-year-old male with recent pneumothorax and recent admission to this hospital as well as ER visit to [facility] last night presents with diffuse pain. (KIM MEYER MD) Radiology/Procedures: [facility] [address] [place] [address] IMAGING REPORT Signed PATIENT: SARAN CLARK ACCOUNT: [id number] : 1965 LOCATION: ER AGE: 57 SEX: M EXAM STATUS: PRE ER ORD. PHYSICIAN: KIM MEYER MD REASON: Short of breath f/u CXR PROCEDURE: CHEST AP ONLY Exam: Chest one view INDICATION: Short of breath TECHNIQUE: Frontal view of the chest Comparisons: 02/11/2022 FINDINGS: The cardiomediastinal silhouette and pulmonary vessels are within normal limits. Small to moderate Right apical pneumothorax. Bronchial plugs noted in the right upper lobe. IMPRESSION: Small to moderate right apical pneumothorax. Electronically signed by: Merly Roberto MD (03/02/2022 6:43 PM) [facility] DICTATED and SIGNED BY: MERLY ROBERTO MD DATE: 03/02/221840 (BALJEET BROWN DO) Course & Med Decision Making: Course & Med Decision Making Pertinent Labs and Imaging studies reviewed. (See chart for details) 57-year-old male with history of recent ER visit. Patient's work-up will include CBC, CMP, chest x-ray, he will be given 1 mg of Dilaudid here. He is not having any difficulty breathing, no chest pain, he is saturating well on room air. No suspicion for reaccumulation of pneumothorax, although we will work this up. He will need a follow-up chest x-ray, his chest x-ray from last night showed a small pneumothorax in the apical region on the right. [employer]structor [employer] recommended follow-up chest x-ray tomorrow and again in 1 week. He will need to follow-up with his primary care physician or retail account manager to have this performed. patient was passed to Dr Brown at 1800. (KIM MEYER MD) Course & Med Decision Making Patient is a 57-year-old male who presented to ER for evaluation of right-sided chest pain. Patient has persistent air leak from the small to moderate sized pneumothorax on the right side WITH PERSISTENT subcutaneous emphysema on the right side chest wall that extends to his upper back and neck area. Patient will be admitted to hospital for pain control and reevaluation. Discussed with Dr. Dawson who agreed to admit the patient. Patient is in no respiratory distress, his oxygen saturation is 98 200% on room air. Patient did not require a chest tube placement at this time (BALJEET BROWN DO) Dragon Disclaimer: Dragon Disclaimer: This electronic medical record was generated, in whole or in part, using a voice recognition dictation system. (KIM MEYER MD) Departure Departure Impression: Primary Impression: Persistent air leak Additional Impressions: Pneumothorax, right Chest wall pain Hyperglycemia Disposition: ADMITTED INPATIENT Admitting Physician: Madi. Reyes (BALJEET BROWN DO) Condition: STABLE Referrals: Katelin VIERA MD (PCP) KIM MEYER MD Mar 02, 2022 18:00 BALJEET BROWN DO Mar 02, 2022 19:27
[2022-03-02 18:26] LABS: BASO # 0.1 x10^3/uL (0.0-0.2); BASO % 1 % (0-3); EOS # 0.4 x10^3/uL (0.0-0.7); EOS % 5 % (0-3); HEMATOCRIT 37.8 % (39.0-53.0); HEMOGLOBIN 12.3 g/dL (13.0-17.5); LYMPH # 1.3 x10^3/uL (1.0-4.8); LYMPH % 15 % (24-48); MEAN CORPUSCULAR HEMOGLOBIN 28 pg (25-35); MEAN CORPUSCULAR HGB CONC 33 g/dL (31-37); MEAN CORPUSCULAR VOLUME 84 fL (79-100); MONO # 0.7 x10^3/uL (0.0-1.1); MONO % 8 % (0-9); NEUT % 71 % (31-73); PLATELET COUNT 307 x10^3/uL (140-400); RED BLOOD COUNT 4.48 x10^6/uL (4.30-5.70); RED CELL DISTRIBUTION WIDTH 20.1 % (11.5-14.5); WHITE BLOOD COUNT 8.5 x10^3/uL (4.0-11.0)
[2022-03-02 18:45] LABS: CALCIUM 8.2 mg/dL (8.5-10.1); CREATININE 0.9 mg/dL (0.7-1.3); GFR 105.2; POTASSIUM 4.2 mmol/L (3.5-5.1)
--- NOTE | 2022-03-02 18:46 | RAD ---
Exam: Chest one view INDICATION: Short of breath TECHNIQUE: Frontal view of the chest Comparisons: 02/11/2022 FINDINGS: The cardiomediastinal silhouette and pulmonary vessels are within normal limits. Small to moderate left apical pneumothorax. Bronchial plugs noted in the right upper lobe. IMPRESSION: Small to moderate right apical pneumothorax. Electronically signed by: Merly Jiménez MD (03/02/2022 6:43 PM) [facility]
[2022-03-02 18:50] LABS: ALBUMIN 2.5 g/dL (3.4-5.0); ALBUMIN/GLOBULIN RATIO 0.7 (1.0-1.7); TOTAL BILIRUBIN 0.4 mg/dL (0.2-1.0); TOTAL PROTEIN 6.2 g/dL (6.4-8.2)
[2022-03-02 18:58] LABS: ANISOCYTOSIS MOD; PLT ESTIMATE ADEQUATE (ADEQUATE); POIKILOCYTOSIS SLIGHT; SCHISTOCYTES OCC
[2022-03-02] MEDS ORDERED: MORPHINE SULFATE 4 MG/ML INJ. IVP ONE (19:30)
[2022-03-02] MEDS ORDERED: IV NORMAL SALINE 1000ML BAG 1,000 ML IV ONE (19:30)
[2022-03-02] MEDS ORDERED: ONDANSETRON PF 4 MG/2 ML VIAL. IVP PRN (20:00)
[2022-03-02 22:05] VITALS: BP 175/94
[2022-03-02] MEDS: MORPHINE SULFATE 4 MG/ML INJ. IVP PRN (22:08)
[2022-03-02] MEDS ORDERED: ONDANSETRON ODT 4 MG TAB.RAPDIS. PO PRN (23:30)
[2022-03-03] MEDS: PREGABALIN 75 MG CAPSULE PO SCH ×3 (00:09→20:31)
[2022-03-03] MEDS: MORPHINE SULFATE 4 MG/ML INJ. IVP PRN ×2 (00:10→11:58)
[2022-03-03] MEDS: INSULIN GLARGINE SYRINGE. SQ SCH ×2 (00:15→21:54)
[2022-03-03] MEDS: ZOLPIDEM 5 MG TABLET. PO PRN ×2 (00:59→20:31)
[2022-03-03] MEDS: oxyCODONE/APAP 10/325 1 TAB TABLET PO PRN ×6 (01:39→23:19)
[2022-03-03 03:27] VITALS: BP 82/94
[2022-03-03 06:26] VITALS: BP 141/88
[2022-03-03] MEDS: LIPASE/PROTEAS/AMYLAS 10/32/42 CAPSULE.DR. PO SCH ×3 (08:53→17:17)
[2022-03-03] MEDS: ASPIRIN CHEWABLE 81 MG TABLET. PO SCH (08:53)
[2022-03-03] MEDS: FAMOTIDINE 20 MG TABLET. PO SCH ×2 (08:54→20:31)
[2022-03-03] MEDS: LOSARTAN POTASSIUM 50 MG TABLET. PO SCH (08:54)
[2022-03-03] MEDS: FINASTERIDE 5 MG TABLET. PO SCH (08:54)
[2022-03-03] MEDS: INSULIN LISPRO 300 UNITS/3 ML VIAL. SQ SCH ×3 (08:59→17:19)
[2022-03-03] MEDS ORDERED: FIDAXOMICIN 200 MG TABLET PO SCH (09:00)
--- NOTE | 2022-03-03 09:44 | HP ---
DATE OF SERVICE: 03/03/2022 ADMIT DATE: 03/02/2022 HISTORY OF PRESENT ILLNESS: The patient is a 57-year-old -[place] male patient who actually was transferred to [facility] after a brief stay at [facility] where he presented with a pneumothorax that required chest tube placement; however, he had persistent air leak and therefore, the patient was transferred to [facility] where he underwent endobronchial valve placement and from there, he apparently was discharged home. He continued to have C. diff colitis and continued according to him on his vancomycin. 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 His CT scan of the chest done at [facility] Emergency Room showed that he has [id number] right apical pneumothorax as bronchial plug noted at the right upper lobe with atelectasis of the right upper lobe. He has also small amount of subcutaneous emphysema overlying the right chest wall. He presented again to the Emergency Room of [facility] with a complaint of generalized pain. According to the ER physician, he was rating his pain 10/10. He was evaluated again and has had lab work and imaging studies. His lab work were mostly unremarkable except his blood sugar was extremely high, although he was not in DKA and his Chest x-ray showed that he has [id number] right apical pneumothorax. The patient was admitted for further evaluation and treatment. PAST MEDICAL HISTORY: Significant for poorly controlled type 2 diabetes mellitus, hypertension, chronic pancreatitis. She has also history of depression, suicidal ideation and relapsing C. difficile colitis. He was admitted on 02/05 with right-sided spontaneous pneumothorax, treated with chest tube placement and eventually had an endobronchial valve. PAST SURGICAL HISTORY: Significant for Whipple's procedure, cervical spine fusion, bilateral carpal tunnel release. He underwent esophagogastroduodenoscopy twice and colonoscopy with polypectomy twice. He apparently has had surgery for that at [facility] and Whipple procedure was done in 2016. Has had at least 2 chest tube was placed here by the interventional radiologist and underwent endobronchial valve placement at [facility]. ALLERGIES: ALLERGIC TO ASPIRIN, FENTANYL, KETOROLAC, NAPROXEN, AND TRAMADOL. FAMILY HISTORY: He has 1 brother and 1 sister, both are younger and 5 sisters older almost all of them have diabetes and hypertension. His father at age of 78 because of lymphoma and his mother at age of 76 because of end-stage renal disease and complication of hemodialysis. SOCIAL HISTORY: He is , has 1 daughter and 1 son. He smokes almost a pack a day. He used to be a heavy drinker, he quit about 7 years ago. His last alcoholic drink was about 6 years ago and according to him, he smokes marijuana. He never used any illicit drugs. MEDICATIONS: He is currently on the following medications: He is on Dificid 200 mg twice a day, colestipol 1 gram twice a day, losartan potassium 50 mg once a day, aspirin 81 mg once a day, oxycodone/APAP 10/325 one tablet every 4 hours, pregabalin 300 mg twice a day, Ambien 10 mg at bedtime. He is on Zenpep 3 capsules 3 times a day with meals. He is on ondansetron 4 mg every 4 hours, famotidine 20 mg twice a day. He is on Lantus insulin 18 units at bedtime and Humalog 6 units before meals. He is on finasteride 5 mg daily. PHYSICAL EXAMINATION: GENERAL: On arrival to the Emergency Room, the patient was slightly tachypneic, but there is no pallor, jaundice, cyanosis or thyromegaly. No jugular venous distention. No lower limb edema. VITAL SIGNS: His heart rate was 112, blood pressure was 175/94, temperature 97.5, respiratory rate 22, and oxygen saturation was 100% on room air. HEAD, EYES, EARS, NOSE, AND THROAT: Normocephalic, atraumatic. NECK: Supple. HEART: Normal first and second heart sounds. No gallop, rub or murmur. CHEST: Clear to auscultation, no crepitation or rhonchi. ABDOMEN: Distended, soft, nontender. NEUROLOGIC: He was grossly intact. LABORATORY DATA: Showed a white cell count of 8.5, hemoglobin 12, hematocrit 37, MCV 84 and platelet count of 307,000 with normal manual differential. Serum sodium 140, potassium 4.2, chloride 104, bicarbonate 30, anion gap of 6, BUN 9, creatinine 0.9. Estimated GFR was 105 mL per minute. Her glucose was 399, calcium was 8.2. Total bilirubin is normal; however, AST, ALT, alkaline phosphatase are slightly elevated. Total protein 6.2, albumin was 2.5. ASSESSMENT AND PLAN: In summary, this is a 57-year-old -[place] male patient who came with generalized chest pain, was found to have a small right apical pneumothorax. He has other medical problems include: A. Type 2 diabetes mellitus. B. Hypertension. C. Chronic Clostridium difficile colitis. PLAN: My plan is to reconcile all his medication. Start him on vancomycin as apparently he is not taking it, although it was not on the list, but he said that he was taking the vancomycin. NATIVIDAD DR: Edwige TID: [id number]
--- NOTE | 2022-03-03 09:58 | CONS ---
DATE OF CONSULTATION: 03/03/2022 ATTENDING PHYSICIAN: Eric Dawson MD REASON FOR CONSULTATION: Recurrent pneumothorax. HISTORY OF PRESENT ILLNESS: The patient is very known to us. He is A 57-year-old male who has history of COPD. The patient was in the hospital last month after he had a right sided pneumothorax. He had persistent air leak. His CT chest at that time revealed right pneumothorax and pleural thickening and a tiny apical bleb along with some mucus plugging in the right upper lobe. The patient was transferred to [facility] for endobronchial valve. Per my discussion with interventional spark plug tester, the patient had a successful procedure and pneumothorax was resolved and chest tube was removed and he was subsequently discharged home. He also has been battling with Clostridium difficile colitis. He was brought into the hospital with diffuse pain, it is with light touch on the skin. He has been narcotic dependent, likely was on opiate withdrawal. The patient does not appear to be in any obvious respiratory distress. No cough, no fever, no chills, no chest pain. He said he does not do any drugs. Just had few cigarettes at home. His saturations on room air are 97%. PAST MEDICAL HISTORY: Significant for history of right sided pneumothorax, which was spontaneous. He had persistent air leak and subsequently had endobronchial valves at [facility]. History of depression, diabetes, C. diff colitis, pancreatitis. PAST SURGICAL HISTORY: Whipple surgeries, neck fusion. ALLERGIES: ACETAMINOPHEN, FENTANYL, KETOROLAC, AND TRAMADOL. MEDICATIONS: Reviewed as listed in the MRAD. REVIEW OF SYSTEMS: A 10-point system obtained. Pertinent positives discussed in my present illness, otherwise noncontributory. All systems that were negative were reviewed as well. SOCIAL HISTORY: Smoker for about 15-20 years. Denies substance abuse. PHYSICAL EXAMINATION: VITAL SIGNS: Vital signs were reviewed. Currently, 97% on room air. Afebrile, blood pressure 141 systolic. NECK: Supple. LUNGS: With diminished breath sounds bilaterally. CARDIOVASCULAR: With a regular rate. ABDOMEN: Soft, nontender. EXTREMITIES: With no pitting edema. LABORATORY DATA: Labs were reviewed. White cell count 8.5, hemoglobin 12.3 and platelets are 307. BUN 9, creatinine 0.9. Albumin 2.5. IMPRESSION: 1. Recurrent pneumothorax. This is a patient who had a spontaneous right sided pneumothorax last month and had a prolonged hospital stay with persistent air leak. He was subsequently transferred to [facility] for endobronchial valve. It was successful and he was subsequently discharged home after removal of chest tube. He now has a recurrent right sided pneumothorax. Clinically asymptomatic. Currently on room air. Pneumothorax is approximately 15%. 3. Tobacco use, likely underlying chronic obstructive pulmonary disease. 4. Previous abnormal CT chest with right sided apical bleb, chronic obstructive pulmonary disease and some mucus plugging in the right upper lobe along with pleural thickening. 5. Clostridium difficile colitis. 6. Chronic narcotic dependence with withdrawal. 7. Moderate protein-calorie malnutrition. RECOMMENDATIONS: 1. Discussed with Dr. Dawson and the patient. At this point, he is asymptomatic. We will follow up another chest x-ray to rule out any progression. 2. We will hold off any intervention. 3. We will reach out to [facility] to get their recommendations as well. If the pneumothorax worsen despite having endobronchial valve placement, so he may need surgical correction. 4. Pain control per PCP. 5. Repeat chest x-ray in next [address]: Jonel TID: [id number]
[2022-03-03 11:00] VITALS: BP 140/83
[2022-03-03] MEDS: COLESTIPOL HCL 1 GM TABLET PO SCH ×2 (11:04→22:04)
[2022-03-03] MEDS: VANCOMYCIN 125 MG/2.5 ML ORAL SOLUTION. PO SCH ×3 (12:26→20:30)
[2022-03-03 15:00] VITALS: BP 143/96
--- NOTE | 2022-03-03 17:45 | NUR ---
Pt. asking for pain meds, informed it is too early for PO meds and IV meds are no longer available. Pt. then c/o SOB. O2 sats checked at 98% on RA. Dr. Dawson notified of pt's c/o pain, telephone orders received.
[2022-03-03 19:00] VITALS: BP 133/84
[2022-03-03] MEDS: MORPHINE SULFATE 4 MG/ML INJ. IV PRN (20:32)
[2022-03-03 23:00] VITALS: BP 147/75
[2022-03-04] MEDS: MORPHINE SULFATE 4 MG/ML INJ. IV PRN ×4 (02:55→22:09)
[2022-03-04 03:00] VITALS: BP 146/78
[2022-03-04] MEDS ORDERED: DEXTROSE 50% 25 GM / 50ML DISP.SYRIN. IV ONE (03:41)
[2022-03-04] MEDS ORDERED: IV DEXTROSE 5% 250 ML BAG. IV PRN ×2 (03:45→08:45)
[2022-03-04] MEDS ORDERED: DEXTROSE 50% 25 GM / 50ML DISP.SYRIN. IV PRN ×2 (03:45→08:45)
[2022-03-04 03:47] LABS: BASO % 0 % (0-3); EOS # 0.9 x10^3/uL (0.0-0.7); EOS % 12 % (0-3); HEMATOCRIT 32.8 % (39.0-53.0); HEMOGLOBIN 10.7 g/dL (13.0-17.5); LYMPH # 1.9 x10^3/uL (1.0-4.8); LYMPH % 26 % (24-48); MEAN CORPUSCULAR HEMOGLOBIN 27 pg (25-35); MEAN CORPUSCULAR HGB CONC 33 g/dL (31-37); MEAN CORPUSCULAR VOLUME 83 fL (79-100); MONO # 0.6 x10^3/uL (0.0-1.1); MONO % 9 % (0-9); NEUT # 3.9 x10^3/uL (1.8-7.7); NEUT % 53 % (31-73); PLATELET COUNT 257 x10^3/uL (140-400); RED BLOOD COUNT 3.96 x10^6/uL (4.30-5.70); RED CELL DISTRIBUTION WIDTH 19.4 % (11.5-14.5); WHITE BLOOD COUNT 7.3 x10^3/uL (4.0-11.0)
[2022-03-04 04:11] LABS: ALBUMIN/GLOBULIN RATIO 0.6 (1.0-1.7); CREATININE 0.5 mg/dL (0.7-1.3); GFR 207.4; POTASSIUM 3.6 mmol/L (3.5-5.1); TOTAL BILIRUBIN 0.3 mg/dL (0.2-1.0); TOTAL PROTEIN 5.1 g/dL (6.4-8.2)
[2022-03-04] MEDS: oxyCODONE/APAP 10/325 1 TAB TABLET PO PRN ×5 (04:14→20:38)
[2022-03-04 07:30] VITALS: BP 146/82
[2022-03-04] MEDS: ASPIRIN CHEWABLE 81 MG TABLET. PO SCH (07:55)
[2022-03-04] MEDS: FAMOTIDINE 20 MG TABLET. PO SCH ×2 (07:55→20:39)
[2022-03-04] MEDS: LIPASE/PROTEAS/AMYLAS 10/32/42 CAPSULE.DR. PO SCH ×3 (07:55→16:16)
[2022-03-04] MEDS: FINASTERIDE 5 MG TABLET. PO SCH (07:56)
[2022-03-04] MEDS: PREGABALIN 75 MG CAPSULE PO SCH ×2 (07:56→20:39)
[2022-03-04] MEDS: LOSARTAN POTASSIUM 50 MG TABLET. PO SCH (07:56)
[2022-03-04] MEDS: COLESTIPOL HCL 1 GM TABLET PO SCH ×2 (07:57→22:08)
[2022-03-04] MEDS: INSULIN LISPRO 300 UNITS/3 ML VIAL. SQ SCH ×3 (08:00→17:21)
[2022-03-04] MEDS: VANCOMYCIN 125 MG/2.5 ML ORAL SOLUTION. PO SCH ×4 (08:21→20:39)
[2022-03-04] MEDS: INSULIN GLARGINE SYRINGE. SQ SCH ×2 (08:45→20:39)
--- NOTE | 2022-03-04 09:18 | PN ---
DATE: 03/04/2022 SUBJECTIVE: The patient is resting, slightly propped up in bed, eating his breakfast comfortably, in no apparent distress. He is on room air, maintaining his oxygen saturation at 97%. He continued to complain of pain, although he seemed to be very comfortable. He is already on 10 mg of oxycodone every 4 hours and morphine 4 mg IV every 6 hours. PHYSICAL EXAMINATION: GENERAL: On examining him, he looked well and was clearly in no apparent respiratory distress, pale, but no jaundice, cyanosis or thyromegaly. No jugular venous distention. No limb edema. VITAL SIGNS: His heart rate is 90, blood pressure 146/78, temperature was 98.4, respiratory rate 20, and oxygen saturation was 100%. HEAD, EYES, EARS, NOSE, AND THROAT: Normocephalic, atraumatic. NECK: Supple. HEART: Showed normal first and second heart sounds. No gallop or murmur. CHEST: Shows central trachea, equal bilateral chest expansion, air entry, vesicular breath sounds. I could not appreciate any crepitation or rhonchi. ABDOMEN: Distended, soft, nontender. NEUROLOGIC: He was grossly intact. His intake and output was incompletely recorded. LABORATORY DATA: Showed a white cell count 7.3, hemoglobin 10.7, hematocrit 32.8, MCV 83 and platelet count 257,000 with normal manual differential. His chemistry showed a serum sodium 142, potassium 3.6, chloride 109, bicarbonate 26, anion gap of 7, BUN 9, creatinine was 0.5. Estimated GFR was 107. His blood sugar was 64. His calcium was 8. Total bilirubin, AST, ALT were normal. Alkaline phosphatase slightly elevated. Total protein 5.1, albumin 2. ASSESSMENT: 1. Recurrent pneumothorax despite placement of endobronchial valve at [facility]. The procedure apparently was successful and he was subsequently discharged home after removal of chest tube, although he has right sided pneumothorax. He is not short of breath and his oxygen saturation is 97%. 2. Chronic obstructive pulmonary disease and continued tobacco use. 3. Chronic Clostridium difficile colitis. 4. Chronic narcotic dependence with withdrawal. 5. Type 2 diabetes mellitus that is poorly controlled. 6. Moderate protein-calorie malnutrition. PLAN: To continue with vancomycin orally for C. difficile colitis. I cut down his Lantus to 14 units and switch him to insulin sliding scale before meals. Continue with pain management. He will have another chest x-ray done today. We have already consulted the rater associate. KOKO DR: Edwige TID: [id number]
--- NOTE | 2022-03-04 10:07 | EKG ---
[facility] [address] [place] [address] Test Date: 2022-03-02 Test Time: 17:40:00 Pat Name: SARAN CLARK Department: Room: 424 Gender: M [employer]: : 1965 Requested By: KIM Amaya Number: [id number] Reading MD: James Tovar Measurements Intervals [place] Rate: 65 P: 59 ND: 132 QRS: 49 QRSD: 82 T: 65 QT: 406 QTc: 423 Interpretive Statements SINUS RHYTHM LOW LIMB LEAD VOLTAGE Electronically Signed On 03-06-2022 18:37:45 CDT by James Tovar
--- NOTE | 2022-03-04 10:26 | RAD ---
EXAM: XR CHEST 1V 03/04/2022 8:41 AM CLINICAL INDICATION: Pneumothorax COMPARISON: Chest radiograph 03/02/2022 TECHNIQUE: AP upright view of the chest FINDINGS: Heart is normal in size. Right endobronchial valves are redemonstrated. The right apicolat eral pneumothorax has mildly decreased, now small. There is a tiny right pleural effusion, unchanged. The left lung is clear. IMPRESSION: Mildly decreased, small right apicolateral pneumothorax. Electronically signed by: Marleny Strauss MD (03/04/2022 10:23 AM) [id number]
[2022-03-04 11:02] VITALS: BP 154/86
--- NOTE | 2022-03-04 11:05 | PDOC ---
PULMONARY PROGRESS NOTES DATE: 03/04/22 TIME: 11:02 Subjective Denies any shortness of breath. Remains on room air. Vitals Vital Signs Date Time Temp Pulse Resp B/P (MAP) Pulse Ox O2 Delivery O2 Flow Rate FiO2 03/04/22 10:23 16 97 Room Air 03/04/22 07:56 90 146/78 03/04/22 07:30 98.4 98.4 General: Alert, No acute distress Lungs: Other (Decreased breath sounds bilaterally) Cardiovascular: S1, Other Abdomen: Soft Extremities: No Edema Labs Laboratory Tests Test 03/02/22 18:20 03/02/22 23:53 03/03/22 08:14 03/03/22 12:03 White Blood Count 8.5 x10^3/uL (4.0-11.0) Red Blood Count 4.48 x10^6/uL (4.30-5.70) Hemoglobin 12.3 g/dL (13.0-17.5) Hematocrit 37.8 % (39.0-53.0) Mean Corpuscular Volume 84 fL (79-100) Mean Corpuscular Hemoglobin 28 pg (25-35) Mean Corpuscular Hemoglobin Concent 33 g/dL (31-37) Red Cell Distribution Width 20.1 % (11.5-14.5) Platelet Count 307 x10^3/uL (140-400) Neutrophils (%) (Auto) 71 % (31-73) Lymphocytes (%) (Auto) 15 % (24-48) Monocytes (%) (Auto) 8 % (0-9) Eosinophils (%) (Auto) 5 % (0-3) Basophils (%) (Auto) 1 % (0-3) Neutrophils # (Auto) 6.0 x10^3/uL (1.8-7.7) Lymphocytes # (Auto) 1.3 x10^3/uL (1.0-4.8) Monocytes # (Auto) 0.7 x10^3/uL (0.0-1.1) Eosinophils # (Auto) 0.4 x10^3/uL (0.0-0.7) Basophils # (Auto) 0.1 x10^3/uL (0.0-0.2) Platelet Estimate Adequate (ADEQUATE) Poikilocytosis Slight Anisocytosis Mod Schistocytes Occ Sodium Level 140 mmol/L (136-145) Potassium Level 4.2 mmol/L (3.5-5.1) Chloride Level 104 mmol/L (98-107) Carbon Dioxide Level 30 mmol/L (21-32) Anion Gap 6 (6-14) Blood Urea Nitrogen 9 mg/dL (8-26) Creatinine 0.9 mg/dL (0.7-1.3) Estimated GFR (Cockcroft-Gault) 105.2 BUN/Creatinine Ratio 10 (6-20) Glucose Level 399 mg/dL (70-99) Calcium Level 8.2 mg/dL (8.5-10.1) Total Bilirubin 0.4 mg/dL (0.2-1.0) Aspartate Amino Transf (AST/SGOT) 42 U/L (15-37) Alanine Aminotransferase (ALT/SGPT) 49 U/L (16-63) Alkaline Phosphatase 187 U/L (46-116) Total Protein 6.2 g/dL (6.4-8.2) Albumin 2.5 g/dL (3.4-5.0) Albumin/Globulin Ratio 0.7 (1.0-1.7) Glucose (Fingerstick) 410 mg/dL (70-99) 119 mg/dL (70-99) 62 mg/dL (70-99) Test 03/03/22 16:45 03/04/22 02:40 03/04/22 03:36 03/04/22 04:03 Glucose (Fingerstick) 210 mg/dL (70-99) 31 mg/dL (70-99) 146 mg/dL (70-99) White Blood Count 7.3 x10^3/uL (4.0-11.0) Red Blood Count 3.96 x10^6/uL (4.30-5.70) Hemoglobin 10.7 g/dL (13.0-17.5) Hematocrit 32.8 % (39.0-53.0) Mean Corpuscular Volume 83 fL (79-100) Mean Corpuscular Hemoglobin 27 pg (25-35) Mean Corpuscular Hemoglobin Concent 33 g/dL (31-37) Red Cell Distribution Width 19.4 % (11.5-14.5) Platelet Count 257 x10^3/uL (140-400) Neutrophils (%) (Auto) 53 % (31-73) Lymphocytes (%) (Auto) 26 % (24-48) Monocytes (%) (Auto) 9 % (0-9) Eosinophils (%) (Auto) 12 % (0-3) Basophils (%) (Auto) 0 % (0-3) Neutrophils # (Auto) 3.9 x10^3/uL (1.8-7.7) Lymphocytes # (Auto) 1.9 x10^3/uL (1.0-4.8) Monocytes # (Auto) 0.6 x10^3/uL (0.0-1.1) Eosinophils # (Auto) 0.9 x10^3/uL (0.0-0.7) Basophils # (Auto) 0.0 x10^3/uL (0.0-0.2) Sodium Level 142 mmol/L (136-145) Potassium Level 3.6 mmol/L (3.5-5.1) Chloride Level 109 mmol/L (98-107) Carbon Dioxide Level 26 mmol/L (21-32) Anion Gap 7 (6-14) Blood Urea Nitrogen 9 mg/dL (8-26) Creatinine 0.5 mg/dL (0.7-1.3) Estimated GFR (Cockcroft-Gault) 207.4 BUN/Creatinine Ratio 18 (6-20) Glucose Level 64 mg/dL (70-99) Calcium Level 8.0 mg/dL (8.5-10.1) Total Bilirubin 0.3 mg/dL (0.2-1.0) Aspartate Amino Transf (AST/SGOT) 32 U/L (15-37) Alanine Aminotransferase (ALT/SGPT) 43 U/L (16-63) Alkaline Phosphatase 147 U/L (46-116) Total Protein 5.1 g/dL (6.4-8.2) Albumin 2.0 g/dL (3.4-5.0) Albumin/Globulin Ratio 0.6 (1.0-1.7) Test 03/04/22 07:24 03/04/22 07:52 Glucose (Fingerstick) 46 mg/dL (70-99) 58 mg/dL (70-99) Laboratory Tests Test 03/03/22 12:03 03/03/22 16:45 03/04/22 02:40 03/04/22 03:36 Glucose (Fingerstick) 62 mg/dL (70-99) 210 mg/dL (70-99) 31 mg/dL (70-99) White Blood Count 7.3 x10^3/uL (4.0-11.0) Red Blood Count 3.96 x10^6/uL (4.30-5.70) Hemoglobin 10.7 g/dL (13.0-17.5) Hematocrit 32.8 % (39.0-53.0) Mean Corpuscular Volume 83 fL (79-100) Mean Corpuscular Hemoglobin 27 pg (25-35) Mean Corpuscular Hemoglobin Concent 33 g/dL (31-37) Red Cell Distribution Width 19.4 % (11.5-14.5) Platelet Count 257 x10^3/uL (140-400) Neutrophils (%) (Auto) 53 % (31-73) Lymphocytes (%) (Auto) 26 % (24-48) Monocytes (%) (Auto) 9 % (0-9) Eosinophils (%) (Auto) 12 % (0-3) Basophils (%) (Auto) 0 % (0-3) Neutrophils # (Auto) 3.9 x10^3/uL (1.8-7.7) Lymphocytes # (Auto) 1.9 x10^3/uL (1.0-4.8) Monocytes # (Auto) 0.6 x10^3/uL (0.0-1.1) Eosinophils # (Auto) 0.9 x10^3/uL (0.0-0.7) Basophils # (Auto) 0.0 x10^3/uL (0.0-0.2) Sodium Level 142 mmol/L (136-145) Potassium Level 3.6 mmol/L (3.5-5.1) Chloride Level 109 mmol/L (98-107) Carbon Dioxide Level 26 mmol/L (21-32) Anion Gap 7 (6-14) Blood Urea Nitrogen 9 mg/dL (8-26) Creatinine 0.5 mg/dL (0.7-1.3) Estimated GFR (Cockcroft-Gault) 207.4 BUN/Creatinine Ratio 18 (6-20) Glucose Level 64 mg/dL (70-99) Calcium Level 8.0 mg/dL (8.5-10.1) Total Bilirubin 0.3 mg/dL (0.2-1.0) Aspartate Amino Transf (AST/SGOT) 32 U/L (15-37) Alanine Aminotransferase (ALT/SGPT) 43 U/L (16-63) Alkaline Phosphatase 147 U/L (46-116) Total Protein 5.1 g/dL (6.4-8.2) Albumin 2.0 g/dL (3.4-5.0) Albumin/Globulin Ratio 0.6 (1.0-1.7) Test 03/04/22 04:03 03/04/22 07:24 03/04/22 07:52 Glucose (Fingerstick) 146 mg/dL (70-99) 46 mg/dL (70-99) 58 mg/dL (70-99) Medications Active Scripts Medications Dose Route/Sig Max Daily Dose Days Date Category Ondansetron Odt (Ondansetron) 4 Mg Tab.rapdis 1 Tab PO PRN Q4-6HRS PRN 01/06/22 Rx Famotidine 20 Mg Tablet 20 Mg PO BID 10 12/31/21 Rx Colestid (Colestipol Hcl) 1 Gm Tablet 1 Gm PO BID@ 14 12/31/21 Rx Dificid (Fidaxomicin) 200 Mg Tablet 200 Mg PO BID 7 12/31/21 Rx Percocet 10-325 Mg Tablet (Oxycodone/Acetaminophen) 1 Each Tablet 1 Tab PO PRN Q4HRS PRN 10 12/31/21 Rx Zenpep 10,000 Units Capsule (Lipase/Protease/Amylase) 1 Each Capsule. 3 Cap PO TIDWMEALS 30 12/10/21 Rx Humalog (Insulin Lispro) 100 Unit/1 Ml Cartridge 6 Unit SQ TIDWMEALS 07/30/19 Reported Tresiba (Insulin Degludec) 100 Unit/1 Ml Vial 18 Unit SQ HS 07/30/19 Reported Aspirin 81 Mg Tab.chew 1 Tab PO DAILY 02/23/19 Reported Finasteride 5 Mg Tablet 1 Tab PO DAILY 02/23/19 Reported Losartan Potassium 50 Mg Tablet 50 Mg PO DAILY 02/23/19 Reported Lyrica (Pregabalin) 300 Mg Capsule 1 Cap PO BID 02/23/19 Reported Ambien (Zolpidem Tartrate) 10 Mg Tablet 10 Mg PO PRN QHS PRN 02/23/19 Reported Comments Chest x-ray reviewed 03/04/2022 and compared with 03/03/2022. Improving right apical pneumothorax Impression . 1. Recurrent pneumothorax. This is a patient who had a spontaneous right sided pneumothorax last month and had a prolonged hospital stay with persistent air leak. He was subsequently transferred to [facility] for endobronchial valve. It was successful and he was subsequently discharged home after removal of chest tube. He now has a recurrent right sided pneumothorax. Clinically asymptomatic. Currently on room air. Pneumothorax is approximately 15%. Now improving. 3. Tobacco use, likely underlying chronic obstructive pulmonary disease. 4. Previous abnormal CT chest with right sided apical bleb, chronic obstructive pulmonary disease and some mucus plugging in the right upper lobe along with pleural thickening. 5. Clostridium difficile colitis. 6. Chronic narcotic dependence with withdrawal. 7. Moderate protein-calorie malnutrition. Plan . 1. Discussed with Dr. Dawson, interventional radiology and the patient. At this point, he is asymptomatic. Repeat chest x-ray today showing improvement in right apical pneumothorax. We will continue to monitor with another chest x-ray in 24 hours. 2. No need for any intervention at present. 3. If pneumothorax worsens in the future, patient will need surgical correction 4. Pain control per PCP. 5. Repeat chest x-ray in next [address] Dawson. JACK COOPER MD Mar 04, 2022 11:05
[2022-03-04] MEDS: LACTOBACILLUS RHAMNOSUS GG 1 CAPSULE. PO SCH ×2 (12:15→20:39)
[2022-03-04 14:49] VITALS: BP 147/92
[2022-03-04 19:00] VITALS: BP 143/88
[2022-03-04] MEDS ORDERED: INSULIN GLARGINE SYRINGE. SQ SCH (21:00)
[2022-03-04] MEDS: ZOLPIDEM 5 MG TABLET. PO PRN (22:08)
[2022-03-04 23:00] VITALS: BP 157/76
[2022-03-05] MEDS: oxyCODONE/APAP 10/325 1 TAB TABLET PO PRN ×4 (00:56→16:23)
[2022-03-05 02:53] VITALS: BP 148/69
[2022-03-05] MEDS: MORPHINE SULFATE 4 MG/ML INJ. IV PRN ×2 (04:14→13:17)
--- NOTE | 2022-03-05 06:13 | NUR ---
Patient request blood sugar check, states "I feel low even though I've been tearing up the peanut butter and crackers." FSBS checked and 374. Patient stated "Check it in a couple hours and give insulin if needed. " Informed Patient that blood sugar would be checked at 0800. Patient states "That'll be good."
[2022-03-05 07:00] VITALS: BP 115/82
--- NOTE | 2022-03-05 08:08 | PDOC ---
PULMONARY PROGRESS NOTES DATE: 03/05/22 TIME: 08:07 Subjective Patient now more short of air, on room air no chest pain or pressure Vitals Vital Signs Date Time Temp Pulse Resp B/P (MAP) Pulse Ox O2 Delivery O2 Flow Rate FiO2 03/05/22 07:00 91 16 115/82 (93) 97 Room Air 03/05/22 02:53 98.0 98.0 ROS: No Nausea, No Chest Pain, No Abdominal Pain, No Increase Cough General: Alert, No acute distress Lungs: Other (Decreased breath sounds bilaterally) Cardiovascular: S1, Other Abdomen: Soft Extremities: No Edema Labs Laboratory Tests Test 03/03/22 08:14 03/03/22 12:00 03/03/22 12:03 03/03/22 16:45 Glucose (Fingerstick) 119 mg/dL (70-99) 62 mg/dL (70-99) 210 mg/dL (70-99) Clostridium difficile Toxin (PCR) Negative (NEGATIVE) Test 03/04/22 02:40 03/04/22 03:36 03/04/22 04:03 03/04/22 07:24 White Blood Count 7.3 x10^3/uL (4.0-11.0) Red Blood Count 3.96 x10^6/uL (4.30-5.70) Hemoglobin 10.7 g/dL (13.0-17.5) Hematocrit 32.8 % (39.0-53.0) Mean Corpuscular Volume 83 fL (79-100) Mean Corpuscular Hemoglobin 27 pg (25-35) Mean Corpuscular Hemoglobin Concent 33 g/dL (31-37) Red Cell Distribution Width 19.4 % (11.5-14.5) Platelet Count 257 x10^3/uL (140-400) Neutrophils (%) (Auto) 53 % (31-73) Lymphocytes (%) (Auto) 26 % (24-48) Monocytes (%) (Auto) 9 % (0-9) Eosinophils (%) (Auto) 12 % (0-3) Basophils (%) (Auto) 0 % (0-3) Neutrophils # (Auto) 3.9 x10^3/uL (1.8-7.7) Lymphocytes # (Auto) 1.9 x10^3/uL (1.0-4.8) Monocytes # (Auto) 0.6 x10^3/uL (0.0-1.1) Eosinophils # (Auto) 0.9 x10^3/uL (0.0-0.7) Basophils # (Auto) 0.0 x10^3/uL (0.0-0.2) Sodium Level 142 mmol/L (136-145) Potassium Level 3.6 mmol/L (3.5-5.1) Chloride Level 109 mmol/L (98-107) Carbon Dioxide Level 26 mmol/L (21-32) Anion Gap 7 (6-14) Blood Urea Nitrogen 9 mg/dL (8-26) Creatinine 0.5 mg/dL (0.7-1.3) Estimated GFR (Cockcroft-Gault) 207.4 BUN/Creatinine Ratio 18 (6-20) Glucose Level 64 mg/dL (70-99) Calcium Level 8.0 mg/dL (8.5-10.1) Total Bilirubin 0.3 mg/dL (0.2-1.0) Aspartate Amino Transf (AST/SGOT) 32 U/L (15-37) Alanine Aminotransferase (ALT/SGPT) 43 U/L (16-63) Alkaline Phosphatase 147 U/L (46-116) Total Protein 5.1 g/dL (6.4-8.2) Albumin 2.0 g/dL (3.4-5.0) Albumin/Globulin Ratio 0.6 (1.0-1.7) Glucose (Fingerstick) 31 mg/dL (70-99) 146 mg/dL (70-99) 46 mg/dL (70-99) Test 03/04/22 07:52 03/04/22 11:26 03/04/22 16:56 03/04/22 20:29 Glucose (Fingerstick) 58 mg/dL (70-99) 224 mg/dL (70-99) 167 mg/dL (70-99) 41 mg/dL (70-99) Test 03/04/22 21:01 03/04/22 21:30 03/05/22 06:12 03/05/22 07:46 Glucose (Fingerstick) 56 mg/dL (70-99) 143 mg/dL (70-99) 374 mg/dL (70-99) 388 mg/dL (70-99) Laboratory Tests Test 03/04/22 11:26 03/04/22 16:56 03/04/22 20:29 03/04/22 21:01 Glucose (Fingerstick) 224 mg/dL (70-99) 167 mg/dL (70-99) 41 mg/dL (70-99) 56 mg/dL (70-99) Test 03/04/22 21:30 03/05/22 06:12 03/05/22 07:46 Glucose (Fingerstick) 143 mg/dL (70-99) 374 mg/dL (70-99) 388 mg/dL (70-99) Medications Active Scripts Medications Dose Route/Sig Max Daily Dose Days Date Category Ondansetron Odt (Ondansetron) 4 Mg Tab.rapdis 1 Tab PO PRN Q4-6HRS PRN 01/06/22 Rx Famotidine 20 Mg Tablet 20 Mg PO BID 10 12/31/21 Rx Colestid (Colestipol Hcl) 1 Gm Tablet 1 Gm PO BID@ 14 12/31/21 Rx Dificid (Fidaxomicin) 200 Mg Tablet 200 Mg PO BID 7 12/31/21 Rx Percocet 10-325 Mg Tablet (Oxycodone/Acetaminophen) 1 Each Tablet 1 Tab PO PRN Q4HRS PRN 10 12/31/21 Rx Zenpep 10,000 Units Capsule (Lipase/Protease/Amylase) 1 Each Capsule. 3 Cap PO TIDWMEALS 30 12/10/21 Rx Humalog (Insulin Lispro) 100 Unit/1 Ml Cartridge 6 Unit SQ TIDWMEALS 07/30/19 Reported Tresiba (Insulin Degludec) 100 Unit/1 Ml Vial 18 Unit SQ HS 07/30/19 Reported Aspirin 81 Mg Tab.chew 1 Tab PO DAILY 02/23/19 Reported Finasteride 5 Mg Tablet 1 Tab PO DAILY 02/23/19 Reported Losartan Potassium 50 Mg Tablet 50 Mg PO DAILY 02/23/19 Reported Lyrica (Pregabalin) 300 Mg Capsule 1 Cap PO BID 02/23/19 Reported Ambien (Zolpidem Tartrate) 10 Mg Tablet 10 Mg PO PRN QHS PRN 02/23/19 Reported Comments Chest x-ray reviewed 03/04/2022 and compared with 03/03/2022. Improving right apical pneumothorax Impression . 1. Recurrent pneumothorax. This is a patient who had a spontaneous right sided pneumothorax last month and had a prolonged hospital stay with persistent air leak. He was subsequently transferred to [facility] for endobronchial valve. It was successful and he was subsequently discharged home after removal of chest tube. He now has a recurrent right sided pneumothorax. Clinically asymptomatic. Currently on room air. Pneumothorax is approximately 15%. Now improving. 3. Tobacco use, likely underlying chronic obstructive pulmonary disease. 4. Previous abnormal CT chest with right sided apical bleb, chronic obstructive pulmonary disease and some mucus plugging in the right upper lobe along with pleural thickening. 5. Clostridium difficile colitis. 6. Chronic narcotic dependence with withdrawal. 7. Moderate protein-calorie malnutrition. Plan . Updated 03/05 Chest x-ray reviewed No change If x-ray is the same in the morning, may discharge home with no intervention, follow-up in the office 03/[address] Dawson, interventional radiology and the patient. At this point, he is asymptomatic. Repeat chest x-ray today showing improvement in right apical pneumothorax. We will continue to monitor with another chest x-ray in 24 hours. 2. No need for any intervention at present. 3. If pneumothorax worsens in the future, patient will need surgical correction 4. Pain control per PCP. 5. Repeat chest x-ray in next [address] Dawson. JUWAN ISSA MD Mar 05, 2022 08:08
[2022-03-05 08:30] LABS: CALCIUM 8.7 mg/dL (8.5-10.1); CREATININE 0.7 mg/dL (0.7-1.3); GFR 140.7; POTASSIUM 5.1 mmol/L (3.5-5.1)
--- NOTE | 2022-03-05 08:30 | NUR ---
Face to face with Dr Mehta, advised of patients am blood sugar at 388 and needing additional insulin dose. He states to give pt 5 additional units with his sliding scale for a total of 10 units of lispro. VO placed.
[2022-03-05] MEDS: FINASTERIDE 5 MG TABLET. PO SCH (09:00)
[2022-03-05] MEDS ORDERED: INSULIN LISPRO 300 UNITS/3 ML VIAL. SQ ONE (09:00)
[2022-03-05] MEDS: FAMOTIDINE 20 MG TABLET. PO SCH (09:58)
[2022-03-05] MEDS: LACTOBACILLUS RHAMNOSUS GG 1 CAPSULE. PO SCH (09:58)
[2022-03-05] MEDS: LIPASE/PROTEAS/AMYLAS 10/32/42 CAPSULE.DR. PO SCH ×2 (09:58→13:17)
[2022-03-05] MEDS: PREGABALIN 75 MG CAPSULE PO SCH (09:58)
[2022-03-05] MEDS: COLESTIPOL HCL 1 GM TABLET PO SCH (09:59)
[2022-03-05] MEDS: LOSARTAN POTASSIUM 50 MG TABLET. PO SCH (09:59)
[2022-03-05] MEDS: ASPIRIN CHEWABLE 81 MG TABLET. PO SCH (09:59)
[2022-03-05] MEDS: VANCOMYCIN 125 MG/2.5 ML ORAL SOLUTION. PO SCH ×2 (09:59→13:17)
[2022-03-05] MEDS: INSULIN LISPRO 300 UNITS/3 ML VIAL. SQ SCH (10:04)
[2022-03-05] MEDS ORDERED: IV DEXTROSE 5% 250 ML BAG. IV PRN (10:30)
[2022-03-05] MEDS ORDERED: INSULIN GLARGINE SYRINGE. SQ SCH (10:30)
[2022-03-05] MEDS ORDERED: DEXTROSE 50% 25 GM / 50ML DISP.SYRIN. IV PRN (10:30)
--- NOTE | 2022-03-05 10:58 | NUR ---
I have read the assessment documentation by SN Chritsina and concur. Mirella Bacon RN [facility]
[2022-03-05 11:00] VITALS: BP 156/81
--- NOTE | 2022-03-05 11:42 | NUR ---
I assisted student with IV placement. Aseptic technique. Patient tolerated well. Education given. Mirella Archer RN [facility]
[2022-03-05] MEDS ORDERED: INSULIN LISPRO 300 UNITS/3 ML VIAL. SQ SCH (12:00)
--- NOTE | 2022-03-05 14:09 | RAD ---
EXAM: XR CHEST 1V 03/05/2022 8:35 AM CLINICAL INDICATION: Pneumothorax COMPARISON: Chest radiograph 03/04/2022 TECHNIQUE: AP upright view of the chest FINDINGS: The heart is normal in size. There are right endobronchial valves. The small right apicolat eral pneumothorax has slightly decreased in size. There is unchanged right perihilar atelectasis. Dec reased, trace right pleural effusion. The left lung is clear. IMPRESSION: Slightly decreased small right pneumothorax. Electronically signed by: Marleny Strauss MD (03/05/2022 2:06 PM) [id number]
[2022-03-05 15:00] VITALS: BP 149/93
--- NOTE | 2022-03-05 15:14 | NUR ---
pt requesting an order for ativan for anxiety, Dr Dawson paged and VO given for Ativan 0.5mg every 8 hours, readback verified.
[2022-03-05] MEDS ORDERED: LORazepam 0.5 MG TABLET PO PRN (15:15)
--- NOTE | 2022-03-05 19:04 | NUR ---
advised that pt would like to leave AMA but did not want to sign the form, taken care of by the charge nurse Thania KNAPP and he would like to speak to this nurse privately. He states he only received his pain medication once today and he felt ignored. advised patient this was not the case and advised him of the times he did receive his pain medication and advised the patient that he was not being ignored. advised the pt when he pressed his light the message was received but this nurse was tending to another patient and the person answering the light was not sure when the nurse was available. advised pt this nurse would be going to speak with security. iv discontinued and pt awaiting cab. pt ambulated off unit with Tiffani CERVANTES to ER for cahb ride.
--- NOTE | 2022-03-06 03:56 | PN ---
DATE: 03/05/2022 SUBJECTIVE: The patient continue as usual to complain of pain that is extremely disproportionate to what he has. He is already on 10 mg of oxycodone every 4 hours and morphine 4 mg IV every 6 hours, continued to have loose bowel movement. His blood sugar has risen this morning. When I saw him this morning, it was 365. PHYSICAL EXAMINATION: GENERAL: When I examined him, he looked well and was clearly in no apparent respiratory distress. No pallor, jaundice, cyanosis or thyromegaly. No jugular venous distention. No lower limb edema. VITAL SIGNS: His heart rate was 91, blood pressure was 115/82, temperature was 98, respiratory rate was 16 and oxygen saturation was 97% on room air. HEAD, EYES, EARS, NOSE, AND THROAT: Normocephalic, atraumatic. NECK: Supple. HEART: Normal first and second heart sounds. No gallop or murmur. CHEST: Shows central trachea. Some subcutaneous emphysema on the right side. Equal bilateral chest expansion, air entry, vesicular breath sounds. I could not really appreciate any crepitation or rhonchi. ABDOMEN: Soft, nontender. NEUROLOGIC: He is grossly intact. His intake and output were incompletely recorded. LABORATORY DATA: This morning showed a white cell count of 7.3, hemoglobin 11, hematocrit 33, MCV 83 and platelet count 257,000. His chemistry showed a serum sodium 136, potassium 5.1, chloride 103, bicarbonate 30, anion gap of 3, BUN 9, creatinine 0.7. Estimated GFR was 140 mL per minute. His glucose 365 and calcium was 8.7. We did send stool for C. diff toxin by PCR was negative. ASSESSMENT: 1. Recurrent pneumothorax despite placement of endobronchial valve at [facility]. The procedure apparently was successful and he was subsequently discharged home after removal of chest tube, although he came back with right-sided pneumothorax. The patient is not really short of breath. His oxygen saturation is 97% and respiratory rate was only 16. 2. Chronic obstructive pulmonary disease with continued tobacco use. 3. Chronic Clostridium difficile colitis. The patient claims that he continues to have diarrhea, although his stool this time for Clostridium difficile was negative. 4. Chronic narcotic dependence with withdrawal. 5. Type 2 diabetes mellitus that is poorly controlled. 6. Moderate protein-calorie malnutrition. PLAN: My plan is to continue just his Lantus insulin and increase his sliding scale to a higher dose. Meanwhile, he does have daily chest x-ray to see if there is any improvement in his pneumothorax . ____ nut sifter is following him. PERLITA/CAITIE DR: Edwige TID: [id number]
== END 2022-03-05 19:34 | disposition left against medical advice (07) | DRG 200 ==
LOC: ER 16:35 → 4 NORTH 20:57
PROVIDERS: ADMIT Internal Medicine; ATTEND Internal Medicine
DX: J93.11 Primary spontaneous pneumothorax (principal); E44.0 Moderate protein-calorie malnutrition; A04.72 Enterocolitis due to Clostridium difficile, not specified as recurrent; F11.23 Opioid dependence with withdrawal; J98.11 Atelectasis; K86.1 Other chronic pancreatitis; E11.65 Type 2 diabetes mellitus with hyperglycemia; F12.90 Cannabis use, unspecified, uncomplicated; F17.200 Nicotine dependence, unspecified, uncomplicated; I10 Essential (primary) hypertension; Z80.7 Family history of other malignant neoplasms of lymphoid, hematopoietic and related tissues; Z98.1 Arthrodesis status; F32.A Depression, unspecified; Z88.8 Allergy status to other drugs, medicaments and biological substances; J43.9 Emphysema, unspecified; Z53.29 Procedure and treatment not carried out because of patient's decision for other reasons
CPT/HCPCS: 36415; 71045; 80048; 80053; 82962; 85025; 87493; 93005; 96361; 96372; 96374; J1170; J1815; J2270; J7030; 99285-25; G0378

== ENCOUNTER 2022-04-10 19:33 | Emergency (ER) | payer MEDICARE, MEDICAID ==
[~2022-04-10] VITALS: Ht 165.1 cm; Wt 61.4 kg
--- NOTE | 2022-04-10 19:55 | PHYS DOC ---
Past Medical History Past Medical History: Depression, Diabetes-Type II, Hypertension, Pancreatitis, Other Additional Past Medical Histor: C-DIFF, COLLAPSED LUNG Past Surgical History: Other Additional Past Surgical Histo: Whipple, scar tissue repair, NECK FUSIONS Smoking Status: Current Every Day Smoker Alcohol Use: None Drug Use: None General Adult EDM: Chief Complaint: MECHANICAL FALL HPI: HPI: 57-year-old male, status post recent spontaneous pneumothorax, hx of right-sided large bore chest tube, recently discharged 1 week ago, type 2 diabetes, hypertension, chronic pancreatitis, status post Whipple's procedure, depression, C. difficile colitis, on oral vancomycin, opioid dependence, presents with ground-level fall. Accidental fall. As he was reaching for something in between his couch and fell forward. Complaining of pain of the left hip that radiates up into his back and his head. No other extremity pain. No loss of consciousness or head trauma. Review of Systems: Review of Systems: Constitutional: Denies fever or chills. [] Eyes: Denies change in visual acuity. [] HENT: Denies nasal congestion or sore throat. [] Respiratory: Denies cough or shortness of breath. [] Cardiovascular: Denies chest pain or edema. [] GI: Denies abdominal pain, nausea, vomiting, bloody stools or diarrhea. [] : Denies dysuria. [] Musculoskeletal: + back pain and hip pain, no joint pain. [] Integument: Denies rash. [] Neurologic: Denies headache, focal weakness or sensory changes. [] Endocrine: Denies polyuria or polydipsia. [] Lymphatic: Denies swollen glands. [] Psychiatric: Denies depression or anxiety. [] Heart Score: C/O Chest Pain: No Risk Factors: Risk Factors: DM, Current or recent (<one month) smoker, HTN, HLP, family history of CAD, obesity. Risk Scores: Score 0 - 3: 2.5% MACE over next 6 weeks - Discharge Home Score 4 - 6: 20.3% MACE over next 6 weeks - Admit for Clinical Observation Score 7 - 10: 72.7% MACE over next 6 weeks - Early Invasive Strategies Allergies: Allergies: Allergies Coded Allergies Type Severity Reaction Last Updated Verified acetaminophen Allergy Intermediate 12/28/21 Yes fentanyl Allergy Intermediate Hives 12/28/21 Yes ketorolac Allergy Intermediate Hives 12/28/21 Yes tramadol Allergy Intermediate Hives 12/28/21 Yes Physical Exam: PE: Constitutional: elderly male, Well developed, well nourished, no acute distress, non-toxic appearance. [] HENT: Normocephalic, atraumatic, bilateral external ears normal, oropharynx moist, no oral exudates, nose normal. [] Eyes: PERRLA, EOMI, conjunctiva normal, no discharge. [] Neck: in c-collar, + minimal midline tenderness, no stepoffs, supple, no stridor. [] Cardiovascular:Heart rate regular rhythm, no murmur [] Lungs & Thorax: Bilateral breath sounds clear to auscultation [] Abdomen: midline ex-lap scar, Bowel sounds normal, soft, no tenderness, no masses, no pulsatile masses. [] Skin: Warm, dry, no erythema, no rash. [] Back: + mild midline diffuse tenderness, no stepoffs, no CVA tenderness. [] Extremities: No tenderness, no cyanosis, no clubbing, ROM intact, no edema. [] Neurologic: Alert and oriented X 3, normal motor function, normal sensory function, no focal deficits noted. [] Psychologic: Affect normal, judgement normal, mood normal. [] Current Patient Data: Vital Signs: Vital Signs Date Time Temp Pulse Resp B/P (MAP) Pulse Ox O2 Delivery O2 Flow Rate FiO2 04/10/22 19:35 98.3 77 17 177/94 (121) 98 Room Air 98.3 EKG: EKG: [] Radiology/Procedures: Radiology/Procedures: [] Course & Med Decision Making: Course & Med Decision Making Pertinent Labs and Imaging studies reviewed. (See chart for details) Additional Social History: PMD from non-affiliated facility. Patient Lives at home. Family History: Non-pertinent to today's complaint. Nursing Notes Reviewed Previous Medical Records requested via [facility] Web: Reviewed by me. EMERGENT LABS AND DIAGNOSTIC STUDIES: Results were reviewed and interpreted by me as below PROCEDURE: CT HEAD AND CERVICAL SPINE WO, CT THORACIC SPINE WO, CT LUMBAR SPINE WO IMPRESSION: 1. No acute intracranial abnormality. 2. No acute osseous abnormality of the cervical, thoracic, or lumbar spine. 3. Unchanged appearance of interbody fusion at C4-C5 and degenerative disc disease in the cervical spine with canal stenosis at C3-C4. PROCEDURE: PELVIS EXAM: XR PELVIS 1-2V 04/10/2022 8:16 PM IMPRESSION: No acute osseous abnormality. PROCEDURE: PORTABLE CHEST 1V IMPRESSION: No acute cardiopulmonary process. EMERGENCY DEPARTMENT COURSE/ MEDICAL DECISION MAKING: The patient was placed on a cardiac rn, continuous pulse oximetry and was given supplemental oxygen. I examined the patient, evaluated and addressed patient's chief complaint. Mechanical fall complaining of back and hip pain. Nonfocal exam. Noted hx of narcotic dependence. CT Head/C-spine, T/L spine negative. C collar cleared. Neuro intact. Vitals wnl. Noted hyperglycemia 400s, poor insulin compliance. Corrected with NS bolus and IM insulin. Recheck 200s. The patient was treated with Ivel, morphine. On re-assessment, patient feels much better. Stable for dc home with routine pmd f/u. The patient understands that todays Emergency Department evaluation does not represent a comprehensive medical workup, and it is impossible to diagnose all possible illnesses from a single Emergency Department visit. The patient verbalized understanding that it is absolutely necessary to have follow-up with regular primary care physician within 1-2 days for more detailed workup and continued exam. I explained the findings and plan to the patient, who expressed verbal understanding and agreed with plan for discharge and follow up. The patient was given after care instructions and welcomed to return to the ED for re-evaluation in 8-12 hours, especially for any new or worsening symptoms. Patient's blood pressure was elevated (>120/80) but appears stable without evidence of end organ damage, malignant hypertension, hypertensive emergency or urgency. The patient was counseled about the risks of hypertension and urged to pursue outpatient monitoring and therapy within a week with their primary care physician. The patient was stable at the time of discharge. DIAGNOSTIC IMPRESSION: 1. Accidental fall without injury 2. DM 3. hyperglycemia DISPOSITION: Disposition: Discharge Home. Condition: Improved Follow-Up: PMD Prescriptions: None Return to the Emergency Department for new or worsening symptoms. Dragon Disclaimer: Dragon Disclaimer: This electronic medical record was generated, in whole or in part, using a voice recognition dictation system. Departure Departure Impression: Primary Impression: Accident due to mechanical fall without injury Additional Impressions: DM (diabetes mellitus) Hyperglycemia Disposition: 01 HOME / SELF CARE / HOMELESS Condition: STABLE Referrals: Katelin VIERA MD (PCP) STACIA MOORE MD April 10, 2022 19:55
[2022-04-10 20:09] VITALS: BP 177/87
[2022-04-10] MEDS ORDERED: IV NORMAL SALINE 1000ML BAG 1,000 ML IV ONE (20:15)
[2022-04-10] MEDS ORDERED: INSULIN REGULAR 100 UNIT/ML 3ML VIAL. IV ONE (20:15)
--- NOTE | 2022-04-10 20:56 | RAD ---
EXAM: CT head and cervical spine without contrast INDICATION: Ground-level fall, back pain, head and neck pain COMPARISON: CT abdomen and pelvis 01/06/[address] lumbar spine 12/06/2021. CT head and C-spine May 18 TECHNIQUE: Axial CT imaging through the head and cervical spine without intravenous contrast. Sagitta l and coronal reformats were obtained. CT thoracic and lumbar spine obtained without contrast. Alonzo l and sagittal reformats were obtained. One or more of the following individualized dose reduction techniques were utilized for this examinat ion: 1. Automated exposure control 2. Adjustment of the mA and/or kV according to patient size 3. Use of iterative reconstruction technique. FINDINGS: CT head: No intracranial hemorrhage, acute infarct, or mass lesion. The ventricles and sulci are within normal limits. Mcdonald-white matter differentiation is maintained. The skull is intact. Small amount of fluid in the right maxillary sinus. The remaining paranasal sinuses and mastoid air cells are clear. Globes and orbits are intact. CT cervical spine: No acute fracture. There is unchanged appearance of interbody fusion at C4-C5. There is 2 mm retrolis thesis of C3 on C4. Severe disc space narrowing at C3-C4. Mild disc space narrowing elsewhere. Promin ent anterior osteophytes at C3-C4 and C5-C6. TThere is a disc osteophyte complex and severe left unc overtebral joint proliferation at C3-C4 contributing to at least moderate canal narrowing and mild bi lateral foraminal narrowing. Mild canal narrowing at C4-C5 related to a bridging osseous fusion. Mild to moderate facet arthrosis at multiple levels. Prevertebral soft tissues normal. There is parasepta l emphysema in the lung apices. CT thoracic spine: No acute fracture. Alignment is normal. There is mild dextroscoliosis. There is mild disc space narro wing and degenerative endplate changes throughout the thoracic spine. Mild paraseptal emphysema in th e lungs. CT lumbar spine: No acute fracture. There are 5 nonrib-bearing lumbar vertebral bodies. Alignment is normal. Disc spac es are maintained. There are tiny anterior osteophytes at multiple levels. Small disc bulges at L4-L5 and L5-S1 without significant canal or foraminal narrowing There is calcified aortoiliac atheroscler osis. IMPRESSION: 1. No acute intracranial abnormality. 2. No acute osseous abnormality of the cervical, thoracic, or lumbar spine. 3. Unchanged appearance of interbody fusion at C4-C5 and degenerative disc disease in the cervical sp ine with canal stenosis at C3-C4. Electronically signed by: Marleny Strauss MD (04/10/2022 8:53 PM) [id number]
--- NOTE | 2022-04-10 20:58 | RAD ---
Exam: Chest one view INDICATION: Ground-level fall, pain TECHNIQUE: Frontal view of the chest Comparisons: 03/05/2022 FINDINGS: The cardiomediastinal silhouette and pulmonary vessels are within normal limits. The lung and pleural spaces are clear. IMPRESSION: No acute cardiopulmonary process. Electronically signed by: Merly Jiménez MD (04/10/2022 8:56 PM) [place]
--- NOTE | 2022-04-10 21:01 | RAD ---
EXAM: XR PELVIS 1-2V 04/10/2022 8:16 PM CLINICAL INDICATION: Ground-level fall COMPARISON: None TECHNIQUE: AP view of the pelvis FINDINGS: The lateral aspect of the right greater trochanter is not well evaluated due to underpenetr ation. No acute fracture. Alignment is normal. There is mild degenerative joint disease of the hips. No pubic symphysis or sacroiliac joint widening. IMPRESSION: No acute osseous abnormality. Electronically signed by: Marleny Strauss MD (04/10/2022 8:59 PM) [id number]
[2022-04-10] MEDS ORDERED: MORPHINE SULFATE 4 MG/ML INJ. IVP ONE (21:15)
[2022-04-10 21:17] LABS: BASO # 0.1 x10^3/uL (0.0-0.2); BASO % 1 % (0-3); EOS # 0.1 x10^3/uL (0.0-0.7); EOS % 1 % (0-3); HEMATOCRIT 37.6 % (39.0-53.0); HEMOGLOBIN 12.3 g/dL (13.0-17.5); LYMPH # 1.2 x10^3/uL (1.0-4.8); LYMPH % 14 % (24-48); MEAN CORPUSCULAR HEMOGLOBIN 28 pg (25-35); MEAN CORPUSCULAR HGB CONC 33 g/dL (31-37); MEAN CORPUSCULAR VOLUME 85 fL (79-100); MONO # 0.6 x10^3/uL (0.0-1.1); MONO % 7 % (0-9); NEUT % 78 % (31-73); PLATELET COUNT 257 x10^3/uL (140-400); RED BLOOD COUNT 4.41 x10^6/uL (4.30-5.70); RED CELL DISTRIBUTION WIDTH 19.5 % (11.5-14.5); WHITE BLOOD COUNT 9.1 x10^3/uL (4.0-11.0)
[2022-04-10 21:51] LABS: CALCIUM 7.8 mg/dL (8.5-10.1); GFR 93.2; POTASSIUM 5.2 mmol/L (3.5-5.1)
[2022-04-10 21:58] LABS: ALBUMIN 2.3 g/dL (3.4-5.0); ALBUMIN/GLOBULIN RATIO 0.7 (1.0-1.7); TOTAL BILIRUBIN 0.4 mg/dL (0.2-1.0); TOTAL PROTEIN 5.6 g/dL (6.4-8.2)
[2022-04-10] MEDS ORDERED: HYDROcodone/APAP 10/325 1 TAB TABLET PO ONE (22:15)
[2022-04-10] MEDS ORDERED: DEXTROSE 50% 25 GM / 50ML DISP.SYRIN. IV PRN (22:45)
[2022-04-11] MEDS ORDERED: INSULIN LISPRO 300 UNITS/3 ML VIAL. SQ SCH (08:00)
== END 2022-04-10 23:16 | disposition home or self-care (01) ==
LOC: ER 19:33
DX: M25.552 Pain in left hip (principal); M54.89 Other dorsalgia; G89.11 Acute pain due to trauma; F17.200 Nicotine dependence, unspecified, uncomplicated; E11.65 Type 2 diabetes mellitus with hyperglycemia; W18.39XA Other fall on same level, initial encounter; Y93.89 Activity, other specified; Y92.89 Other specified places as the place of occurrence of the external cause; Y99.8 Other external cause status
CPT/HCPCS: 36415; 70450; 71045; 72125; 72128; 72131; 72170; 80053; 82962; 85025; 96361; 96374; 96375; 99285; J1815; J2270; J7030; 99284-25

== ENCOUNTER 2022-04-11 02:47 | Emergency (ER) | payer MEDICARE, MEDICAID ==
[~2022-04-11] VITALS: Ht 162.6 cm; Wt 57.8 kg
[2022-04-11 02:57] VITALS: BP 160/75
[2022-04-11] MEDS ORDERED: HYDROcodone/APAP 10/325 1 TAB TABLET PO ONE (03:15)
[2022-04-11] MEDS ORDERED: LIDOCAINE (700MG/PATCH) PATCH. TD ONE (03:30)
[2022-04-11] MEDS ORDERED: PREGABALIN 75 MG CAPSULE PO ONE (03:30)
--- NOTE | 2022-04-11 03:32 | PHYS DOC ---
Past Medical History Past Medical History: Depression, Diabetes-Type II, Hypertension, Pancreatitis, Other Additional Past Medical Histor: C-DIFF, COLLAPSED LUNG Past Surgical History: No Surgical History Additional Past Surgical Histo: Whipple, scar tissue repair, NECK FUSIONS Smoking Status: Never Smoker Alcohol Use: None Drug Use: None General Adult EDM: Chief Complaint: BACK PAIN OR INJURY HPI: HPI: 57-year-old male, recent spontaneous pneumothorax, hx of right-sided large bore chest tube, recently discharged 1 week ago, type 2 diabetes, hypertension, chronic pancreatitis, chronic abdominal and body pain, status post Whipple's procedure, depression, C. difficile colitis, on oral vancomycin, opioid dependence, discharged from ED here tonight for mechanical fall with no apparent injury, was waiting in the waiting room for several hours for a taxi, now presenting for generalized body pain. Patient states he usually takes oxy 10 q4 hrs and pregabalin BID and Creon for his abdominal pain. No new trauma. Ambulating with steady gait. Review of Systems: Review of Systems: Constitutional: + body pain, Denies fever or chills. [] Eyes: Denies change in visual acuity. [] HENT: Denies nasal congestion or sore throat. [] Respiratory: Denies cough or shortness of breath. [] Cardiovascular: Denies chest pain or edema. [] GI: Denies abdominal pain, nausea, vomiting, bloody stools or diarrhea. [] : Denies dysuria. [] Musculoskeletal: + back pain or joint pain. [] Integument: Denies rash. [] Neurologic: Denies headache, focal weakness or sensory changes. [] Endocrine: Denies polyuria or polydipsia. [] Lymphatic: Denies swollen glands. [] Psychiatric: Denies depression or anxiety. [] Heart Score: C/O Chest Pain: No Risk Factors: Risk Factors: DM, Current or recent (<one month) smoker, HTN, HLP, family history of CAD, obesity. Risk Scores: Score 0 - 3: 2.5% MACE over next 6 weeks - Discharge Home Score 4 - 6: 20.3% MACE over next 6 weeks - Admit for Clinical Observation Score 7 - 10: 72.7% MACE over next 6 weeks - Early Invasive Strategies Current Medications: Current Medications Medications (Trade) Dose Ordered Sig/Rajiv Start Time Stop Time Status Last Admin Dose Admin Acetaminophen/ Hydrocodone Bitart (Lortab 10/325) 1 tab 1X ONCE 04/11/22 03:15 04/11/22 03:19 DC Amylase/Lipase/ Protease (Zenpep 10,000) 2 cap TIDWMEALS 04/11/22 08:00 Lidocaine (Lidoderm) 1 patch 1X ONCE 04/11/22 03:30 04/11/22 03:31 Pregabalin (Lyrica) 300 mg 1X ONCE 04/11/22 03:30 04/11/22 03:31 Allergies: Allergies: Allergies Coded Allergies Type Severity Reaction Last Updated Verified acetaminophen Allergy Intermediate 04/11/22 Yes fentanyl Allergy Intermediate Hives 04/11/22 Yes ketorolac Allergy Intermediate Hives 04/11/22 Yes tramadol Allergy Intermediate Hives 04/11/22 Yes Physical Exam: PE: Constitutional: Well developed, well nourished, no acute distress, non-toxic appearance. [] HENT: Normocephalic, atraumatic, bilateral external ears normal, oropharynx moist, no oral exudates, nose normal. [] Eyes: PERRLA, EOMI, conjunctiva normal, no discharge. [] Neck: Normal range of motion, no tenderness, supple, no stridor. [] Cardiovascular:Heart rate regular rhythm, no murmur [] Lungs & Thorax: Bilateral breath sounds clear to auscultation [] Abdomen: old exlap scar, Bowel sounds normal, soft, no tenderness, no masses, no pulsatile masses. [] Skin: Warm, dry, no erythema, no rash. [] Back: No tenderness, no CVA tenderness. [] Extremities: No tenderness, no cyanosis, no clubbing, ROM intact, no edema. [] Neurologic: Alert and oriented X 3, normal motor function, normal sensory function, no focal deficits noted. [] Normal steady gait. Psychologic: Affect normal, judgement normal, mood normal. [] Current Patient Data: Vital Signs: Vital Signs Date Time Temp Pulse Resp B/P (MAP) Pulse Ox O2 Delivery O2 Flow Rate FiO2 04/11/22 02:57 98.1 77 18 160/75 (103) 100 Room Air 98.1 EKG: EKG: [] Radiology/Procedures: Radiology/Procedures: [] Course & Med Decision Making: Course & Med Decision Making Pertinent Labs and Imaging studies reviewed. (See chart for details) Additional Social History: PMD from non-affiliated facility. Patient Lives at home. Family History: Non-pertinent to today's complaint. Nursing Notes Reviewed Previous Medical Records requested via [employer]: Reviewed by me. EMERGENCY DEPARTMENT COURSE/ MEDICAL DECISION MAKING: I examined the patient, evaluated and addressed patient's chief complaint. 57-year-old male with chronic abdominal pain and body pain, dependence on Hawkeye, followed closely by PMD Dr. Viera, recently discharged from ED today for mechanical fall without injury, was waiting in the waiting room for several hours for his taxi ride and complaining of generalized body pain. Patient states he is due for his pain medications which he doesn't have on him. No new trauma or falls. The patient was treated with Hawkeye, lidocaine patch, pregabalin, Creon. On re-assessment, patient feels much better. The patient understands that todays Emergency Department evaluation does not represent a comprehensive medical workup, and it is impossible to diagnose all possible illnesses from a single Emergency Department visit. The patient verbalized understanding that it is absolutely necessary to have follow-up with regular primary care physician within 1-2 days for more detailed workup and continued exam. I explained the findings and plan to the patient, who expressed verbal understanding and agreed with plan for discharge and follow up. The patient was given after care instructions and welcomed to return to the ED for re-evaluation in 8-12 hours, especially for any new or worsening symptoms. Patient's blood pressure was elevated (>120/80) but appears stable without evidence of end organ damage, malignant hypertension, hypertensive emergency or urgency. The patient was counseled about the risks of hypertension and urged to pursue outpatient monitoring and therapy within a week with their primary care physician. The patient was stable at the time of discharge. DIAGNOSTIC IMPRESSION: 1. generalized chronic body pain DISPOSITION: Disposition: Discharge Home. Condition: Improved Follow-Up: PMD Prescriptions: None Return to the Emergency Department for new or worsening symptoms. Dragon Disclaimer: Dragon Disclaimer: This electronic medical record was generated, in whole or in part, using a voice recognition dictation system. Departure Departure Impression: Primary Impression: Chronic back pain Additional Impression: Total body pain Disposition: HOME / SELF CARE / HOMELESS Condition: STABLE Referrals: Katelin VIERA MD (PCP) STACIA MOORE MD April 11, 2022 03:32
[2022-04-11] MEDS ORDERED: LIPASE/PROTEAS/AMYLAS 10/32/42 CAPSULE.DR. PO SCH (08:00)
== END 2022-04-11 05:21 | disposition home or self-care (01) ==
LOC: ER 02:47
DX: M54.9 Dorsalgia, unspecified (principal); G89.11 Acute pain due to trauma; E11.9 Type 2 diabetes mellitus without complications; I10 Essential (primary) hypertension; Z88.4 Allergy status to anesthetic agent; Z88.6 Allergy status to analgesic agent; W18.39XA Other fall on same level, initial encounter; Y93.89 Activity, other specified; Y92.89 Other specified places as the place of occurrence of the external cause; Y99.8 Other external cause status
CPT/HCPCS: 99284